=== PATIENT | female | born 1950 | race American Indian/Alaskan Native ===

== ENCOUNTER 2018-08-15 06:06 | Inpatient (IN) | payer BC, MEDICARE ==
[2018-08-08 13:42] VITALS: BMI 31.0
[2018-08-15 07:09] LABS: HEMOGLOBIN 12.7 g/dL (12.0-16.0); MEAN CELL VOLUME 88.4 fl (81.0-99.0); MEAN CORPUSCULAR HEMOGLOBIN 29.9 pg (27.0-31.0); MEAN CORPUSCULAR HGB CONC 33.9 g/dL (33.0-37.0); RBC 4.25 Mil/uL (3.80-5.20); RED CELL DISTRIBUTION WIDTH 13.6 % (11.5-14.5); WHITE BLOOD COUNT 4.5 K/uL (4.8-10.8)
[2018-08-15] MEDS ORDERED: Bacitracin Ointment 30 GM TUBE ONE (07:48)
[2018-08-15] MEDS ORDERED: Thrombin Topical 5,000 Int Units Spray Kit ONE (07:48)
[2018-08-15] MEDS ORDERED: Absorbable Gelatin Sponge Size 12-7 ONE (07:48)
[2018-08-15] MEDS ORDERED: Lactated Ringer's 1,000 ML IV ONE ×2 (07:56→14:30)
--- NOTE | 2018-08-15 08:22 | CP.PCM.CON ---
History of Present Illness - History of Present Illness History of Present Illness: Orthopedic H&P: Dr. Brock Patient is a 68 y/o F with PMH of RA, gastritis, HTN and mitral valve regurgitation presents for elective L TITO. The patient has had history of non- traumatic, chronic L hip pain for the past year that has been resistant to conservative management. She elected for surgical intervention with total joint replacement. The pain has severely limited her activities of daily living such as walking and sitting. The pain is dull, intermittent and located at the groin. The pain worsens with WB activities and alleviates with rest. She denies radiation of pain, numbness or tingling. She also denies CP/SOB/N/V/D/fever/ dysuria/melena. She denies any h/o thromboembolic events/cardiovasuscular surgeries. Review of Systems - Review of Systems All systems: reviewed and no additional remarkable complaints except Review of Systems: as per HPI Past Patient History - Past Medical History & Family History Past Medical History?: Yes Past Family History: Reviewed and not pertinent - Past Social History Smoking Status: Never Smoked Alcohol: None Drugs: Denies - CARDIAC Hx Cardiac Disorders: Yes Hx Hypertension: Yes - PULMONARY Hx Respiratory Disorders: No - NEUROLOGICAL Hx Neurological Disorder: No - HEENT Hx HEENT Problems: No - RENAL Hx Chronic Kidney Disease: No - ENDOCRINE/METABOLIC Hx Endocrine Disorders: No - HEMATOLOGICAL/ONCOLOGICAL Hx Blood Disorders: No - INTEGUMENTARY Hx Dermatological Problems: No - MUSCULOSKELETAL/RHEUMATOLOGICAL Hx Musculoskeletal Disorders: Yes Hx Arthritis: Yes (general) Hx Degenerative Joint Disease: Yes Hx Rheumatoid Arthritis: Yes - GASTROINTESTINAL Hx Gastrointestinal Disorders: Yes Hx Gastritis: Yes Hx Ulcer: Yes (GASTRIC) - GENITOURINARY/GYNECOLOGICAL Hx Genitourinary Disorders: No - PSYCHIATRIC Hx Psychophysiologic Disorder: No Hx Substance Use: No - SURGICAL HISTORY Hx Surgeries: Yes Hx Appendectomy: Yes Hx Hysterectomy: Yes Other/Comment: Uterine sx - ANESTHESIA Hx Anesthesia: Yes Hx Anesthesia Reactions: No Hx Malignant Hyperthermia: No Has any member of the family had a problem w/ anesthesia?: No Meds Allergies/Adverse Reactions: Allergies Allergy/AdvReac Type Severity Reaction Status Date / Time Penicillins Allergy Verified 07/31/18 07:47 - Medications Medications: as per med rec Physical Exam - Constitutional Appears: Well, No Acute Distress - Head Exam Head Exam: ATRAUMATIC, NORMOCEPHALIC - Eye Exam Eye Exam: EOMI, Normal appearance, PERRL - ENT Exam ENT Exam: Mucous Membranes Moist - Respiratory Exam Respiratory Exam: Clear to Auscultation Bilateral, NORMAL BREATHING PATTERN - Cardiovascular Exam Cardiovascular Exam: +S1, +S2 - GI/Abdominal Exam GI & Abdominal Exam: Normal Bowel Sounds, Soft - Extremities Exam Additional comments: L hip: +lateral hip and groin tenderness no lesion, no erythema sensation intact SP/DP/TN motor intact EHL/FHL/TA/G/Q/HS pedal pulses intact comps soft NT b/l - Neurological Exam Neurological exam: Alert, Oriented x3 - Psychiatric Exam Psychiatric exam: Normal Affect, Normal Mood - Skin Skin Exam: Normal Color, Warm Results - Vital Signs Recent Vital Signs: Last Vital Signs Temp 98 F 08/15/18 06:46 Pulse 72 08/15/18 06:49 Resp 20 08/15/18 06:46 BP 133/67 08/15/18 06:46 Pulse Ox 96 08/15/18 06:46 - Labs Result Diagrams: 08/15/18 06:35 Labs: Laboratory Results - last 24 hr 08/15/18 08/15/18 06:35 06:35 WBC 4.5 L RBC 4.25 Hgb 12.7 Hct 37.6 MCV 88.4 MCH 29.9 MCHC 33.9 RDW 13.6 Plt Count 217 Crossmatch See Detail BBK History Checked No verified bt Assessment & Plan (1) Osteoarthritis of left hip Assessment and Plan: -OR today for elective L TITO -Risks/benefits/alternatives were explained to the patient who understands and agrees to proceed with above procedure -Medical/cardiac clearance in chart -NPO -Admit to hospitalist -above d/w Dr. Brock in agreement Status: Acute - Date & Time Date: 08/15/18 Time: 08:00
[2018-08-15 08:39] LABS: INR 0.9; PROTHROMBIN TIME 10.3 Seconds (9.8-13.1)
[2018-08-15 08:42] LABS: PARTIAL THROMBOPLASTIN TIME 32.6 Seconds (25.6-37.1)
[2018-08-15] MEDS ORDERED: Propofol 10 mg/ml Inj (20 ML) ONE (10:34)
[2018-08-15] MEDS ORDERED: Rocuronium 10 mg/ml (5 ml) ONE ×2 (10:35→14:09)
[2018-08-15] MEDS ORDERED: Lidocaine 4% (Laryng-O-Jet) Kit MM ONE (10:35)
[2018-08-15] MEDS ORDERED: Neostigmine 1:1000 (1 mg/ml) Inj ONE (10:35)
[2018-08-15] MEDS ORDERED: Midazolam 2 MG/2 ML VIAL ONE (10:35)
[2018-08-15] MEDS ORDERED: Succinylcholine 200 mg/10 ml Inj IV ONE (10:35)
[2018-08-15] MEDS ORDERED: Lidocaine 1% 5ml Abboject ONE (10:36)
[2018-08-15] MEDS ORDERED: Sodium Chloride 0.9% 10 ML IV ONE (10:37)
[2018-08-15] MEDS ORDERED: ePHEDrine 50 mg/ml Inj ONE (10:37)
[2018-08-15] MEDS ORDERED: Phenylephrine 10 mg/ml Inj ONE (10:37)
[2018-08-15] MEDS ORDERED: Morphine 1 mg/ml preservative-free Inj(Duramorph) ONE (10:39)
[2018-08-15] MEDS ORDERED: Tranexamic Acid 1,000 MG in Sodium Chloride 0.9% 100 ML IVPB SCH (11:00)
[2018-08-15] MEDS ORDERED: Tranexamic Acid 1,000 MG in Sodium Chloride 0.9% 100 ML IVPB ONE (11:00)
[2018-08-15] MEDS ORDERED: Clindamycin 300 mg/2 ml Inj IVPB ONE (11:30)
[2018-08-15] MEDS ORDERED: EPINEPHrine 1 mg/ml (1:1000) Inj ONE (11:56)
[2018-08-15] MEDS ORDERED: HEMOSTATIC MATRIX 10 ML DIS.NEEDLE TOP ONE (14:01)
[2018-08-15] MEDS ORDERED: Sodium Chloride 0.9% 1,000 ML IV SCH (14:30)
[2018-08-15] MEDS ORDERED: DiphenhydrAMINE 50 mg/ml Inj IVP PRN (15:47)
[2018-08-15] MEDS ORDERED: Oxycodone/Acetaminophen 5/325 mg Tab PO PRN (15:47)
--- NOTE | 2018-08-15 17:00 | CP.PCM.HP ---
History of Present Illness - History of Present Illness History of Present Illness: Pt is a 68 yo Female with PMH of HTN, gastritis, RH arthritis with mitral regurgitation. S/P Elective Total LEFT hip replacement due to failure of medically management. Pt state Hip pain have been present for past year, it exacerbated by walking/activity, and relieved by rest. Pt have been seeing doctor for pain management with no relief. Pt denies any falls or trauma, state its due degenerative disorder. Pt have no other complain she denies any SOB, chest pain, abdominal pain, dysuria or polyuria. ROS: No pertinent positive except if mentioned in HPI Allergies: Penecillins Medication: Embrel, Hydrochlorothiazide 25mg PMH: as mentioned PSH: Total LEFT hip replacement Social: denies smoke drink or drug use Present on Admission - Present on Admission Any Indicators Present on Admission: No Review of Systems - Constitutional Constitutional: As Per HPI - EENT Eyes: As Per HPI - Breasts Breasts: As Per HPI - Cardiovascular Cardiovascular: As Per HPI - Respiratory Respiratory: As Per HPI - Gastrointestinal Gastrointestinal: As Per HPI - Genitourinary Genitourinary: As Per HPI - Reproductive: Female Reproductive:Female: As Per HPI - Menstruation Menstruation: As Per HPI - Musculoskeletal Musculoskeletal: As Per HPI - Integumentary Integumentary: As Per HPI Past Patient History - Past Medical History & Family History Past Medical History?: Yes Past Family History: Reviewed and not pertinent - Past Social History Smoking Status: Never Smoked Alcohol: None Drugs: Denies - CARDIAC Hx Cardiac Disorders: Yes Hx Hypertension: Yes - PULMONARY Hx Respiratory Disorders: No - NEUROLOGICAL Hx Neurological Disorder: No - HEENT Hx HEENT Problems: No - RENAL Hx Chronic Kidney Disease: No - ENDOCRINE/METABOLIC Hx Endocrine Disorders: No - HEMATOLOGICAL/ONCOLOGICAL Hx Blood Disorders: No - INTEGUMENTARY Hx Dermatological Problems: No - MUSCULOSKELETAL/RHEUMATOLOGICAL Hx Musculoskeletal Disorders: Yes Hx Arthritis: Yes (general) Hx Degenerative Joint Disease: Yes Hx Rheumatoid Arthritis: Yes - GASTROINTESTINAL Hx Gastrointestinal Disorders: Yes Hx Gastritis: Yes Hx Ulcer: Yes (GASTRIC) - GENITOURINARY/GYNECOLOGICAL Hx Genitourinary Disorders: No - PSYCHIATRIC Hx Psychophysiologic Disorder: No Hx Substance Use: No - SURGICAL HISTORY Hx Surgeries: Yes Hx Appendectomy: Yes Hx Hysterectomy: Yes Other/Comment: Uterine sx - ANESTHESIA Hx Anesthesia: Yes Hx Anesthesia Reactions: No Hx Malignant Hyperthermia: No Has any member of the family had a problem w/ anesthesia?: No Meds Allergies/Adverse Reactions: Allergies Allergy/AdvReac Type Severity Reaction Status Date / Time Penicillins Allergy Verified 07/31/18 07:47 Physical Exam - Constitutional Appears: Well, Non-toxic, No Acute Distress - Head Exam Head Exam: ATRAUMATIC, NORMAL INSPECTION, NORMOCEPHALIC - Eye Exam Eye Exam: EOMI, Normal appearance, PERRL Pupil Exam: NORMAL ACCOMODATION, PERRL - ENT Exam ENT Exam: Mucous Membranes Moist, Normal Exam - Neck Exam Neck exam: Positive for: Normal Inspection - Respiratory Exam Respiratory Exam: Clear to Auscultation Bilateral, NORMAL BREATHING PATTERN - Cardiovascular Exam Cardiovascular Exam: REGULAR RHYTHM, +S1, +S2 - GI/Abdominal Exam GI & Abdominal Exam: Hypoactive Bowel Sounds, Soft. absent: Tenderness - Neurological Exam Neurological exam: Alert - Psychiatric Exam Psychiatric exam: Normal Affect, Normal Mood - Skin Skin Exam: Dry, Intact, Normal Color, Warm - Additional Findings Additional findings: Pt was seen in the Post surgery room, Pt had samra hugger on, LEFT leg was wrapped. Results - Vital Signs Recent Vital Signs: Last Vital Signs Temp 96.5 F L 08/15/18 16:35 Pulse 69 08/15/18 16:50 Resp 18 08/15/18 16:50 BP 110/67 08/15/18 16:50 Pulse Ox 99 08/15/18 16:50 - Labs Result Diagrams: 08/15/18 06:35 Labs: Laboratory Results - last 24 hr 08/15/18 08/15/18 08/15/18 06:35 06:35 08:19 WBC 4.5 L RBC 4.25 Hgb 12.7 Hct 37.6 MCV 88.4 MCH 29.9 MCHC 33.9 RDW 13.6 Plt Count 217 PT 10.3 INR 0.9 APTT 32.6 Blood Type O POSITIVE Blood Type Confirm Antibody Screen Negative Crossmatch See Detail BBK History Checked No verified bt 08/15/18 08:19 WBC RBC Hgb Hct MCV MCH MCHC RDW Plt Count PT INR APTT Blood Type Blood Type Confirm O POSITIVE Antibody Screen Crossmatch BBK History Checked Assessment & Plan - Assessment and Plan (Free Text) Assessment: Pt is a 68 yo Female with PMH of HTN, gastritis, RH arthritis with mitral regurgitation. S/P Elective Total LEFT hip replacement. Post op day #0 Elective Total LEFT hip replacement Post Op day 0 Pt Awake, and alert Pt recovering well from surgery Vitals BP is 98/57, 71 HRother WNL Plan f/u CBC/ BMP F/U urine output 1L NaCL 100 ml h Continue Cleocin for surgery prophylaxis measure Motrin PRn for pain Oxycodon Prn for pain HTn Pt have Chronic HTn BP is 98/57 Plan WIll follow BP as this may be due to anesthesia Will reassess for blood pressure tomorrow As per now continue Home medication - Hydrochlorothiazide 25mg RH Arthritis Pt have hx of chronic arthritis Plan Continue home medication - Enbrel DVT Prophylaxis Lovenox 40
--- NOTE | 2018-08-15 17:04 | RAD ---
PROCEDURE: Left Hip X-ray Radiographs. HISTORY: s/p L TITO COMPARISON: None. FINDINGS: BONES: There is no acute displaced fracture or bone destruction. Bone alignment and mineralization are normal. JOINTS: Status post total left hip arthroplasty. The right hip joint space is preserved. SOFT TISSUES: There is soft tissue emphysema in the left periarticular soft tissues. OTHER FINDINGS: None. IMPRESSION: Status post total left hip arthroplasty, no acute complications.
--- NOTE | 2018-08-15 17:28 | PCM.SURG1 ---
Surgeon's Initial Post Op Note - Surgeon's Notes Surgeon: Vinod Chauffeur: DAVID Waggoner/ 2nd assist marium May Type of Anesthesia: General Endo, Spinal Anesthesia Administered By: DR Giron Pre-Operative Diagnosis: Severe Osteoarthritis L hip Operative Findings: Severe O/A L hip. synovitis L hip Post-Operative Diagnosis: as above Operation Performed: L THR- anterior approach. femoral neck osteotomy. release iliopsoas tendon. autograft bone graft to acetabulum. computer navigation Specimen/Specimens Removed: cartilage/synovium/bone Estimated Blood Loss: EBL {In ML}: 175 Blood Products Given: N/A Drains Used: No Drains Post-Op Condition: Good Date of Surgery/Procedure: 08/15/18 Time of Surgery/Procedure: 12:45 (time in room/anaesthesia uindcution time 11:15 )
[2018-08-15] MEDS: Clindamycin 600mg/50ml D5W 600 MG/50 ML VIAL IVPB SCH (21:18)
[2018-08-16] MEDS: Clindamycin 600mg/50ml D5W 600 MG/50 ML VIAL IVPB SCH (02:43)
[2018-08-16 07:02] LABS: HEMOGLOBIN 10.5 g/dL (12.0-16.0); MEAN CELL VOLUME 89.7 fl (81.0-99.0); MEAN CORPUSCULAR HGB CONC 33.4 g/dL (33.0-37.0); RBC 3.51 Mil/uL (3.80-5.20); RED CELL DISTRIBUTION WIDTH 14.1 % (11.5-14.5)
[2018-08-16 07:15] LABS: BLOOD UREA NITROGEN 16 mg/dl (7-17); CALCIUM 8.6 mg/dL (8.4-10.2); GFR NON-AFRICAN AMERICAN > 60
[2018-08-16] MEDS: Cholecalciferol 1,000 INTLU TAB PO SCH (08:48)
--- NOTE | 2018-08-16 10:30 | CP.PCM.PN ---
Subjective - Date & Time of Evaluation Date of Evaluation: 08/16/18 Time of Evaluation: 07:00 - Subjective Subjective: Pt is seen and examined at bedside with Dr Armstrong. Pt have no complain as per today. She denies any pain. She was able to ambulate to bathroom with help. She was able to pass urine 200cc, and gas but no stool. Pt would like stool softener. Pt denies fever, chills, chest pain abd pain diarrhea constipation or any other symptoms as per now. Pt is exited to start working with Physical therapy. Objective - Vital Signs/Intake and Output Vital Signs (last 24 hours): Temp Pulse Resp BP Pulse Ox 98.0 F 100 H 19 109/72 100 08/16/18 07:57 08/16/18 09:10 08/16/18 07:57 08/16/18 07:57 08/16/18 09:10 - Medications Medications: Current Medications Acetaminophen (Tylenol 325mg Tab) 650 mg PO Q6 [facility] Last Admin: 08/16/18 03:15 Dose: 650 mg Cholecalciferol (Vitamin D) 5,000 intlu PO DAILY [facility] Last Admin: 08/16/18 08:48 Dose: 5,000 intlu Diphenhydramine HCl (Benadryl) 50 mg IVP Q6 PRN PRN Reason: Itching / Pruritus Docusate Sodium (Colace) 100 mg PO BID [facility] Last Admin: 08/16/18 08:47 Dose: 100 mg Docusate Sodium (Colace) 100 mg PO TID PRN PRN Reason: Constipation Enoxaparin Sodium (Lovenox) 40 mg SC Q24H [facility] PRN Reason: Protocol Ferrous Sulfate (Feosol) 325 mg PO BID [facility] Last Admin: 08/16/18 08:47 Dose: 325 mg Folic Acid (Folic Acid) 1 mg PO DAILY [facility] Last Admin: 08/16/18 08:48 Dose: 1 mg Hydrochlorothiazide (Hydrodiuril) 25 mg PO DAILY [facility] Last Admin: 08/16/18 08:48 Dose: 25 mg Hydromorphone HCl (Dilaudid) 0.5 mg IVP Q4 PRN PRN Reason: Pain, severe (8-10) Sodium Chloride (Sodium Chloride 0.9%) 1,000 mls @ 80 mls/hr IV .[id number] [facility] Stop: 08/16/18 15:29 Last Admin: 08/16/18 02:45 Dose: 80 mls/hr Ondansetron HCl (Zofran Inj) 4 mg IVP Q6 PRN PRN Reason: Nausea/Vomiting Ondansetron HCl (Zofran Inj) 4 mg IVP Q6 PRN PRN Reason: Nausea/Vomiting Last Admin: 08/15/18 20:21 Dose: 4 mg Oxycodone HCl (Oxycodone Immediate Release Tab) 10 mg PO Q6 PRN PRN Reason: Pain, moderate (4-7) Oxycodone/Acetaminophen (Percocet 5/325 Mg Tab) 1 tab PO Q4 PRN PRN Reason: For PCEA Breakthrough Pain Stop: 08/18/18 15:48 Sennosides (Senokot Tab) 8.6 mg PO BID PRN PRN Reason: Constipation - Labs Labs: 08/16/18 06:15 08/16/18 06:15 PT 10.3 Seconds (9.8-13.1) 08/15/18 08:19 INR 0.9 08/15/18 08:19 APTT 32.6 Seconds (25.6-37.1) 08/15/18 08:19 - Constitutional Appears: Well, Non-toxic, No Acute Distress - Head Exam Head Exam: ATRAUMATIC, NORMAL INSPECTION, NORMOCEPHALIC - Eye Exam Eye Exam: EOMI, Normal appearance, PERRL Pupil Exam: NORMAL ACCOMODATION, PERRL - ENT Exam ENT Exam: Mucous Membranes Moist, Normal Exam - Neck Exam Neck Exam: Full ROM, Normal Inspection - Respiratory Exam Respiratory Exam: Clear to Ausculation Bilateral, NORMAL BREATHING PATTERN - Cardiovascular Exam Cardiovascular Exam: REGULAR RHYTHM, +S1, +S2 - GI/Abdominal Exam GI & Abdominal Exam: Soft, Normal Bowel Sounds - Extremities Exam Extremities Exam: Normal Capillary Refill, Normal Inspection Additional comments: SHASHA wrap noted on LEFT KNEE, surgical Pad noted on LEFT medial side of the THIGH. Pulse + in both extremities no calf tenderness Assessment and Plan - Assessment and Plan (Free Text) Assessment: Pt is a 68 yo f with PMH of HTN, Gastritis, RH arthritis With mitral regurgitation. S/P elective total LEFT Hip replacement. POST OP day #1 Elective Total LEFT hip replacement Post Op day 1 Pt Awake, and alert oriented Pt is recovering very well Able to ambulate with help, and pass urine Have passed gas but no stool Vitals WNL except HR of 100, BP is 104/68 CBC: hgb 10.5 from 12.7, hct 31.6 from 37.6 WBC WNL BNP WNL Plan Continue Cleocin for surgery prophylaxis measure Motrin PRn for pain Oxycodon Prn for pain Acute Anemia most likely due surgery hgb 10.5 from 12.7, hct 31.6 Plan Continue Ferrous sulfate Give Colace HTn Pt have Chronic HTn Plan BP improved, Pt mildly tachycardia will follow As per now continue Home medication - Hydrochlorothiazide 25mg RH Arthritis Pt have hx of chronic arthritis Plan Continue home medication - Enbrel DVT Prophylaxis Lovenox 40
--- NOTE | 2018-08-16 11:18 | CP.PCM.CON ---
History of Present Illness - History of Present Illness History of Present Illness: THE PATIENT IS A 68 YEAR OLD FEMALE WITH A HISTORY OF RHEUMATOID ARTHRITIS WHO UNDERWENT A LEFT THR YESTERDAY FOR PAIN NOT RELIEVED BY CONSERVATIVE TREATMENT. SHE ALSO HAD BILATERAL KNEE SURGERY IN THE PAST. CARDIOLOGY WAS ASKED TO FOLLOW HER ON THIS ADMISSION. SHE DENIES ANY HISTORY OF CHEST PAIN OR CAD AND HAD A NEGATIVE PHARMACOLOGICAL STRESS TEST BEFORE SURGERY. SHE ALSO HAD AN ECHOCARDIOGRAM THAT SHE STATES SHOWED MITRAL REGURGITATION. Past Patient History - Past Medical History & Family History Past Medical History?: Yes Past Family History: Reviewed and not pertinent - Past Social History Smoking Status: Never Smoked Alcohol: None Drugs: Denies - CARDIAC Hx Cardiac Disorders: Yes Hx Hypertension: Yes - PULMONARY Hx Respiratory Disorders: No - NEUROLOGICAL Hx Neurological Disorder: No - HEENT Hx HEENT Problems: No - RENAL Hx Chronic Kidney Disease: No - ENDOCRINE/METABOLIC Hx Endocrine Disorders: No - HEMATOLOGICAL/ONCOLOGICAL Hx Blood Disorders: No - INTEGUMENTARY Hx Dermatological Problems: No - MUSCULOSKELETAL/RHEUMATOLOGICAL Hx Musculoskeletal Disorders: Yes Hx Arthritis: Yes (general) Hx Degenerative Joint Disease: Yes Hx Rheumatoid Arthritis: Yes - GASTROINTESTINAL Hx Gastrointestinal Disorders: Yes Hx Gastritis: Yes Hx Ulcer: Yes (GASTRIC) - GENITOURINARY/GYNECOLOGICAL Hx Genitourinary Disorders: No - PSYCHIATRIC Hx Psychophysiologic Disorder: No Hx Substance Use: No - SURGICAL HISTORY Hx Surgeries: Yes Hx Appendectomy: Yes Hx Hysterectomy: Yes Other/Comment: Uterine sx - ANESTHESIA Hx Anesthesia: Yes Hx Anesthesia Reactions: No Hx Malignant Hyperthermia: No Has any member of the family had a problem w/ anesthesia?: No Meds Allergies/Adverse Reactions: Allergies Allergy/AdvReac Type Severity Reaction Status Date / Time Penicillins Allergy Verified 07/31/18 07:47 - Medications Medications: Current Medications Acetaminophen (Tylenol 325mg Tab) 650 mg PO Q6 [facility] Last Admin: 08/16/18 03:15 Dose: 650 mg Cholecalciferol (Vitamin D) 5,000 intlu PO DAILY [facility] Last Admin: 08/16/18 08:48 Dose: 5,000 intlu Diphenhydramine HCl (Benadryl) 50 mg IVP Q6 PRN PRN Reason: Itching / Pruritus Docusate Sodium (Colace) 100 mg PO BID [facility] Last Admin: 08/16/18 08:47 Dose: 100 mg Docusate Sodium (Colace) 100 mg PO TID PRN PRN Reason: Constipation Enoxaparin Sodium (Lovenox) 40 mg SC Q24H [facility] PRN Reason: Protocol Ferrous Sulfate (Feosol) 325 mg PO BID [facility] Last Admin: 08/16/18 08:47 Dose: 325 mg Folic Acid (Folic Acid) 1 mg PO DAILY [facility] Last Admin: 08/16/18 08:48 Dose: 1 mg Hydrochlorothiazide (Hydrodiuril) 25 mg PO DAILY [facility] Last Admin: 08/16/18 08:48 Dose: 25 mg Hydromorphone HCl (Dilaudid) 0.5 mg IVP Q4 PRN PRN Reason: Pain, severe (8-10) Sodium Chloride (Sodium Chloride 0.9%) 1,000 mls @ 80 mls/hr IV .[id number] [facility] Stop: 08/16/18 15:29 Last Admin: 08/16/18 02:45 Dose: 80 mls/hr Ondansetron HCl (Zofran Inj) 4 mg IVP Q6 PRN PRN Reason: Nausea/Vomiting Ondansetron HCl (Zofran Inj) 4 mg IVP Q6 PRN PRN Reason: Nausea/Vomiting Last Admin: 08/15/18 20:21 Dose: 4 mg Oxycodone HCl (Oxycodone Immediate Release Tab) 10 mg PO Q6 PRN PRN Reason: Pain, moderate (4-7) Oxycodone/Acetaminophen (Percocet 5/325 Mg Tab) 1 tab PO Q4 PRN PRN Reason: For PCEA Breakthrough Pain Stop: 08/18/18 15:48 Sennosides (Senokot Tab) 8.6 mg PO BID PRN PRN Reason: Constipation Physical Exam - Respiratory Exam Respiratory Exam: Clear to Auscultation Bilateral - Cardiovascular Exam Cardiovascular Exam: REGULAR RHYTHM, +S1, +S2 - Extremities Exam Additional comments: NO LE EDEMA Results - Vital Signs Recent Vital Signs: Last Vital Signs Temp 98.0 F 08/16/18 07:57 Pulse 100 H 08/16/18 09:10 Resp 19 08/16/18 07:57 BP 109/72 08/16/18 07:57 Pulse Ox 100 08/16/18 09:10 - Labs Result Diagrams: 08/16/18 06:15 08/16/18 06:15 Labs: Laboratory Results - last 24 hr 08/16/18 08/16/18 06:15 06:15 WBC 8.0 D RBC 3.51 L Hgb 10.5 L D Hct 31.5 L MCV 89.7 MCH 30.0 MCHC 33.4 RDW 14.1 Plt Count 166 Sodium 139 Potassium 4.1 Chloride 106 Carbon Dioxide 25 Anion Gap 12 BUN 16 Creatinine 0.8 Est GFR ( Amer) > 60 Est GFR (Non-Af Amer) > 60 Random Glucose 118 H Calcium 8.6 Assessment & Plan - Assessment and Plan (Free Text) Assessment: LEFT TOTAL HIP REPLACEMENT HYPERTENSION Plan: CONTINUE HCTZ, LOVENOX AND PAIN MEDICINES
--- NOTE | 2018-08-16 13:04 | RAD ---
Date of service: 08/15/2018 PROCEDURE: Fluoroscopy up to 1 hr. HISTORY: LT. HIP ORIF COMPARISON: None TECHNIQUE: Standard protocol for this study/examination. FINDINGS: Total fluoroscopic time (continuous mode) utilized during the procedure 13.2 (seconds). IMPRESSION: Less than 1 hr fluoroscopic assistance provided during performance of the procedure.
--- NOTE | 2018-08-16 13:24 | CP.PCM.PN ---
Subjective - Date & Time of Evaluation Date of Evaluation: 08/16/18 Time of Evaluation: 13:21 - Subjective Subjective: Patient states pain is moderate but controlled. Sitting on edge of bed eating breakfast. Denies CP/SOB/dizziness. Objective - Vital Signs/Intake and Output Vital Signs (last 24 hours): Temp Pulse Resp BP Pulse Ox 98.0 F 100 H 19 109/72 100 08/16/18 07:57 08/16/18 09:10 08/16/18 07:57 08/16/18 07:57 08/16/18 09:10 - Medications Medications: Current Medications Acetaminophen (Tylenol 325mg Tab) 650 mg PO Q6 [facility] Last Admin: 08/16/18 10:00 Dose: 650 mg Cholecalciferol (Vitamin D) 5,000 intlu PO DAILY [facility] Last Admin: 08/16/18 08:48 Dose: 5,000 intlu Diphenhydramine HCl (Benadryl) 50 mg IVP Q6 PRN PRN Reason: Itching / Pruritus Docusate Sodium (Colace) 100 mg PO BID [facility] Last Admin: 08/16/18 08:47 Dose: 100 mg Docusate Sodium (Colace) 100 mg PO TID PRN PRN Reason: Constipation Enoxaparin Sodium (Lovenox) 40 mg SC Q24H [facility] PRN Reason: Protocol Ferrous Sulfate (Feosol) 325 mg PO BID [facility] Last Admin: 08/16/18 08:47 Dose: 325 mg Folic Acid (Folic Acid) 1 mg PO DAILY [facility] Last Admin: 08/16/18 08:48 Dose: 1 mg Hydrochlorothiazide (Hydrodiuril) 25 mg PO DAILY [facility] Last Admin: 08/16/18 08:48 Dose: 25 mg Hydromorphone HCl (Dilaudid) 0.5 mg IVP Q4 PRN PRN Reason: Pain, severe (8-10) Last Admin: 08/16/18 11:15 Dose: 0.5 mg Sodium Chloride (Sodium Chloride 0.9%) 1,000 mls @ 80 mls/hr IV .[id number] [facility] Stop: 08/16/18 15:29 Last Admin: 08/16/18 02:45 Dose: 80 mls/hr Ondansetron HCl (Zofran Inj) 4 mg IVP Q6 PRN PRN Reason: Nausea/Vomiting Ondansetron HCl (Zofran Inj) 4 mg IVP Q6 PRN PRN Reason: Nausea/Vomiting Last Admin: 08/15/18 20:21 Dose: 4 mg Oxycodone HCl (Oxycodone Immediate Release Tab) 10 mg PO Q6 PRN PRN Reason: Pain, moderate (4-7) Oxycodone/Acetaminophen (Percocet 5/325 Mg Tab) 1 tab PO Q4 PRN PRN Reason: For PCEA Breakthrough Pain Stop: 08/18/18 15:48 Sennosides (Senokot Tab) 8.6 mg PO BID PRN PRN Reason: Constipation - Labs Labs: 08/16/18 06:15 08/16/18 06:15 PT 10.3 Seconds (9.8-13.1) 08/15/18 08:19 INR 0.9 08/15/18 08:19 APTT 32.6 Seconds (25.6-37.1) 08/15/18 08:19 - Extremities Exam Additional comments: Left hip: thigh soft, mildly tender, +ROM ankle/toes, sensation intact +DP/PT pulses calves soft NT neg homans sensation intact, dressing intact, no visible drainage Assessment and Plan (1) Osteoarthritis of left hip Assessment & Plan: POD#1 s/p left THR -PT/OT-d/c planning VTE proph ortho stable d/w Dr. Brock, agrees with above Status: Acute (2) Acute blood loss anemia Assessment & Plan: stable Status: Acute
[2018-08-16] MEDS: Enoxaparin 40 mg Syringe SC SCH (17:40)
--- NOTE | 2018-08-16 18:35 | OP ---
PROCEDURE DATE: 08/15/2018 LOCATION: [facility]. PREOPERATIVE DIAGNOSIS: Severe primary osteoarthritis of the left hip. POSTOPERATIVE DIAGNOSIS: Severe primary osteoarthritis of the left hip. PROCEDURES: 1. Left total hip replacement arthroplasty, anterior approach. 2. Femoral neck osteotomy (deserves a modifier separate procedure because of the extensive preoperative planning, intraoperative planning to achieve leg-length and equality). 3. Arthrotomy and synovectomy. 4. Release of iliopsoas tendon. 5. Autograft bone grafting. 6. Computer navigation. SURGEON: Giacomo Brock MD ENGINEERING TECHNICAL ANALYST: CINTHIA August, certified registered nursing first mate. SECOND EARTH SCIENCE TECHNICAL OFFICER: Mike May PA-C. OPERATIVE PROCEDURE: Nikki Montes is a woman well-known to my practice, who presents as a referral from Dr. Carney. She has systemic rheumatoid arthritis with superimposed severe degenerative change. Pros, cons, risks and benefits of surgical approach were discussed. The possibility of mechanical failure, infection, thromboembolic disease, possibility of secondary or tertiary surgery was discussed. The concept of computer navigation had been discussed. After having obtained informed consent in the above fashion, after having identified side, site and procedure and critical pause/time-out, after the satisfactory induction of the anesthetic, the patient identified as Nikki Montes, is placed in the supine position in the [facility] positioner. The pannus was reflected out of the surgical field and the topographic anatomy of the hip was identified, the anterior superior iliac spine, the greater trochanter. After sterilely prepping and draping the left hip and the left lower extremity under the surgeon's direction, the fluoroscope was positioned, video images were generated, therapeutic decisions were made therefrom. Verification of position was accomplished and preoperative planning for the level of the neck osteotomy had been accomplished and intraoperative confirmation was accomplished at this point in time. At this point in time, the [employer] computer navigation process is introduced at the anterior superior iliac spine on the right and the anterior superior iliac spine on the left. Verification of position was offered on image intensification views, and after sterilely prepping and draping, after the satisfactory induction of the anesthetic, after having obtained informed consent in the above fashion. An incision was described one fingerbreadth distal to the anterior superior iliac spine and four fingerbreadths distal to that. The patient is morbidly obese and this is a complexity modifier. The patient is morbidly obese with BMI demanding that clarification. An incision was accomplished 3 cm posterior to the anterior superior iliac spine and 1 cm distal inline with the tensor fascia femoris muscle. The skin incision was carried down through the skin and subcutaneous tissue. Hemostasis controlled with the electrocautery. Hemostasis controlled with the Aquamantys wand. This having been accomplished, the fascia superficial to the tensor fascia femoris muscle was divided and this having been accomplished, the Larry was used to grasp the anterior leading edge and the muscle was taken down from the investing fascia. This having been accomplished, the muscle was taken down from the investing fascia. The Medacta Weitlaner retractor was placed and the vessels at the posterior aspect of the rectus femoris are clearly identified and the Aquamantys was used to control the same. This having been accomplished, the modified Medacta retractor was placed deeper. The fascia was carefully divided cell layer by cell layer and the underlying anterior branch of the lateral femoral circumflex vessels is identified. This having been accomplished, the vessels were grasped and are divided after they were grasped with tonsil clamps and hemostasis controlled with suture ligature. This having been accomplished, the fat pad in the region of the acetabulum was elevated and all fat pads superficial to the hip capsule were elevated. This having been accomplished, the capsule was elevated from lateral to medial and is elevated from the neck of the femur. This was brought back in the area of the intertrochanteric tubercle and the capsule was tagged, portion was released. This having been accomplished, the wound was thoroughly irrigated. The Medacta retractor was used to replace to expose the neck. A Ray-Cyrus sponge is packed and this having been accomplished, the osteotomy was accomplished in the area of the greater trochanter at the predetermined point as planned both preoperatively and virtually intraoperatively with image intensification views. This having been accomplished, external rotation 45 degrees with complex 0.5 inch osteotome is used to expose the neck. The corkscrew was placed, the was removed, osteophytes removed. The labrum was excised anterior and posterior. The Medacta retractor was placed and this having been accomplished, the reaming commences head size as 50, reaming commences at 50 advances to a 52 and it should be noted that computer navigation at this point in time commences, the two K-wires were introduced into the anterior superior iliac spine. The base is applied and the optical camera for the navigation/accelerometer was placed. This having been accomplished, the navigation commences. The computer had been registered of the frontal plane and the pelvis had been registered anterior superior iliac spine medially and laterally. This having been accomplished, the probe/sensor was placed on the reamer and reamings were carried out to approximately 40 degrees of abduction and 20 degrees of anteversion. The reamings were collected and denuded via articular cartilage. At this point in time, the 52 mm reamer is the last reamer and 52 cuff trial was introduced and found to be excellent in position and fit. This having been accomplished, the reaming is denuded of articular cartilage. Autograft bone graft was used to the acetabulum. The 52 mm pack the cup was introduced for the scratched fit. Autograft bone graft to the acetabulum had been accomplished. The fit was found to be excellent. Verification of position is offered on image intensification views. This having been accomplished, attention is now turned to the femur. External rotation to 135 degrees was accomplished. At this point time, the pubofemoral ligament is released as well as the area of the piriformis fossa. The piriformis tendon was left intact and at this point in time, there was found to be more mobility of the femur. External rotation to approximately 165 degrees. At this point in time, the ischial femoral ligament is released as well. Hyperextension of the femur was accomplished and the femur was exposed with the Lakshmi retractors. It should be noted that the iliopsoas tendon had been released. At this point in time, the femur having been released is introduced into the wound. The bridge of bone between the neck of the trochanter was removed from the bur. The box chisel was removed from the femoral neck. This having been accomplished, the rasp was introduced. The canal having been found. Sequential broaching is carried out to #4 of femoral component, +3.5 head, standard neck, outer bearing was applied. The hip was reduced and found to be stable in all planes. This having been accomplished, verification of position is offered on image intensification views. This having been accomplished, the broach was removed. The stem was introduced with the ceramic and the polyethylene outer bearing. The hip was reduced and found to be stable in all planes. This having been accomplished, the wound was thoroughly irrigated. The hip was reduced and found to be stable in all planes, internal rotation, external rotation, flexion, no evidence of instability. Verification of leg length was excellent. It should be noted that the cup position by computer navigation with the sensor placed on the introduction device is found to be approximately 41 degrees and 19 degrees of anteversion. This having been found to be excellent, the wound was thoroughly irrigated. FloSeal was employed. Hemostasis controlled with the Aquamantys. Closure of the tensor fascia femoris was with 0 Quill followed by 0 Quill and vianney for skin. The closure of the incisions for the K-wires for the [employer] computer navigation is with Vicryl and nylon. Compression dressing was applied. Postoperative x-rays reveal excellent position of the construct. Giacomo Brock MD
[2018-08-17 00:29] VITALS: RESP 19
[2018-08-17 06:26] LABS: HEMOGLOBIN 9.6 g/dL (12.0-16.0); MEAN CELL VOLUME 88.9 fl (81.0-99.0); MEAN CORPUSCULAR HEMOGLOBIN 30.2 pg (27.0-31.0); RBC 3.16 Mil/uL (3.80-5.20); RED CELL DISTRIBUTION WIDTH 13.8 % (11.5-14.5); WHITE BLOOD COUNT 9.4 K/uL (4.8-10.8)
[2018-08-17 06:42] LABS: BLOOD UREA NITROGEN 11 mg/dl (7-17); CALCIUM 8.9 mg/dL (8.4-10.2); GFR NON-AFRICAN AMERICAN > 60
[2018-08-17 08:11] VITALS: BP 122/74; PULSE 98; TEMP 98.6; O2SAT 94
[2018-08-17] MEDS: oxyCODONE 10 mg Immediate Release Tab PO PRN ×2 (08:18→15:16)
[2018-08-17] MEDS: Cholecalciferol 1,000 INTLU TAB PO SCH (08:21)
[2018-08-17] MEDS ORDERED: Potassium Chloride 20 mEq ER Tab PO ONE (09:08)
--- NOTE | 2018-08-17 09:08 | CP.PCM.DIS ---
<Jared Brown - Last Filed: 08/17/18 16:59> Provider - Provider Date of Admission: 08/15/18 16:01 Attending physician: Marta Zapata MD Primary care physician: Salvatore Carney MD Time Spent in preparation of Discharge (in minutes): 20 Hospital Course - Lab Results Lab Results: Most Recent Lab Values WBC 9.4 K/uL (4.8-10.8) 08/17/18 05:35 RBC 3.16 Mil/uL (3.80-5.20) L 08/17/18 05:35 Hgb 9.6 g/dL (12.0-16.0) L 08/17/18 05:35 Hct 28.1 % (34.0-47.0) L 08/17/18 05:35 MCV 88.9 fl (81.0-99.0) 08/17/18 05:35 MCH 30.2 pg (27.0-31.0) 08/17/18 05:35 MCHC 34.0 g/dL (33.0-37.0) 08/17/18 05:35 RDW 13.8 % (11.5-14.5) 08/17/18 05:35 Plt Count 176 K/uL (130-400) 08/17/18 05:35 PT 10.3 Seconds (9.8-13.1) 08/15/18 08:19 INR 0.9 08/15/18 08:19 APTT 32.6 Seconds (25.6-37.1) 08/15/18 08:19 Sodium 138 mmol/l (132-148) 08/17/18 05:35 Potassium 3.5 MMOL/L (3.6-5.0) L 08/17/18 05:35 Chloride 102 mmol/L (98-107) 08/17/18 05:35 Carbon Dioxide 31 mmol/L (22-30) H 08/17/18 05:35 Anion Gap 9 (10-20) L 08/17/18 05:35 BUN 11 mg/dl (7-17) 08/17/18 05:35 Creatinine 0.8 mg/dl (0.7-1.2) 08/17/18 05:35 Est GFR ( Amer) > 60 08/17/18 05:35 Est GFR (Non-Af Amer) > 60 08/17/18 05:35 Random Glucose 110 mg/dL (65-105) H 08/17/18 05:35 Calcium 8.9 mg/dL (8.4-10.2) 08/17/18 05:35 25-OH Vitamin D Total 35.6 NG/ML (30.0-100.0) 08/16/18 06:15 Blood Type O POSITIVE 08/15/18 06:35 Blood Type Confirm O POSITIVE 08/15/18 08:19 Antibody Screen Negative 08/15/18 06:35 Crossmatch See Detail 08/15/18 06:35 BBK History Checked No verified bt 08/15/18 06:35 - Hospital Course Hospital Course: Pt is a 68 yo Female with PMH of HTN, gastritis, RH arthritis with mitral regurgitation. S/P Elective Total LEFT hip replacement due to failure of medically management. Was admitted for surgery to be performed on 08/16/18, There was no complication during surgery, except mild anemia due to blood loss in surgery, Pt have been treated with Ferrous sulfate, and CBC was monitored. Pt pain have improved. Pt was able to ambulate after surgery. Pt was able to pass urine, gas and stool with no difficulty, Pt denies any chest pain sob, dizziness, abd pain, diarrhea, constipation, dysuria or polyuria . Vitals were WNl. All chart and clinical data reviewed. Pt is comfortable to Go for Rehab. Pt vitals are stable, LAbs are WNL, Anemia is bieng treated with ferrous sulfate , HTN with her home medication Pt is surgically and medically clear. Medicine team agree. Will discharge Pt to Rehab. PT concern were reviewed and addressed, Pt question were answered. Case Discussed with Dr PADILLA. Pt will be discharge to Rehab. Discharge Exam - Head Exam Head Exam: ATRAUMATIC, NORMAL INSPECTION, NORMOCEPHALIC - Eye Exam Eye Exam: EOMI, Normal appearance, PERRL Pupil Exam: NORMAL ACCOMODATION, PERRL - Respiratory Exam Respiratory Exam: Clear to PA & Lateral, NORMAL BREATHING PATTERN, UNREMARKABLE - Cardiovascular Exam Cardiovascular Exam: REGULAR RHYTHM, +S1, +S2 - GI/Abdominal Exam GI & Abdominal Exam: Normal Bowel Sounds, Unremarkable - Extremities Exam Additional comments: SHASHA wrap and surgical gaze was noted on left femur - Neurological Exam Neurological exam: Alert, Oriented x3 - Psychiatric Exam Psychiatric exam: Normal Affect, Normal Mood - Skin Skin Exam: Dry, Intact, Normal Color, Warm Discharge Plan - Follow Up Plan Condition: GOOD Disposition: TRANSF TO SNF Instructions: Total Hip Replacement (DC) Referrals: Giacomo Brock III, MD [Staff Provider] - (follow-up in 10days) Salvatore Carney MD [Primary Care Provider] - <Parvin Padilla - Last Filed: 08/17/18 18:23> Provider - Provider Date of Admission: 08/15/18 16:01 Attending physician: Marta Zapata MD Primary care physician: Salvatore Carney MD Hospital Course - Lab Results Lab Results: Most Recent Lab Values WBC 9.4 K/uL (4.8-10.8) 08/17/18 05:35 RBC 3.16 Mil/uL (3.80-5.20) L 08/17/18 05:35 Hgb 9.6 g/dL (12.0-16.0) L 08/17/18 05:35 Hct 28.1 % (34.0-47.0) L 08/17/18 05:35 MCV 88.9 fl (81.0-99.0) 08/17/18 05:35 MCH 30.2 pg (27.0-31.0) 08/17/18 05:35 MCHC 34.0 g/dL (33.0-37.0) 08/17/18 05:35 RDW 13.8 % (11.5-14.5) 08/17/18 05:35 Plt Count 176 K/uL (130-400) 08/17/18 05:35 PT 10.3 Seconds (9.8-13.1) 08/15/18 08:19 INR 0.9 08/15/18 08:19 APTT 32.6 Seconds (25.6-37.1) 08/15/18 08:19 Sodium 138 mmol/l (132-148) 08/17/18 05:35 Potassium 3.5 MMOL/L (3.6-5.0) L 08/17/18 05:35 Chloride 102 mmol/L (98-107) 08/17/18 05:35 Carbon Dioxide 31 mmol/L (22-30) H 08/17/18 05:35 Anion Gap 9 (10-20) L 08/17/18 05:35 BUN 11 mg/dl (7-17) 08/17/18 05:35 Creatinine 0.8 mg/dl (0.7-1.2) 08/17/18 05:35 Est GFR ( Amer) > 60 08/17/18 05:35 Est GFR (Non-Af Amer) > 60 08/17/18 05:35 Random Glucose 110 mg/dL (65-105) H 08/17/18 05:35 Calcium 8.9 mg/dL (8.4-10.2) 08/17/18 05:35 25-OH Vitamin D Total 35.6 NG/ML (30.0-100.0) 08/16/18 06:15 Blood Type O POSITIVE 08/15/18 06:35 Blood Type Confirm O POSITIVE 08/15/18 08:19 Antibody Screen Negative 08/15/18 06:35 Crossmatch See Detail 08/15/18 06:35 BBK History Checked No verified bt 08/15/18 06:35 Attending/Attestation - Attestation I have personally seen and examined this patient.: Yes I have fully participated in the care of the patient.: Yes I have reviewed all pertinent clinical information, including history, physical exam and plan: Yes Notes (Text): 08/17/18 18:23 Seen, examined, discussed with resident, agree with findings and plan as above.
--- NOTE | 2018-08-17 09:45 | CP.PCM.PN ---
Subjective - Date & Time of Evaluation Date of Evaluation: 08/17/18 Time of Evaluation: 09:20 - Subjective Subjective: DOING OK ONLY SOME PAIN AT LEFT HIP SURGICAL SITE NO CHEST PAIN OR SOB Objective - Vital Signs/Intake and Output Vital Signs (last 24 hours): Temp Pulse Resp BP Pulse Ox 98.6 F 98 H 19 122/74 94 L 08/17/18 08:11 08/17/18 08:11 08/17/18 08:11 08/17/18 08:11 08/17/18 08:11 - Medications Medications: Current Medications Acetaminophen (Tylenol 325mg Tab) 650 mg PO Q6 [facility] Last Admin: 08/17/18 04:48 Dose: 650 mg Cholecalciferol (Vitamin D) 5,000 intlu PO DAILY [facility] Last Admin: 08/17/18 08:21 Dose: 5,000 intlu Diphenhydramine HCl (Benadryl) 50 mg IVP Q6 PRN PRN Reason: Itching / Pruritus Docusate Sodium (Colace) 100 mg PO BID [facility] Last Admin: 08/17/18 08:20 Dose: 100 mg Docusate Sodium (Colace) 100 mg PO TID PRN PRN Reason: Constipation Enoxaparin Sodium (Lovenox) 40 mg SC Q24H [facility] PRN Reason: Protocol Last Admin: 08/16/18 17:40 Dose: 40 mg Ferrous Sulfate (Feosol) 325 mg PO BID [facility] Last Admin: 08/17/18 08:21 Dose: 325 mg Folic Acid (Folic Acid) 1 mg PO DAILY [facility] Last Admin: 08/17/18 08:21 Dose: 1 mg Hydrochlorothiazide (Hydrodiuril) 25 mg PO DAILY [facility] Last Admin: 08/17/18 08:21 Dose: 25 mg Hydromorphone HCl (Dilaudid) 0.5 mg IVP Q4 PRN PRN Reason: Pain, severe (8-10) Last Admin: 08/17/18 00:22 Dose: 0.5 mg Ondansetron HCl (Zofran Inj) 4 mg IVP Q6 PRN PRN Reason: Nausea/Vomiting Last Admin: 08/16/18 15:39 Dose: 4 mg Ondansetron HCl (Zofran Inj) 4 mg IVP Q6 PRN PRN Reason: Nausea/Vomiting Last Admin: 08/15/18 20:21 Dose: 4 mg Oxycodone HCl (Oxycodone Immediate Release Tab) 10 mg PO Q6 PRN PRN Reason: Pain, moderate (4-7) Last Admin: 08/17/18 08:18 Dose: 10 mg Oxycodone/Acetaminophen (Percocet 5/325 Mg Tab) 1 tab PO Q4 PRN PRN Reason: For PCEA Breakthrough Pain Stop: 08/18/18 15:48 Potassium Chloride (K-Dur 20 Meq Er Tab) 20 meq PO DAILY [facility] Stop: 08/17/18 09:09 Sennosides (Senokot Tab) 8.6 mg PO BID PRN PRN Reason: Constipation - Labs Labs: 08/17/18 05:35 08/17/18 05:35 PT 10.3 Seconds (9.8-13.1) 08/15/18 08:19 INR 0.9 08/15/18 08:19 APTT 32.6 Seconds (25.6-37.1) 08/15/18 08:19 - Respiratory Exam Respiratory Exam: Clear to Ausculation Bilateral - Cardiovascular Exam Cardiovascular Exam: REGULAR RHYTHM, +S1, +S2 Assessment and Plan - Assessment and Plan (Free Text) Assessment: LEFT THR RHEUMATOID ARTHRITIS HYPERTENSION Plan: CONTINUE LOVENOX, HCTZ AND PAIN MEDS FOR DISCHARGE TO REHAB FACILITY
--- NOTE | 2018-08-17 12:15 | CP.PCM.PN ---
Subjective - Date & Time of Evaluation Date of Evaluation: 08/17/18 Time of Evaluation: 12:12 - Subjective Subjective: Patient states pain is well controlled. Denies CP/SOB/dizziness. Objective - Vital Signs/Intake and Output Vital Signs (last 24 hours): Temp Pulse Resp BP Pulse Ox 98.6 F 98 H 19 122/74 94 L 08/17/18 08:11 08/17/18 08:11 08/17/18 08:11 08/17/18 08:11 08/17/18 08:11 - Medications Medications: Current Medications Acetaminophen (Tylenol 325mg Tab) 650 mg PO Q6 [facility] Last Admin: 08/17/18 10:19 Dose: 650 mg Cholecalciferol (Vitamin D) 5,000 intlu PO DAILY [facility] Last Admin: 08/17/18 08:21 Dose: 5,000 intlu Diphenhydramine HCl (Benadryl) 50 mg IVP Q6 PRN PRN Reason: Itching / Pruritus Docusate Sodium (Colace) 100 mg PO BID [facility] Last Admin: 08/17/18 08:20 Dose: 100 mg Docusate Sodium (Colace) 100 mg PO TID PRN PRN Reason: Constipation Enoxaparin Sodium (Lovenox) 40 mg SC Q24H [facility] PRN Reason: Protocol Last Admin: 08/16/18 17:40 Dose: 40 mg Ferrous Sulfate (Feosol) 325 mg PO BID [facility] Last Admin: 08/17/18 08:21 Dose: 325 mg Folic Acid (Folic Acid) 1 mg PO DAILY [facility] Last Admin: 08/17/18 08:21 Dose: 1 mg Hydrochlorothiazide (Hydrodiuril) 25 mg PO DAILY [facility] Last Admin: 08/17/18 08:21 Dose: 25 mg Hydromorphone HCl (Dilaudid) 0.5 mg IVP Q4 PRN PRN Reason: Pain, severe (8-10) Last Admin: 08/17/18 11:10 Dose: 0.5 mg Ondansetron HCl (Zofran Inj) 4 mg IVP Q6 PRN PRN Reason: Nausea/Vomiting Last Admin: 08/16/18 15:39 Dose: 4 mg Ondansetron HCl (Zofran Inj) 4 mg IVP Q6 PRN PRN Reason: Nausea/Vomiting Last Admin: 08/15/18 20:21 Dose: 4 mg Oxycodone HCl (Oxycodone Immediate Release Tab) 10 mg PO Q6 PRN PRN Reason: Pain, moderate (4-7) Last Admin: 08/17/18 08:18 Dose: 10 mg Oxycodone/Acetaminophen (Percocet 5/325 Mg Tab) 1 tab PO Q4 PRN PRN Reason: For PCEA Breakthrough Pain Stop: 08/18/18 15:48 Sennosides (Senokot Tab) 8.6 mg PO BID PRN PRN Reason: Constipation - Labs Labs: 08/17/18 05:35 08/17/18 05:35 PT 10.3 Seconds (9.8-13.1) 08/15/18 08:19 INR 0.9 08/15/18 08:19 APTT 32.6 Seconds (25.6-37.1) 08/15/18 08:19 - Extremities Exam Additional comments: +ROM ankle/toes, sesnation intact, +DP/PT pulses calves osft NT neg hoamns incision intact, scant sang drainage, no erythema, dry sterile dressing applied Assessment and Plan (1) Osteoarthritis of left hip Assessment & Plan: ortho stable for d/c to rehab cont VTE proph dressing change q1-2d left hip cont WBAT/PT/OT f/u Dr. Brock approx 10 days call for appt d/w Dr. Brock, agrees with above Status: Acute (2) Acute blood loss anemia Status: Acute
[2018-08-17] MEDS: Enoxaparin 40 mg Syringe SC SCH (15:14)
== END 2018-08-17 16:00 | DRG 470 ==
LOC: H.OPSURG 06:06 → H.MEDSURG1 16:01
PROVIDERS: ADMIT Hospitalist; ATTEND Hospitalist
PROC: 0SBB0ZZ Excision of Left Hip Joint, Open Approach (ICD-10-PCS; 2018-08-15)
PROC: 0SNB0ZZ Release Left Hip Joint, Open Approach (ICD-10-PCS; 2018-08-15)
PROC: 8E0YXBZ Computer Assisted Procedure of Lower Extremity (ICD-10-PCS; 2018-08-15)
PROC: 0SRB0JA Replacement of Left Hip Joint with Synthetic Substitute, Uncemented, Open Approach (ICD-10-PCS; principal; 2018-08-15 09:45)
DX: M16.12 Unilateral primary osteoarthritis, left hip (principal); D62 Acute posthemorrhagic anemia; I10 Essential (primary) hypertension; I34.0 Nonrheumatic mitral (valve) insufficiency; M06.9 Rheumatoid arthritis, unspecified; M65.9 Synovitis and tenosynovitis, unspecified; K29.70 Gastritis, unspecified, without bleeding; E66.01 Morbid (severe) obesity due to excess calories; Z68.31 Body mass index [BMI] 31.0-31.9, adult; Z88.0 Allergy status to penicillin

== ENCOUNTER 2018-08-18 19:37 | Observation (INO) | payer BC, MEDICARE ==
[2018-08-18 19:38] VITALS: BMI 31.0
[2018-08-18] MEDS ORDERED: Oxycodone/Acetaminophen 5/325 mg Tab PO STA (21:13)
[2018-08-18] MEDS ORDERED: Enoxaparin 40 mg Syringe SC STA (21:16)
[2018-08-18] MEDS ORDERED: Oxycodone/Acetaminophen 5/325 mg Tab ONE (21:20)
[2018-08-18 21:43] LABS: BASO # 0.1 K/uL (0.0-0.2); BASO % 0.7 % (0.0-2.0); EOS # 0.3 K/uL (0.0-0.7); EOS % 3.5 % (0.0-4.0); HEMOGLOBIN 8.9 g/dL (12.0-16.0); LYMPH # 2.6 K/uL (1.0-4.3); LYMPH % 29.4 % (20.0-40.0); MEAN CELL VOLUME 89.2 fl (81.0-99.0); MEAN CORPUSCULAR HEMOGLOBIN 30.3 pg (27.0-31.0); MEAN CORPUSCULAR HGB CONC 33.9 g/dL (33.0-37.0); MEAN PLATELET VOLUME 8.9 fl (7.2-11.7); MONO # 0.7 K/uL (0.0-0.8); MONO % 7.6 % (0.0-10.0); NEUT # 5.3 K/uL (1.8-7.0); NEUT % 58.8 % (50.0-75.0); RBC 2.94 Mil/uL (3.80-5.20); RED CELL DISTRIBUTION WIDTH 13.6 % (11.5-14.5); WHITE BLOOD COUNT 8.9 K/uL (4.8-10.8)
[2018-08-18 21:52] LABS: PARTIAL THROMBOPLASTIN TIME 27.3 Seconds (25.6-37.1)
[2018-08-18 21:58] LABS: ALB/GLOB RATIO 0.9 (1.0-2.1); ALBUMIN 3.2 g/dL (3.5-5.0); ALT/SGPT 47 U/L (9-52); AST/SGOT 77 U/L (14-36); BLOOD UREA NITROGEN 14 mg/dl (7-17); CALCIUM 9.2 mg/dL (8.4-10.2); GFR NON-AFRICAN AMERICAN > 60
--- NOTE | 2018-08-18 22:45 | CP.PCM.HP ---
History of Present Illness - History of Present Illness History of Present Illness: PMD: Salvatore Carney MD Orthopedixt: Dr Brock Chief complaint: Left hip pain The patient was seen and examined in the ED with the daughters present HPI: This is a 68 years old female with hx of HTN, Gastritis Rheumatoid Arthritis with Left Total Hip arthroplasty on 08/15/18 which is 3 days ago and was discharged to [facility] on 08/17/18. She states that her PMD does not go there so she went home today 08/18/18. She has no anticoagulant, pain medications and cannot manage activity of daily living so her PMD sent her back to the ED to be managed. She only complains of pain to the left hip and left lower Quadrant of the abdomen. No fever, cough, nausea, vomits, SOB, chest Pain, PMH: RA; HTN; Gastritis; Mitral valve rgurgitatio PSH: Appendectomy; Hysterectomy; Left Total Hip replacement SH: No illegal drug use, No Alcohol use, No smoking FH: States: No Known Family Hx Medications: Reviewed Present on Admission - Present on Admission Any Indicators Present on Admission: No History of DVT/PE: No History of Uncontrolled Diabetes: No Urinary Catheter: No Decubitus Ulcer Present: No Review of Systems - Constitutional Constitutional: absent: Chills, Fatigue, Fever, Headache, Weight Gain - EENT Eyes: Requires Corrective Lenses. absent: Blurred Vision, Diplopia, Floaters Ears: absent: Decreased Hearing, Ear Discharge, Tinnitus Nose/Mouth/Throat: absent: Epistaxis, Nasal Congestion, Nasal Discharge, Sinus Pain, Sinus Pressure - Cardiovascular Cardiovascular: absent: Chest Pain, Dyspnea, Edema - Respiratory Respiratory: absent: Cough, Dyspnea, Snoring, Stridor - Gastrointestinal Gastrointestinal: Abdominal Pain. absent: Constipation, Diarrhea Additional comments: Mild LLQ abdominal paind - Genitourinary Genitourinary: absent: Dysuria, Flank Pain, Urinary Frequency - Musculoskeletal Additional comments: Left hip surgical region with mild post surgical pain. - Integumentary Integumentary: absent: Pruritus, Rash, Skin Ulcer, Sores, Swelling - Neurological Neurological: absent: Confusion, Focal Weakness, Loss of Vision, Tremor, Weakness - Psychiatric Psychiatric: absent: Anxiety, Depression, Panic Attacks - Endocrine Endocrine: absent: Palpitations, Polydipsia, Polyphagia, Polyuria - Hematologic/Lymphatic Hematologic: absent: Easy Bleeding, Easy Bruising Past Patient History - Past Medical History & Family History Past Medical History?: Yes - Past Social History Smoking Status: Never Smoked Chewing Tobacco Use: No Cigar Use: No Alcohol: None Drugs: Denies - CARDIAC Hx Hypertension: Yes - PULMONARY Hx Respiratory Disorders: No - NEUROLOGICAL Hx Neurological Disorder: No - HEENT Hx HEENT Problems: No - RENAL Hx Chronic Kidney Disease: No - ENDOCRINE/METABOLIC Hx Endocrine Disorders: No - HEMATOLOGICAL/ONCOLOGICAL Hx Blood Disorders: No - INTEGUMENTARY Hx Dermatological Problems: No - MUSCULOSKELETAL/RHEUMATOLOGICAL Hx Rheumatoid Arthritis: Yes - GASTROINTESTINAL Hx Gastrointestinal Disorders: Yes Hx Gastritis: Yes Hx Ulcer: Yes (GASTRIC) - GENITOURINARY/GYNECOLOGICAL Hx Genitourinary Disorders: No - PSYCHIATRIC Hx Psychophysiologic Disorder: No Hx Substance Use: No - SURGICAL HISTORY Hx Surgeries: Yes Hx Appendectomy: Yes Hx Hysterectomy: Yes Hx Joint Replacement: Yes (Lt Hip) Other/Comment: Uterine sx - ANESTHESIA Hx Anesthesia: Yes Hx Anesthesia Reactions: No Hx Malignant Hyperthermia: No Meds Allergies/Adverse Reactions: Allergies Allergy/AdvReac Type Severity Reaction Status Date / Time Penicillins Allergy RASH Verified 08/18/18 20:21 Physical Exam - Constitutional Appears: No Acute Distress - Head Exam Head Exam: ATRAUMATIC, NORMAL INSPECTION, NORMOCEPHALIC - Eye Exam Eye Exam: EOMI, Normal appearance Pupil Exam: NORMAL ACCOMODATION, PERRL - ENT Exam ENT Exam: Mucous Membranes Moist, Normal Exam, Normal External Ear Exam - Neck Exam Neck exam: Positive for: Full Rom, Normal Inspection. Negative for: Lymphadenopathy, Tenderness - Respiratory Exam Respiratory Exam: Clear to Auscultation Bilateral. absent: Rales, Rhonchi, Wheezes - Cardiovascular Exam Cardiovascular Exam: REGULAR RHYTHM, RRR, +S1, +S2. absent: Gallop, JVD - GI/Abdominal Exam GI & Abdominal Exam: Normal Bowel Sounds, Soft. absent: Mass, Organomegaly, Tenderness - Rectal Exam Rectal Exam: Deferred - Extremities Exam Additional comments: Pain to the left hip on flexion or rotation. Post surgical dressing at lateral proximal left hip, clean and dry. - Back Exam Back exam: NORMAL INSPECTION. absent: CVA tenderness (L), CVA tenderness (R) - Neurological Exam Neurological exam: Alert, CN II-XII Intact, Oriented x3, Reflexes Normal - Psychiatric Exam Psychiatric exam: Normal Affect, Normal Mood - Skin Skin Exam: Dry, Intact, Normal Color, Warm Results - Vital Signs Recent Vital Signs: Last Vital Signs Temp 98.3 F 08/18/18 20:21 Pulse 97 H 08/18/18 20:21 Resp 18 08/18/18 20:21 BP 136/76 08/18/18 20:21 Pulse Ox 97 08/18/18 20:21 - Labs Result Diagrams: 08/18/18 21:25 08/18/18 21:25 Labs: Laboratory Results - last 24 hr 08/18/18 08/18/18 08/18/18 21:25 21:25 21:25 WBC 8.9 RBC 2.94 L Hgb 8.9 L Hct 26.2 L MCV 89.2 MCH 30.3 MCHC 33.9 RDW 13.6 Plt Count 195 MPV 8.9 Neut % (Auto) 58.8 Lymph % (Auto) 29.4 [place] % (Auto) 7.6 Eos % (Auto) 3.5 Baso % (Auto) 0.7 Neut # (Auto) 5.3 Lymph # (Auto) 2.6 [place] # (Auto) 0.7 Eos # (Auto) 0.3 Baso # (Auto) 0.1 PT 11.0 INR 1.0 APTT 27.3 Sodium 138 Potassium 3.6 Chloride 102 Carbon Dioxide 34 H Anion Gap 6 L BUN 14 Creatinine 0.9 Est GFR ( Amer) > 60 Est GFR (Non-Af Amer) > 60 Random Glucose 106 H Calcium 9.2 Total Bilirubin 0.4 AST 77 H ALT 47 Alkaline Phosphatase 85 Total Protein 6.7 Albumin 3.2 L Globulin 3.5 Albumin/Globulin Ratio 0.9 L - Imaging and Cardiology X Ray of Left Hip Additional comment: Prosthesis in anatomic position. No deformity Assessment & Plan - Assessment and Plan (Free Text) Assessment: #. Left Hip pain s/p Left THR #. Anemia #. Gastritis #. Rheumatoid Arthritis Plan: 68 years old female with hx of HTN, Gastritis Rheumatoid Arthritis with Left Total Hip arthroplasty on 08/15/18 and was discharged to [facility] on 08/17/18. She states that her PMD does not go there so she went home on . With no anticoagulant, pain medications and cannot manage activity of daily living, her PMD sent her back to the ED to be managed. She complains of pain to the left hip and left lower Quadrant of the abdomen. #. Left Hip pain s/p Left THR - consult Dr Brock Orthopedic - Pain management - OT/PT - Consult director client services for placement #. Anemia - Follow HB #. Gastritis - Pepcid #. Rheumatoid Arthritis - Pain management #. DVT prophylaxis with Lovenox #. Code Status: full - - Date & Time Date: 08/18/18 Time: 22:45
[2018-08-18] MEDS ORDERED: Oxycodone/Acetaminophen 5/325 mg Tab PO PRN ×3 (23:53→23:55)
[2018-08-19] MEDS ORDERED: Oxycodone/Acetaminophen 5/325 mg Tab PO PRN (00:48)
[2018-08-19] MEDS: Oxycodone/Acetaminophen 5/325 mg Tab PO PRN ×4 (00:57→21:02)
--- NOTE | 2018-08-19 08:16 | RAD ---
Date of service: 08/18/2018 HISTORY: pain, replacement 08/15 COMPARISON: No prior FINDINGS: BONES: Status post left hip arthroplasty with soft tissue postoperative changes. JOINTS: Normal. No osteoarthritis. SOFT TISSUE: Normal. OTHER FINDINGS: None . IMPRESSION: Status post left hip arthroplasty with soft tissue postoperative changes.
[2018-08-19] MEDS: Cholecalciferol 1,000 INTLU TAB PO SCH (08:30)
[2018-08-19] MEDS: Enoxaparin 40 mg Syringe SC SCH (08:30)
[2018-08-19] MEDS ORDERED: Pneumococcal 23-Valent Vaccine IM ONE (09:00)
--- NOTE | 2018-08-19 11:34 | CP.PCM.CON ---
History of Present Illness - History of Present Illness History of Present Illness: ID; 68 yo female well known to my practice CC: pt presents to ER as a complex problem in pain mgmt; complex in the sense that the pt had signed out AMA from [facility] and didnot get d/madeleine with analgesic pain meds. Pt agreed to [facility], but then was unhappy, and signed otu AMA. Pt called Dr Carney, and then pt represented to ER at [facility]. Pt admitted for pain mgmt. Pt examined and Xrays reveal a perfect hip replaceemnt. THERE IS NO READMISSION SECONDARY TO THE OPERATION. IT IS A DISPOSITION AND PAIN MGMT ADMIT- because pt did not get pain meds since she left AMA Past Patient History - Past Medical History & Family History Past Medical History?: Yes - Past Social History Smoking Status: Never Smoked Chewing Tobacco Use: No Cigar Use: No Alcohol: None Drugs: Denies - CARDIAC Hx Hypertension: Yes - PULMONARY Hx Respiratory Disorders: No - NEUROLOGICAL Hx Neurological Disorder: No - HEENT Hx HEENT Problems: No - RENAL Hx Chronic Kidney Disease: No - ENDOCRINE/METABOLIC Hx Endocrine Disorders: No - HEMATOLOGICAL/ONCOLOGICAL Hx Blood Disorders: No - INTEGUMENTARY Hx Dermatological Problems: No - MUSCULOSKELETAL/RHEUMATOLOGICAL Hx Rheumatoid Arthritis: Yes - GASTROINTESTINAL Hx Gastrointestinal Disorders: Yes Hx Gastritis: Yes Hx Ulcer: Yes (GASTRIC) - GENITOURINARY/GYNECOLOGICAL Hx Genitourinary Disorders: No - PSYCHIATRIC Hx Psychophysiologic Disorder: No Hx Substance Use: No - SURGICAL HISTORY Hx Surgeries: Yes Hx Appendectomy: Yes Hx Hysterectomy: Yes Hx Joint Replacement: Yes (Lt Hip) Other/Comment: Uterine sx - ANESTHESIA Hx Anesthesia: Yes Hx Anesthesia Reactions: No Hx Malignant Hyperthermia: No Meds Allergies/Adverse Reactions: Allergies Allergy/AdvReac Type Severity Reaction Status Date / Time Penicillins Allergy RASH Verified 08/18/18 20:21 - Medications Medications: Current Medications Cholecalciferol (Vitamin D) 5,000 intlu PO DAILY [facility] Last Admin: 08/19/18 08:30 Dose: 5,000 intlu Docusate Sodium (Colace) 100 mg PO BID [facility] Last Admin: 08/19/18 08:28 Dose: 100 mg Enoxaparin Sodium (Lovenox) 40 mg SC DAILY [facility] PRN Reason: Protocol Last Admin: 08/19/18 08:30 Dose: 40 mg Ferrous Sulfate (Feosol) 325 mg PO BID [facility] Last Admin: 08/19/18 08:30 Dose: 325 mg Oxycodone/Acetaminophen (Percocet 5/325 Mg Tab) 2 tab PO Q4 PRN PRN Reason: Pain, severe (8-10) Stop: 08/22/18 01:01 Last Admin: 08/19/18 08:29 Dose: 2 tab Oxycodone/Acetaminophen (Percocet 5/325 Mg Tab) 1 tab PO Q4 PRN PRN Reason: Pain, moderate (4-7) Stop: 08/22/18 01:01 Physical Exam - Additional Findings Additional findings: Physical exam systemic exam no evidence for systemic sepsis Musculoskekltal stance/gait- defrred L thigh soft- no evidence for hematioma/no drainage/minimsl post op soreness N/V intact Results - Vital Signs Recent Vital Signs: Last Vital Signs Temp 97.1 F L 08/19/18 08:36 Pulse 92 H 08/19/18 08:36 Resp 20 08/19/18 08:36 BP 136/72 08/19/18 08:36 Pulse Ox 98 08/19/18 08:36 - Labs Result Diagrams: 08/18/18 21:25 08/18/18 21:25 Labs: Laboratory Results - last 24 hr 08/18/18 08/18/18 08/18/18 21:25 21:25 21:25 WBC 8.9 RBC 2.94 L Hgb 8.9 L Hct 26.2 L MCV 89.2 MCH 30.3 MCHC 33.9 RDW 13.6 Plt Count 195 MPV 8.9 Neut % (Auto) 58.8 Lymph % (Auto) 29.4 [place] % (Auto) 7.6 Eos % (Auto) 3.5 Baso % (Auto) 0.7 Neut # (Auto) 5.3 Lymph # (Auto) 2.6 [place] # (Auto) 0.7 Eos # (Auto) 0.3 Baso # (Auto) 0.1 PT 11.0 INR 1.0 APTT 27.3 Sodium 138 Potassium 3.6 Chloride 102 Carbon Dioxide 34 H Anion Gap 6 L BUN 14 Creatinine 0.9 Est GFR ( Amer) > 60 Est GFR (Non-Af Amer) > 60 Random Glucose 106 H Calcium 9.2 Total Bilirubin 0.4 AST 77 H ALT 47 Alkaline Phosphatase 85 Total Protein 6.7 Albumin 3.2 L Globulin 3.5 Albumin/Globulin Ratio 0.9 L - Impressions Impression: Xrays- reveal excellemt position of construct Assessment & Plan - Assessment and Plan (Free Text) Assessment: A- 68 yo female s/p successful THR readmitted as dispositon and pain mgmt problem P- call anestjhnesia for pain mgmt D/C to re adrian Full weight bearing with cruthes/walker
--- NOTE | 2018-08-19 14:36 | CP.PCM.PN ---
<Nba Weston - Last Filed: 08/19/18 14:43> Subjective - Date & Time of Evaluation Date of Evaluation: 08/19/18 Time of Evaluation: 02:20 - Subjective Subjective: Patient seen at bedside in not acute distress, smiling and states that she feels "much better" pain is controlled with current meds. Patient is very motivated to start PT and wants to stay mobile. C/O left leg swelling but is by Dr Brock's visit this morning Objective - Vital Signs/Intake and Output Vital Signs (last 24 hours): Temp Pulse Resp BP Pulse Ox 97.1 F L 92 H 20 136/72 98 08/19/18 08:36 08/19/18 08:36 08/19/18 08:36 08/19/18 08:36 08/19/18 08:36 - Medications Medications: Current Medications Cholecalciferol (Vitamin D) 5,000 intlu PO DAILY [facility] Last Admin: 08/19/18 08:30 Dose: 5,000 intlu Docusate Sodium (Colace) 100 mg PO BID [facility] Last Admin: 08/19/18 08:28 Dose: 100 mg Enoxaparin Sodium (Lovenox) 40 mg SC DAILY [facility] PRN Reason: Protocol Last Admin: 08/19/18 08:30 Dose: 40 mg Ferrous Sulfate (Feosol) 325 mg PO BID [facility] Last Admin: 08/19/18 08:30 Dose: 325 mg Oxycodone/Acetaminophen (Percocet 5/325 Mg Tab) 2 tab PO Q4 PRN PRN Reason: Pain, severe (8-10) Stop: 08/22/18 01:01 Last Admin: 08/19/18 14:24 Dose: 2 tab Oxycodone/Acetaminophen (Percocet 5/325 Mg Tab) 1 tab PO Q4 PRN PRN Reason: Pain, moderate (4-7) Stop: 08/22/18 01:01 - Labs Labs: 08/18/18 21:25 08/18/18 21:25 PT 11.0 Seconds (9.8-13.1) 08/18/18 21:25 INR 1.0 08/18/18 21:25 APTT 27.3 Seconds (25.6-37.1) 08/18/18 21:25 - Constitutional Appears: Non-toxic - Eye Exam Eye Exam: EOMI Pupil Exam: PERRL - Respiratory Exam Respiratory Exam: NORMAL BREATHING PATTERN. absent: Rhonchi, Wheezes, Respiratory Distress - Cardiovascular Exam Cardiovascular Exam: REGULAR RHYTHM, +S1, +S2. absent: Gallop - GI/Abdominal Exam GI & Abdominal Exam: Soft, Normal Bowel Sounds. absent: Distended, Rebound - Extremities Exam Extremities Exam: Joint Swelling (Left thigh swelling. No erythema), Normal Capillary Refill. absent: Full ROM - Neurological Exam Neurological Exam: Alert, Awake, Oriented x3 - Psychiatric Exam Psychiatric exam: Normal Affect, Normal Mood - Skin Skin Exam: Warm Assessment and Plan - Assessment and Plan (Free Text) Assessment: 68 years old female with hx of HTN, Gastritis Rheumatoid Arthritis with Left Total Hip arthroplasty on 08/15/18 and was discharged to [facility] on 08/17/18 and admitted Yesterday for uncontrolled pain Left Hip pain s/p Left THR - Improved - consult Dr Brock Orthopedic appreciated - Pain management c/w Percocet for now - OT/PT - Consult director of radio services for placement Anemia - hgb 8.9 Rheumatoid Arthritis - Pain management DVT prophylaxis with Lovenox <Zaki Ventura D - Last Filed: 08/19/18 16:31> Objective - Vital Signs/Intake and Output Vital Signs (last 24 hours): Temp Pulse Resp BP Pulse Ox 97.1 F L 92 H 20 136/72 98 08/19/18 08:36 08/19/18 08:36 08/19/18 08:36 08/19/18 08:36 08/19/18 08:36 - Medications Medications: Current Medications Cholecalciferol (Vitamin D) 5,000 intlu PO DAILY [facility] Last Admin: 08/19/18 08:30 Dose: 5,000 intlu Docusate Sodium (Colace) 100 mg PO BID [facility] Last Admin: 08/19/18 08:28 Dose: 100 mg Enoxaparin Sodium (Lovenox) 40 mg SC DAILY [facility] PRN Reason: Protocol Last Admin: 08/19/18 08:30 Dose: 40 mg Ferrous Sulfate (Feosol) 325 mg PO BID [facility] Last Admin: 08/19/18 08:30 Dose: 325 mg Oxycodone/Acetaminophen (Percocet 5/325 Mg Tab) 2 tab PO Q4 PRN PRN Reason: Pain, severe (8-10) Stop: 08/22/18 01:01 Last Admin: 08/19/18 14:24 Dose: 2 tab Oxycodone/Acetaminophen (Percocet 5/325 Mg Tab) 1 tab PO Q4 PRN PRN Reason: Pain, moderate (4-7) Stop: 08/22/18 01:01 - Labs Labs: 08/18/18 21:25 08/18/18 21:25 PT 11.0 Seconds (9.8-13.1) 08/18/18 21:25 INR 1.0 08/18/18 21:25 APTT 27.3 Seconds (25.6-37.1) 08/18/18 21:25 Attending/Attestation - Attestation I have personally seen and examined this patient.: Yes I have fully participated in the care of the patient.: Yes I have reviewed all pertinent clinical information, including history, physical exam and plan: Yes
[2018-08-20] MEDS: Oxycodone/Acetaminophen 5/325 mg Tab PO PRN (02:45)
--- NOTE | 2018-08-20 08:13 | CP.PCM.PN ---
Subjective - Date & Time of Evaluation Date of Evaluation: 08/20/18 Time of Evaluation: 07:45 - Subjective Subjective: Patient had signed out of AMA due to the condition of the facility, but plans to go to another facility today. Pain is well controlled on the Percocet, but even 10mg only lasts about 4 hours. She denies side effects from the medications and denies previous opioid use prior to the surgery. Objective - Vital Signs/Intake and Output Vital Signs (last 24 hours): Temp Pulse Resp BP Pulse Ox 98.4 F 88 18 98/64 L 97 08/20/18 00:06 08/20/18 00:06 08/20/18 00:06 08/20/18 00:06 08/20/18 00:06 - Medications Medications: Current Medications Cholecalciferol (Vitamin D) 5,000 intlu PO DAILY [facility] Last Admin: 08/19/18 08:30 Dose: 5,000 intlu Docusate Sodium (Colace) 100 mg PO BID [facility] Last Admin: 08/19/18 17:03 Dose: 100 mg Enoxaparin Sodium (Lovenox) 40 mg SC DAILY [facility] PRN Reason: Protocol Last Admin: 08/19/18 08:30 Dose: 40 mg Ferrous Sulfate (Feosol) 325 mg PO BID [facility] Last Admin: 08/19/18 17:03 Dose: 325 mg Oxycodone HCl (Oxycodone Immediate Release Tab) 10 mg PO Q4 PRN PRN Reason: Pain, severe (8-10) - Labs Labs: 08/18/18 21:25 08/18/18 21:25 PT 11.0 Seconds (9.8-13.1) 08/18/18 21:25 INR 1.0 08/18/18 21:25 APTT 27.3 Seconds (25.6-37.1) 08/18/18 21:25 Assessment and Plan (1) Hip pain Assessment & Plan: 68 yo woman s/p THR. For discharge to rehab today. Patient needs about 10mg of Oxycodone q4h for pain control and PT. Percocet 10/325mg is not on formulary here. - d/c Percocet 5/325mg, 2 tablets, q4h PRN - start Oxycodone 10mg q4h PRN - for transfer to rehab, patient can be placed on Percocet 10/325mg q4h PRN Status: Acute
[2018-08-20] MEDS: oxyCODONE 5 mg Immediate Release Tab PO PRN ×4 (08:20→23:05)
[2018-08-20] MEDS: Enoxaparin 40 mg Syringe SC SCH (08:21)
[2018-08-20] MEDS: Cholecalciferol 1,000 INTLU TAB PO SCH (08:21)
--- NOTE | 2018-08-20 09:38 | CP.PCM.DIS ---
<Jared Brown - Last Filed: 08/20/18 11:11> Provider - Provider Date of Admission: 08/18/18 22:53 Attending physician: Khoa Ceron Time Spent in preparation of Discharge (in minutes): 20 Diagnosis - Discharge Diagnosis (1) Pain management Status: Acute (2) Anemia Status: Chronic Hospital Course - Lab Results Lab Results: Most Recent Lab Values WBC 8.9 K/uL (4.8-10.8) 08/18/18 21: RBC 2.94 Mil/uL (3.80-5.20) L 08/18/18 21: Hgb 8.9 g/dL (12.0-16.0) L 08/18/18: Hct 26.2 % (34.0-47.0) L 08/18/18: MCV 89.2 fl (81.0-99.0) 08/18/18: MCH 30.3 pg (27.0-31.0) 08/18/18: MCHC 33.9 g/dL (33.0-37.0) 08/18/18 21: RDW 13.6 % (11.5-14.5) 08/18/18: Plt Count 195 K/uL (130-400) 08/18/18 21: MPV 8.9 fl (7.2-11.7) 08/18/18 21:25 Neut % (Auto) 58.8 % (50.0-75.0) 08/18/18: Lymph % (Auto) 29.4 % (20.0-40.0) 08/18/18 21: [place] % (Auto) 7.6 % (0.0-10.0) 08/18/18: Eos % (Auto) 3.5 % (0.0-4.0) 08/18/18: Baso % (Auto) 0.7 % (0.0-2.0) 08/18/18: Neut # (Auto) 5.3 K/uL (1.8-7.0) 08/18/18: Lymph # (Auto) 2.6 K/uL (1.0-4.3) 08/18/18 21:25 [place] # (Auto) 0.7 K/uL (0.0-0.8) 08/18/18 21:25 Eos # (Auto) 0.3 K/uL (0.0-0.7) 08/18/18 21:25 Baso # (Auto) 0.1 K/uL (0.0-0.2) 08/18/18 21:25 PT 11.0 Seconds (9.8-13.1) 08/18/18 21:25 INR 1.0 08/18/18 21:25 APTT 27.3 Seconds (25.6-37.1) 08/18/18 21:25 Sodium 138 mmol/l (132-148) 08/18/18 21:25 Potassium 3.6 MMOL/L (3.6-5.0) 08/18/18 21:25 Chloride 102 mmol/L (98-107) 08/18/18 21:25 Carbon Dioxide 34 mmol/L (22-30) H 08/18/18 21:25 Anion Gap 6 (10-20) L 08/18/18 21:25 BUN 14 mg/dl (7-17) 08/18/18 21:25 Creatinine 0.9 mg/dl (0.7-1.2) 08/18/18 21:25 Est GFR ( Amer) > 60 08/18/18 21:25 Est GFR (Non-Af Amer) > 60 08/18/18 21:25 Random Glucose 106 mg/dL (65-105) H 08/18/18 21:25 Calcium 9.2 mg/dL (8.4-10.2) 08/18/18 21:25 Total Bilirubin 0.4 mg/dl (0.2-1.3) 08/18/18 21:25 AST 77 U/L (14-36) H 08/18/18 21:25 ALT 47 U/L (9-52) 08/18/18 21:25 Alkaline Phosphatase 85 U/L (38-126) 08/18/18 21:25 Total Protein 6.7 G/DL (6.3-8.2) 08/18/18 21:25 Albumin 3.2 g/dL (3.5-5.0) L 08/18/18 21:25 Globulin 3.5 gm/dL (2.2-3.9) 08/18/18 21:25 Albumin/Globulin Ratio 0.9 (1.0-2.1) L 08/18/18 21:25 - Hospital Course Hospital Course: Pt is a 68 yo Female with PMH of HTN, gastritis, RH arthritis with mitral regurgitation. S/P Elective Total LEFT hip replacement due to failure of medically management. Was admitted for surgery to be performed on 08/16/18, There was no complication during surgery, except mild anemia due to blood loss in surgery. Pt Was discharged to rehab, but did not like the Place and left AMA , Pt came back to hospital. Pt was admitted for pain management. Pt is stable, vitals are stable, pain is controlled with medication. Pt Will be discharged to TCU. Pt denies any chest pain sob, dizziness, abd pain, diarrhea, constipation, dysuria or polyuria . All chart and clinical data reviewed. Pt is comfortable to Go for TCU. Pt vitals are stable, LAbs are WNL, Anemia is being treated with ferrous sulfate , HTN with her home medication Pt is surgically and medically clear. Medicine team agree. Will discharge Pt to TCU. PT concern were reviewed and addressed, Pt question were answered. Pt will be discharge to TCU. Discharge Exam - Head Exam Head Exam: ATRAUMATIC, NORMAL INSPECTION, NORMOCEPHALIC - Eye Exam Eye Exam: EOMI, Normal appearance, PERRL Pupil Exam: NORMAL ACCOMODATION, PERRL - Respiratory Exam Respiratory Exam: Clear to PA & Lateral, NORMAL BREATHING PATTERN, UNREMARKABLE - Cardiovascular Exam Cardiovascular Exam: REGULAR RHYTHM, +S1, +S2 - GI/Abdominal Exam GI & Abdominal Exam: Normal Bowel Sounds, Unremarkable - Back Exam Back exam: FULL ROM. absent: CVA tenderness (L), CVA tenderness (R) Additional comments: surgical Gauze noted on LEFT leg - Neurological Exam Neurological exam: Alert, Oriented x3 - Psychiatric Exam Psychiatric exam: Normal Affect, Normal Mood - Skin Skin Exam: Dry, Intact, Normal Color, Warm Discharge Plan - Discharge Medications Prescriptions: oxyCODONE/Acetaminophen [Percocet 5/325 mg Tab] 2 ea PO Q4 PRN #30 tab PRN Reason: Pain, Moderate (4-7) - Follow Up Plan Condition: STABLE Disposition: REHAB FACILITY/REHAB UNIT Patient education suggested?: Yes <Zaki Ventura - Last Filed: 08/20/18 12:23> Provider - Provider Date of Admission: 08/18/18 22:53 Attending physician: Khoa Ceron [facility] Course - Lab Results Lab Results: Most Recent Lab Values WBC 8.9 K/uL (4.8-10.8) 08/18/18 21: RBC 2.94 Mil/uL (3.80-5.20) L 08/18/18 21: Hgb 8.9 g/dL (12.0-16.0) L 08/18/18 21: Hct 26.2 % (34.0-47.0) L 08/18/18: MCV 89.2 fl (81.0-99.0) 08/18/18: MCH 30.3 pg (27.0-31.0) 08/18/18: MCHC 33.9 g/dL (33.0-37.0) 08/18/18: RDW 13.6 % (11.5-14.5) 08/18/18: Plt Count 195 K/uL (130-400) 08/18/18 21: MPV 8.9 fl (7.2-11.7) 08/18/18 21: Neut % (Auto) 58.8 % (50.0-75.0) 08/18/18: Lymph % (Auto) 29.4 % (20.0-40.0) 08/18/18: [place] % (Auto) 7.6 % (0.0-10.0) 08/18/18: Eos % (Auto) 3.5 % (0.0-4.0) 08/18/18: Baso % (Auto) 0.7 % (0.0-2.0) 08/18/18: Neut # (Auto) 5.3 K/uL (1.8-7.0) 08/18/18: Lymph # (Auto) 2.6 K/uL (1.0-4.3) 08/18/18: [place] # (Auto) 0.7 K/uL (0.0-0.8) 08/18/18 21:25 Eos # (Auto) 0.3 K/uL (0.0-0.7) 08/18/18 21:25 Baso # (Auto) 0.1 K/uL (0.0-0.2) 08/18/18 21:25 PT 11.0 Seconds (9.8-13.1) 08/18/18 21:25 INR 1.0 08/18/18 21:25 APTT 27.3 Seconds (25.6-37.1) 08/18/18 21:25 Sodium 138 mmol/l (132-148) 08/18/18 21:25 Potassium 3.6 MMOL/L (3.6-5.0) 08/18/18 21:25 Chloride 102 mmol/L (98-107) 08/18/18 21:25 Carbon Dioxide 34 mmol/L (22-30) H 08/18/18 21:25 Anion Gap 6 (10-20) L 08/18/18 21:25 BUN 14 mg/dl (7-17) 08/18/18 21:25 Creatinine 0.9 mg/dl (0.7-1.2) 08/18/18 21:25 Est GFR ( Amer) > 60 08/18/18 21:25 Est GFR (Non-Af Amer) > 60 08/18/18 21:25 Random Glucose 106 mg/dL (65-105) H 08/18/18 21:25 Calcium 9.2 mg/dL (8.4-10.2) 08/18/18 21:25 Total Bilirubin 0.4 mg/dl (0.2-1.3) 08/18/18 21:25 AST 77 U/L (14-36) H 08/18/18 21:25 ALT 47 U/L (9-52) 08/18/18 21:25 Alkaline Phosphatase 85 U/L (38-126) 08/18/18 21:25 Total Protein 6.7 G/DL (6.3-8.2) 08/18/18 21:25 Albumin 3.2 g/dL (3.5-5.0) L 08/18/18 21:25 Globulin 3.5 gm/dL (2.2-3.9) 08/18/18 21:25 Albumin/Globulin Ratio 0.9 (1.0-2.1) L 08/18/18 21:25 Attending/Attestation - Attestation I have personally seen and examined this patient.: Yes I have fully participated in the care of the patient.: Yes I have reviewed all pertinent clinical information, including history, physical exam and plan: Yes
--- NOTE | 2018-08-20 12:17 | CP.PCM.PN ---
Subjective - Date & Time of Evaluation Date of Evaluation: 08/20/18 Time of Evaluation: 08:00 - Subjective Subjective: Patient seen and examined at bedside comfortable. Pain is well controlled, 5- 6/10 currently. No new complaints. To be transferred to TCU. Denies CP/SOB/N/V/D/fever. Objective - Vital Signs/Intake and Output Vital Signs (last 24 hours): Temp Pulse Resp BP Pulse Ox 97.6 F 93 H 18 158/80 H 99 08/20/18 08:19 08/20/18 08:19 08/20/18 08:19 08/20/18 08:19 08/20/18 08:19 - Medications Medications: Current Medications Cholecalciferol (Vitamin D) 5,000 intlu PO DAILY [facility] Last Admin: 08/20/18 08:21 Dose: 5,000 intlu Docusate Sodium (Colace) 100 mg PO BID [facility] Last Admin: 08/20/18 08:20 Dose: 100 mg Enoxaparin Sodium (Lovenox) 40 mg SC DAILY [facility] PRN Reason: Protocol Last Admin: 08/20/18 08:21 Dose: 40 mg Ferrous Sulfate (Feosol) 325 mg PO BID [facility] Last Admin: 08/20/18 08:21 Dose: 325 mg Oxycodone HCl (Oxycodone Immediate Release Tab) 10 mg PO Q4 PRN PRN Reason: Pain, severe (8-10) Last Admin: 08/20/18 08:20 Dose: 10 mg - Labs Labs: 08/18/18 21:25 08/18/18 21:25 PT 11.0 Seconds (9.8-13.1) 08/18/18 21:25 INR 1.0 08/18/18 21:25 APTT 27.3 Seconds (25.6-37.1) 08/18/18 21:25 - Extremities Exam Additional comments: L hip: Dressings CDI, dressings removed revealing surgical wound CDI with vianney, portal sites CDI with sutures mild diffuse swelling sensation intact SP/DP/TN motor intact EHL/FHL/TA/G/HS/Q pedal pulses intact comps soft NT b/l Assessment and Plan (1) Status post left hip replacement Assessment & Plan: POD# 5 s/p R TITO doing well -admitted for placement issues, was unhappy with previous rehab, will be to transferred to TCU tomorrow -Dressings changed -PT/OT FWB -DVT ppx -above d/w Dr. Brock in agreement Status: Acute
--- NOTE | 2018-08-20 16:38 | CP.PCM.PN ---
<Jared Brown - Last Filed: 08/20/18 16:38> Subjective - Date & Time of Evaluation Date of Evaluation: 08/20/18 Time of Evaluation: 16:36 - Subjective Subjective: PT seen and examined had no complain was ready to be D/C Pt supposed to be D/C to TCU. Due to insurance did not authorized. Pt will stay on the floor today. Objective - Vital Signs/Intake and Output Vital Signs (last 24 hours): Temp Pulse Resp BP Pulse Ox 98.9 F 94 H 20 122/78 99 08/20/18 16:09 08/20/18 16:09 08/20/18 16:09 08/20/18 16:08/20/18 16:09 - Medications Medications: Current Medications Cholecalciferol (Vitamin D) 5,000 intlu PO DAILY [facility] Last Admin: 08/20/18 08:21 Dose: 5,000 intlu Docusate Sodium (Colace) 100 mg PO BID [facility] Last Admin: 08/20/18 16:26 Dose: 100 mg Enoxaparin Sodium (Lovenox) 40 mg SC DAILY [facility] PRN Reason: Protocol Last Admin: 08/20/18 08:21 Dose: 40 mg Ferrous Sulfate (Feosol) 325 mg PO BID [facility] Last Admin: 08/20/18 16:26 Dose: 325 mg Oxycodone HCl (Oxycodone Immediate Release Tab) 10 mg PO Q4 PRN PRN Reason: Pain, severe (8-10) Last Admin: 08/20/18 15:25 Dose: 10 mg - Labs Labs: 08/18/18 21:25 08/18/18 21:25 PT 11.0 Seconds (9.8-13.1) 08/18/18 21:25 INR 1.0 08/18/18 21:25 APTT 27.3 Seconds (25.6-37.1) 08/18/18 21:25 - Constitutional Appears: Non-toxic, No Acute Distress - Head Exam Head Exam: ATRAUMATIC, NORMAL INSPECTION, NORMOCEPHALIC - Eye Exam Eye Exam: EOMI, Normal appearance, PERRL Pupil Exam: NORMAL ACCOMODATION, PERRL - ENT Exam ENT Exam: Mucous Membranes Moist, Normal Exam - Neck Exam Neck Exam: Full ROM, Normal Inspection - Respiratory Exam Respiratory Exam: Clear to Ausculation Bilateral, NORMAL BREATHING PATTERN - Cardiovascular Exam Cardiovascular Exam: REGULAR RHYTHM, +S1, +S2 - GI/Abdominal Exam GI & Abdominal Exam: Soft, Normal Bowel Sounds - Back Exam Back Exam: NORMAL INSPECTION - Neurological Exam Neurological Exam: Alert, Awake, Oriented x3 Assessment and Plan (1) Pain management Status: Acute (2) Anemia Status: Chronic - Assessment and Plan (Free Text) Assessment: 68 years old female with hx of HTN, Gastritis Rheumatoid Arthritis with Left Total Hip arthroplasty on 08/15/18 and was discharged to [facility] on 08/17/18 and admitted Yesterday for uncontrolled pain Left Hip pain s/p Left THR Discharge To TCU will follow up with insurance Anemia Continue medication Rheumatoid Arthritis Continue pain medication DVT prophylaxis with Lovenox <Zaki Ventura D - Last Filed: 08/20/18 19:20> Objective - Vital Signs/Intake and Output Vital Signs (last 24 hours): Temp Pulse Resp BP Pulse Ox 98.9 F 94 H 20 122/78 99 08/20/18 16:09 08/20/18 16:09 08/20/18 16:09 08/20/18 16:09 08/20/18 16:09 - Medications Medications: Current Medications Cholecalciferol (Vitamin D) 5,000 intlu PO DAILY [facility] Last Admin: 08/20/18 08:21 Dose: 5,000 intlu Docusate Sodium (Colace) 100 mg PO BID [facility] Last Admin: 08/20/18 16:26 Dose: 100 mg Enoxaparin Sodium (Lovenox) 40 mg SC DAILY [facility] PRN Reason: Protocol Last Admin: 08/20/18 08:21 Dose: 40 mg Ferrous Sulfate (Feosol) 325 mg PO BID [facility] Last Admin: 08/20/18 16:26 Dose: 325 mg Oxycodone HCl (Oxycodone Immediate Release Tab) 10 mg PO Q4 PRN PRN Reason: Pain, severe (8-10) Last Admin: 08/20/18 19:01 Dose: 10 mg - Labs Labs: 08/18/18 21:25 08/18/18 21:25 PT 11.0 Seconds (9.8-13.1) 08/18/18 21:25 INR 1.0 08/18/18 21:25 APTT 27.3 Seconds (25.6-37.1) 08/18/18 21:25 Attending/Attestation - Attestation I have personally seen and examined this patient.: Yes I have fully participated in the care of the patient.: Yes I have reviewed all pertinent clinical information, including history, physical exam and plan: Yes
[2018-08-20 23:40] VITALS: O2SAT 98
[2018-08-21 07:59] VITALS: BP 119/68; PULSE 97; RESP 18; TEMP 98.2
[2018-08-21] MEDS: Enoxaparin 40 mg Syringe SC SCH (08:45)
[2018-08-21] MEDS: Cholecalciferol 1,000 INTLU TAB PO SCH (08:45)
--- NOTE | 2018-08-21 11:59 | CP.PCM.DIS ---
<Jared Brown - Last Filed: 08/21/18 11:57> Provider - Provider Date of Admission: 08/18/18 22:53 Attending physician: Khoa Ceron Time Spent in preparation of Discharge (in minutes): 20 Diagnosis - Discharge Diagnosis (1) Pain management Status: Acute (2) Anemia Status: Chronic Hospital Course - Lab Results Lab Results: Most Recent Lab Values WBC 8.9 K/uL (4.8-10.8) 08/18/18 21: RBC 2.94 Mil/uL (3.80-5.20) L 08/18/18 21: Hgb 8.9 g/dL (12.0-16.0) L 08/18/18: Hct 26.2 % (34.0-47.0) L 08/18/18: MCV 89.2 fl (81.0-99.0) 08/18/18: MCH 30.3 pg (27.0-31.0) 08/18/18: MCHC 33.9 g/dL (33.0-37.0) 08/18/18 21: RDW 13.6 % (11.5-14.5) 08/18/18: Plt Count 195 K/uL (130-400) 08/18/18 21: MPV 8.9 fl (7.2-11.7) 08/18/18 21:25 Neut % (Auto) 58.8 % (50.0-75.0) 08/18/18: Lymph % (Auto) 29.4 % (20.0-40.0) 08/18/18: [place] % (Auto) 7.6 % (0.0-10.0) 08/18/18: Eos % (Auto) 3.5 % (0.0-4.0) 08/18/18: Baso % (Auto) 0.7 % (0.0-2.0) 08/18/18: Neut # (Auto) 5.3 K/uL (1.8-7.0) 08/18/18: Lymph # (Auto) 2.6 K/uL (1.0-4.3) 08/18/18 21:25 [place] # (Auto) 0.7 K/uL (0.0-0.8) 08/18/18 21:25 Eos # (Auto) 0.3 K/uL (0.0-0.7) 08/18/18 21:25 Baso # (Auto) 0.1 K/uL (0.0-0.2) 08/18/18 21:25 PT 11.0 Seconds (9.8-13.1) 08/18/18 21:25 INR 1.0 08/18/18 21:25 APTT 27.3 Seconds (25.6-37.1) 08/18/18 21:25 Sodium 138 mmol/l (132-148) 08/18/18 21:25 Potassium 3.6 MMOL/L (3.6-5.0) 08/18/18 21:25 Chloride 102 mmol/L (98-107) 08/18/18 21:25 Carbon Dioxide 34 mmol/L (22-30) H 08/18/18 21:25 Anion Gap 6 (10-20) L 08/18/18 21:25 BUN 14 mg/dl (7-17) 08/18/18 21:25 Creatinine 0.9 mg/dl (0.7-1.2) 08/18/18 21:25 Est GFR ( Amer) > 60 08/18/18 21:25 Est GFR (Non-Af Amer) > 60 08/18/18 21:25 Random Glucose 106 mg/dL (65-105) H 08/18/18 21:25 Calcium 9.2 mg/dL (8.4-10.2) 08/18/18 21:25 Total Bilirubin 0.4 mg/dl (0.2-1.3) 08/18/18 21:25 AST 77 U/L (14-36) H 08/18/18 21:25 ALT 47 U/L (9-52) 08/18/18 21:25 Alkaline Phosphatase 85 U/L (38-126) 08/18/18 21:25 Total Protein 6.7 G/DL (6.3-8.2) 08/18/18 21:25 Albumin 3.2 g/dL (3.5-5.0) L 08/18/18 21:25 Globulin 3.5 gm/dL (2.2-3.9) 08/18/18 21:25 Albumin/Globulin Ratio 0.9 (1.0-2.1) L 08/18/18 21:25 - Hospital Course Hospital Course: PT STAYED ONE MORE DUE TO INSURANCE TECHNICAL PROBLEM Pt is a 68 yo Female with PMH of HTN, gastritis, RH arthritis with mitral regurgitation. S/P Elective Total LEFT hip replacement due to failure of medically management. Was admitted for surgery to be performed on 08/16/18, There was no complication during surgery, except mild anemia due to blood loss in surgery. Pt Was discharged to rehab, but did not like the Place and left AMA, Pt came back to hospital. Pt was admitted for pain management. Pt is stable, vitals are stable, pain is controlled with medication. Pt Will be discharged to TCU. Pt denies any chest pain sob, dizziness, abd pain, diarrhea, constipation, dysuria or polyuria . All chart and clinical data reviewed. Pt is comfortable to Go for TCU. Pt vitals are stable, LAbs are WNL, Anemia is being treated with ferrous sulfate, HTN with her home medication Pt is surgically and medically clear. Medicine team agree. Will discharge Pt to TCU. PT concern were reviewed and addressed, Pt question were answered. Pt will be discharge to TCU. Discharge Exam - Head Exam Head Exam: ATRAUMATIC, NORMAL INSPECTION, NORMOCEPHALIC - Eye Exam Eye Exam: EOMI, Normal appearance, PERRL Pupil Exam: NORMAL ACCOMODATION, PERRL - Respiratory Exam Respiratory Exam: Clear to PA & Lateral, NORMAL BREATHING PATTERN, UNREMARKABLE - Cardiovascular Exam Cardiovascular Exam: REGULAR RHYTHM, +S1, +S2 - GI/Abdominal Exam GI & Abdominal Exam: Normal Bowel Sounds, Unremarkable - Neurological Exam Neurological exam: Alert, Oriented x3 - Psychiatric Exam Psychiatric exam: Normal Affect, Normal Mood - Skin Skin Exam: Dry, Intact, Normal Color, Warm Discharge Plan - Discharge Medications Prescriptions: oxyCODONE/Acetaminophen [Percocet 5/325 mg Tab] 2 ea PO Q4 PRN #30 tab PRN Reason: Pain, Moderate (4-7) - Follow Up Plan Condition: STABLE Disposition: REHAB FACILITY/REHAB UNIT Patient education suggested?: Yes <Zaki Ventura - Last Filed: 08/21/18 14:46> Provider - Provider Date of Admission: 08/18/18 22:53 Attending physician: Khoa Bhardwaj [facility] Course - Lab Results Lab Results: Most Recent Lab Values WBC 8.9 K/uL (4.8-10.8) 08/18/18: RBC 2.94 Mil/uL (3.80-5.20) L 08/18/18: Hgb 8.9 g/dL (12.0-16.0) L 08/18/18: Hct 26.2 % (34.0-47.0) L 08/18/18: MCV 89.2 fl (81.0-99.0) 08/18/18: MCH 30.3 pg (27.0-31.0) 08/18/18: MCHC 33.9 g/dL (33.0-37.0) 08/18/18: RDW 13.6 % (11.5-14.5) 08/18/18: Plt Count 195 K/uL (130-400) 08/18/18: MPV 8.9 fl (7.2-11.7) 08/18/18: Neut % (Auto) 58.8 % (50.0-75.0) 08/18/18: Lymph % (Auto) 29.4 % (20.0-40.0) 08/18/18: [place] % (Auto) 7.6 % (0.0-10.0) 08/18/18: Eos % (Auto) 3.5 % (0.0-4.0) 08/18/18: Baso % (Auto) 0.7 % (0.0-2.0) 08/18/18: Neut # (Auto) 5.3 K/uL (1.8-7.0) 08/18/18: Lymph # (Auto) 2.6 K/uL (1.0-4.3) 08/18/18: [place] # (Auto) 0.7 K/uL (0.0-0.8) 08/18/18: Eos # (Auto) 0.3 K/uL (0.0-0.7) 09/22/18 21:25 Baso # (Auto) 0.1 K/uL (0.0-0.2) 08/18/18 21:25 PT 11.0 Seconds (9.8-13.1) 08/18/18 21:25 INR 1.0 08/18/18 21:25 APTT 27.3 Seconds (25.6-37.1) 08/18/18 21:25 Sodium 138 mmol/l (132-148) 08/18/18 21:25 Potassium 3.6 MMOL/L (3.6-5.0) 08/18/18 21:25 Chloride 102 mmol/L (98-107) 08/18/18 21:25 Carbon Dioxide 34 mmol/L (22-30) H 08/18/18 21:25 Anion Gap 6 (10-20) L 08/18/18 21:25 BUN 14 mg/dl (7-17) 08/18/18 21:25 Creatinine 0.9 mg/dl (0.7-1.2) 08/18/18 21:25 Est GFR ( Amer) > 60 08/18/18 21:25 Est GFR (Non-Af Amer) > 60 08/18/18 21:25 Random Glucose 106 mg/dL (65-105) H 08/18/18 21:25 Calcium 9.2 mg/dL (8.4-10.2) 08/18/18 21:25 Total Bilirubin 0.4 mg/dl (0.2-1.3) 08/18/18 21:25 AST 77 U/L (14-36) H 08/18/18 21:25 ALT 47 U/L (9-52) 08/18/18 21:25 Alkaline Phosphatase 85 U/L (38-126) 08/18/18 21:25 Total Protein 6.7 G/DL (6.3-8.2) 08/18/18 21:25 Albumin 3.2 g/dL (3.5-5.0) L 08/18/18 21:25 Globulin 3.5 gm/dL (2.2-3.9) 08/18/18 21:25 Albumin/Globulin Ratio 0.9 (1.0-2.1) L 08/18/18 21:25 Attending/Attestation - Attestation I have personally seen and examined this patient.: Yes I have fully participated in the care of the patient.: Yes I have reviewed all pertinent clinical information, including history, physical exam and plan: Yes
--- NOTE | 2018-08-21 13:48 | CP.PCM.PN ---
Subjective - Date & Time of Evaluation Date of Evaluation: 08/21/18 Time of Evaluation: 07:30 - Subjective Subjective: Patient seen and examined at bedside comfortable. Pain is well controlled. No new complaints. Denies CP/SOB/N/V/D/fever. Objective - Vital Signs/Intake and Output Vital Signs (last 24 hours): Temp Pulse Resp BP Pulse Ox 98.2 F 97 H 18 119/68 98 08/21/18 07:58 08/21/18 07:58 08/21/18 07:58 08/21/18 07:58 08/21/18 07:58 - Medications Medications: Current Medications Cholecalciferol (Vitamin D) 5,000 intlu PO DAILY [facility] Last Admin: 08/21/18 08:45 Dose: 5,000 intlu Docusate Sodium (Colace) 100 mg PO BID [facility] Last Admin: 08/21/18 08:46 Dose: 100 mg Enoxaparin Sodium (Lovenox) 40 mg SC DAILY [facility]; Protocol Last Admin: 08/21/18 08:45 Dose: 40 mg Ferrous Sulfate (Feosol) 325 mg PO BID [facility] Last Admin: 08/21/18 08:46 Dose: 325 mg Oxycodone HCl (Oxycodone Immediate Release Tab) 10 mg PO Q4 PRN PRN Reason: Pain, severe (8-10) Last Admin: 08/20/18 23:05 Dose: 10 mg - Labs Labs: 08/18/18 21:25 08/18/18 21:25 PT 11.0 Seconds (9.8-13.1) 08/18/18 21:25 INR 1.0 08/18/18 21:25 APTT 27.3 Seconds (25.6-37.1) 08/18/18 21:25 - Extremities Exam Additional comments: L hip: Dressings CDI mild diffuse swelling sensation intact SP/DP/TN motor intact EHL/FHL/TA/G/HS/Q pedal pulses intact comps soft NT b/l Assessment and Plan (1) Status post left hip replacement Assessment & Plan: POD# 6 s/p R TITO doing well -to be transferred to TCU today -PT/OT FWB -DVT ppx -orthopedically stable for d/w to TCU -above d/w Dr. Brock in agreement Status: Acute
== END 2018-08-21 14:43 ==
LOC: H.ER 19:37 → INTOOBSV 22:53 → H.ERHOLD 22:53 → H.MEDSURG1 08-19 00:30
PROVIDERS: ADMIT Internal Medicine; ATTEND Internal Medicine
DX: M25.552 Pain in left hip (principal); Z98.890 Other specified postprocedural states; M06.9 Rheumatoid arthritis, unspecified; I34.0 Nonrheumatic mitral (valve) insufficiency; I10 Essential (primary) hypertension; K29.70 Gastritis, unspecified, without bleeding; Z96.642 Presence of left artificial hip joint; Z88.0 Allergy status to penicillin; Z90.49 Acquired absence of other specified parts of digestive tract; Z90.710 Acquired absence of both cervix and uterus
CPT/HCPCS: 73501; 80053; 85025; 85610; 85730; 96372; 97116; 97161; 97165; 97535; 99284; G0378; G8978; G8979; G8987; G8988; J1650; J2270

== ENCOUNTER 2018-08-21 15:40 | Inpatient (IN) | payer BC, OTHER ==
[2018-08-21 15:43] VITALS: BMI 33.5
[2018-08-21] MEDS: Oxycodone/Acetaminophen 5/325 mg Tab PO PRN ×2 (16:28→20:38)
[2018-08-22] MEDS: Oxycodone/Acetaminophen 5/325 mg Tab PO PRN ×5 (00:19→22:14)
[2018-08-22] MEDS: Cholecalciferol 1,000 INTLU TAB PO SCH (08:55)
[2018-08-22] MEDS: Enoxaparin 40 mg Syringe SC SCH (08:55)
[2018-08-22] MEDS ORDERED: Patient's Own Med (Cholecalciferol (Vitamin D3) [Vitamin D3] 5,000 unit) PO SCH (09:00)
--- NOTE | 2018-08-22 09:35 | CP.PCM.PN ---
Subjective - Date & Time of Evaluation Date of Evaluation: 08/22/18 Time of Evaluation: 08:00 - Subjective Subjective: Patient seen and examined at bedside comfortable. Pain is well controlled. Tolerating PT well. No new complaints. Denies CP/SOB/N/V/D/fever. Objective - Vital Signs/Intake and Output Vital Signs (last 24 hours): Temp Pulse Resp BP Pulse Ox 97.9 F 89 20 143/71 99 08/22/18 09:00 08/22/18 09:00 08/22/18 09:00 08/22/18 09:00 08/22/18 09:00 - Medications Medications: Current Medications Cholecalciferol (Vitamin D) 5,000 intlu PO DAILY [facility] Last Admin: 08/22/18 08:55 Dose: 5,000 intlu Docusate Sodium (Colace) 100 mg PO BID [facility] Last Admin: 08/22/18 08:55 Dose: 100 mg Enoxaparin Sodium (Lovenox) 40 mg SC DAILY [facility]; Protocol Last Admin: 08/22/18 08:55 Dose: 40 mg Ferrous Sulfate (Feosol) 325 mg PO BID [facility] Last Admin: 08/22/18 08:55 Dose: 325 mg Home Med (Etanercept [Enbrel]) 50 mg IM ONCE [facility] Hydrochlorothiazide (Hydrodiuril) 25 mg PO DAILY [facility] Last Admin: 08/22/18 08:55 Dose: 25 mg Loratadine (Claritin) 10 mg PO DAILY [facility] Last Admin: 08/22/18 08:55 Dose: 10 mg Oxycodone/Acetaminophen (Percocet 5/325 Mg Tab) 2 tab PO Q4 PRN PRN Reason: Pain, moderate (4-7) Stop: 08/24/18 16:17 Last Admin: 08/22/18 04:54 Dose: 2 tab - Extremities Exam Additional comments: L hip: Dressings CDI mild diffuse swelling sensation intact SP/DP/TN motor intact EHL/FHL/TA/G/HS/Q pedal pulses intact comps soft NT b/l Assessment and Plan (1) Status post left hip replacement Assessment & Plan: POD# 6 s/p L TITO doing well -dry dressings changed -PT/OT FWB -DVT ppx -orthopedically stable -above d/w Dr. Brock in agreement Status: Acute
--- NOTE | 2018-08-22 13:17 | CP.PCM.HP ---
History of Present Illness - History of Present Illness History of Present Illness: 68 years old female with hx of HTN, Gastritis Rheumatoid Arthritis with Left Total Hip arthroplasty on 08/15/18 was discharged to [facility] on 08/17/18. Patient signed herself AMA and came to hospital comp laining of pain.pain management and PT were consulted . Now she is transferred to TCU for continuation of PT. She only complains of pain to the left hip . No fever, cough, nausea, vomits, SOB, chest Pain. Allergies: Penicillin PMH: RA; HTN; Gastritis; Mitral valve regurgitation, s/p left hip replacement Medications: SEe med rec Surgery : Appendectomy; Hysterectomy; Left Total Hip replacement Family history ; None Social history :No illegal drug use, No Alcohol use, No smoking ROS ; 10 point review of system negative except above Code status : full PMD ; Dr. Carney Present on Admission - Present on Admission Any Indicators Present on Admission: No Review of Systems - Review of Systems All systems: reviewed and no additional remarkable complaints except Past Patient History - Past Medical History & Family History Past Medical History?: Yes - Past Social History Smoking Status: Never Smoked - CARDIAC Hx Hypertension: Yes - PULMONARY Hx Respiratory Disorders: No - NEUROLOGICAL Hx Neurological Disorder: No - HEENT Hx HEENT Problems: No - RENAL Hx Chronic Kidney Disease: No - ENDOCRINE/METABOLIC Hx Endocrine Disorders: No - HEMATOLOGICAL/ONCOLOGICAL Hx Blood Disorders: No Hx AIDS: No Hx Human Immunodeficiency Virus (HIV): No - INTEGUMENTARY Hx Dermatological Problems: No - MUSCULOSKELETAL/RHEUMATOLOGICAL Hx Falls: No Hx Rheumatoid Arthritis: Yes - GASTROINTESTINAL Hx Gastrointestinal Disorders: Yes Hx Gastritis: Yes Hx Ulcer: Yes (GASTRIC) - GENITOURINARY/GYNECOLOGICAL Hx Genitourinary Disorders: No - PSYCHIATRIC Hx Psychophysiologic Disorder: No Hx Substance Use: No - SURGICAL HISTORY Hx Surgeries: Yes Hx Appendectomy: Yes Hx Hysterectomy: Yes Hx Joint Replacement: Yes (Lt Hip) Other/Comment: Uterine sx - ANESTHESIA Hx Anesthesia: Yes Hx Anesthesia Reactions: No Hx Malignant Hyperthermia: No Meds Allergies/Adverse Reactions: Allergies Allergy/AdvReac Type Severity Reaction Status Date / Time Penicillins Allergy RASH Verified 08/21/18 15:52 Physical Exam - Constitutional Appears: Non-toxic, No Acute Distress - Head Exam Head Exam: ATRAUMATIC, NORMAL INSPECTION, NORMOCEPHALIC - Eye Exam Eye Exam: EOMI, Normal appearance, PERRL Pupil Exam: NORMAL ACCOMODATION - ENT Exam ENT Exam: Mucous Membranes Moist, Normal Exam - Neck Exam Neck exam: Positive for: Full Rom, Normal Inspection - Respiratory Exam Respiratory Exam: Clear to Auscultation Bilateral, NORMAL BREATHING PATTERN. absent: Rales, Rhonchi, Wheezes - Cardiovascular Exam Cardiovascular Exam: REGULAR RHYTHM, RRR, +S1, +S2. absent: JVD - GI/Abdominal Exam GI & Abdominal Exam: Normal Bowel Sounds, Soft. absent: Distended, Guarding, Rebound, Tenderness - Rectal Exam Rectal Exam: Deferred - Extremities Exam Extremities exam: Positive for: normal capillary refill, normal inspection, pedal pulses present. Negative for: pedal edema Additional comments: left hip surgical incision with dressing in place - Back Exam Back exam: NORMAL INSPECTION - Neurological Exam Neurological exam: Alert, CN II-XII Intact, Oriented x3, Reflexes Normal - Psychiatric Exam Psychiatric exam: Normal Affect, Normal Mood - Skin Skin Exam: Dry, Intact, Normal Color, Warm Results - Vital Signs Recent Vital Signs: Last Vital Signs Temp 97.9 F 08/22/18 09:00 Pulse 89 08/22/18 11:00 Resp 20 08/22/18 09:00 BP 143/71 08/22/18 11:00 Pulse Ox 99 08/22/18 11:00 Assessment & Plan - Assessment and Plan (Free Text) Assessment: 68 years old female with hx of HTN, Gastritis Rheumatoid Arthritis with Left Total Hip arthroplasty on 08/15/18 was discharged to [facility] on 08/17/18. Patient signed herself AMA and came to hospital complaining of pain.pain management and PT were consulted . Now she is transferred to TCU for continuation of PT. She only complains of pain to the left hip . No fever, cough, nausea, vomits, SOB, chest Pain. 1. s/p Left THR Admit to TCU for PT physiatry consult ortho consult Continue pain management Lovenox 40 mg SQ QD for DVt prophylaxis 2. Anemia of acute blood loss Continue ferrous sulfate and monitor 3. Rheumatoid arthritis Hold Embrel for now Follow up with her [employer] on discharge 4. Hypertension controlled on HCTZ 5. Gastritis on Protonix 6. DVT prophylaxis on Lovenox
--- NOTE | 2018-08-22 13:30 | CP.PCM.CON ---
History of Present Illness - History of Present Illness History of Present Illness: 68 YEAR OLD FEMALE WITH LEFT HIP ARHTHROPLASTY, WITH HISTORY OF Rh aRTHRITIS, htn, gASTRITIS Review of Systems - Musculoskeletal Musculoskeletal: Muscle Weakness Past Patient History - Past Medical History & Family History Past Medical History?: Yes - Past Social History Smoking Status: Never Smoked - CARDIAC Hx Hypertension: Yes - PULMONARY Hx Respiratory Disorders: No - NEUROLOGICAL Hx Neurological Disorder: No - HEENT Hx HEENT Problems: No - RENAL Hx Chronic Kidney Disease: No - ENDOCRINE/METABOLIC Hx Endocrine Disorders: No - HEMATOLOGICAL/ONCOLOGICAL Hx Blood Disorders: No Hx AIDS: No Hx Human Immunodeficiency Virus (HIV): No - INTEGUMENTARY Hx Dermatological Problems: No - MUSCULOSKELETAL/RHEUMATOLOGICAL Hx Falls: No Hx Rheumatoid Arthritis: Yes - GASTROINTESTINAL Hx Gastrointestinal Disorders: Yes Hx Gastritis: Yes Hx Ulcer: Yes (GASTRIC) - GENITOURINARY/GYNECOLOGICAL Hx Genitourinary Disorders: No - PSYCHIATRIC Hx Psychophysiologic Disorder: No Hx Substance Use: No - SURGICAL HISTORY Hx Surgeries: Yes Hx Appendectomy: Yes Hx Hysterectomy: Yes Hx Joint Replacement: Yes (Lt Hip) Other/Comment: Uterine sx - ANESTHESIA Hx Anesthesia: Yes Hx Anesthesia Reactions: No Hx Malignant Hyperthermia: No Meds Allergies/Adverse Reactions: Allergies Allergy/AdvReac Type Severity Reaction Status Date / Time Penicillins Allergy RASH Verified 08/21/18 15:52 - Medications Medications: Current Medications Acetaminophen (Tylenol 325mg Tab) 325 mg PO Q4 PRN PRN Reason: Pain, Mild (1-3) Cholecalciferol (Vitamin D) 5,000 intlu PO DAILY [facility] Last Admin: 08/22/18 08:55 Dose: 5,000 intlu Docusate Sodium (Colace) 100 mg PO BID [facility] Last Admin: 08/22/18 08:55 Dose: 100 mg Enoxaparin Sodium (Lovenox) 40 mg SC DAILY [facility]; Protocol Last Admin: 08/22/18 08:55 Dose: 40 mg Ferrous Sulfate (Feosol) 325 mg PO BID [facility] Last Admin: 08/22/18 08:55 Dose: 325 mg Home Med (Etanercept [Enbrel]) 50 mg IM ONCE [facility] Hydrochlorothiazide (Hydrodiuril) 25 mg PO DAILY [facility] Last Admin: 08/22/18 08:55 Dose: 25 mg Loratadine (Claritin) 10 mg PO DAILY [facility] Last Admin: 08/22/18 08:55 Dose: 10 mg Ondansetron HCl (Zofran Tab) 4 mg PO Q6 PRN PRN Reason: Nausea/Vomiting Oxycodone/Acetaminophen (Percocet 5/325 Mg Tab) 1 tab PO Q4 PRN PRN Reason: Pain, moderate (4-7) Stop: 08/25/18 11:18 Oxycodone/Acetaminophen (Percocet 5/325 Mg Tab) 2 tab PO Q4 PRN PRN Reason: Pain, severe (8-10) Stop: 08/24/18 16:17 Pantoprazole Sodium (Protonix Ec Tab) 40 mg PO DAILY [facility] Physical Exam - Head Exam Head Exam: ATRAUMATIC, NORMAL INSPECTION, NORMOCEPHALIC - Eye Exam Eye Exam: EOMI, Normal appearance, PERRL Pupil Exam: NORMAL ACCOMODATION - ENT Exam ENT Exam: Mucous Membranes Moist, Normal Exam - Neck Exam Neck exam: Positive for: Normal Inspection - Respiratory Exam Respiratory Exam: Clear to Auscultation Bilateral, NORMAL BREATHING PATTERN - Cardiovascular Exam Cardiovascular Exam: REGULAR RHYTHM - GI/Abdominal Exam GI & Abdominal Exam: Normal Bowel Sounds - Rectal Exam Rectal Exam: NORMAL INSPECTION - Exam External exam: NORMAL EXTERNAL EXAM - Extremities Exam Extremities exam: Positive for: normal inspection Additional comments: LEFT LEG WEAKNESS - Back Exam Back exam: NORMAL INSPECTION - Neurological Exam Neurological exam: Alert, CN II-XII Intact - Psychiatric Exam Psychiatric exam: Normal Affect, Normal Mood - Skin Skin Exam: Dry, Normal Color Results - Vital Signs Recent Vital Signs: Last Vital Signs Temp 97.9 F 08/22/18 09:00 Pulse 89 08/22/18 11:00 Resp 20 08/22/18 09:00 BP 143/71 08/22/18 11:00 Pulse Ox 99 08/22/18 11:00 Assessment & Plan (1) Acute blood loss anemia Status: Acute (2) Chest wall pain Status: Acute (3) Hip pain Status: Acute (4) Osteoarthritis of left hip Status: Acute (5) Pain management Status: Acute (6) Status post left hip replacement Assessment and Plan: PLAN FOR PHYSICAL, OCCUPATIONAL, THERAPY PAIN TREATMENT, TYLENOL, PERCOSET. COLACE AND DULCOLAX FOR CONSTIPATION Status: Acute (7) Anemia Status: Chronic
[2018-08-22] MEDS: Pantoprazole 40 mg EC Tab PO SCH (17:28)
[2018-08-23] MEDS: Oxycodone/Acetaminophen 5/325 mg Tab PO PRN ×4 (06:05→21:57)
[2018-08-23] MEDS: Enoxaparin 40 mg Syringe SC SCH (08:15)
[2018-08-23] MEDS: Cholecalciferol 1,000 INTLU TAB PO SCH (08:15)
[2018-08-23] MEDS: Pantoprazole 40 mg EC Tab PO SCH (08:16)
--- NOTE | 2018-08-23 11:23 | CP.PCM.PN ---
Subjective - Date & Time of Evaluation Date of Evaluation: 08/23/18 Time of Evaluation: 07:45 - Subjective Subjective: Patient seen and examined at bedside comfortable eating breakfast. Pain is well controlled. Tolerating PT well. No new complaints. Objective - Vital Signs/Intake and Output Vital Signs (last 24 hours): Temp Pulse Resp BP Pulse Ox 97.7 F 91 H 20 107/58 L 96 08/23/18 08:49 08/23/18 08:49 08/23/18 08:49 08/23/18 08:49 08/23/18 08:49 - Medications Medications: Current Medications Acetaminophen (Tylenol 325mg Tab) 325 mg PO Q4 PRN PRN Reason: Pain, Mild (1-3) Cholecalciferol (Vitamin D) 5,000 intlu PO DAILY [facility] Last Admin: 08/23/18 08:15 Dose: 5,000 intlu Docusate Sodium (Colace) 100 mg PO BID [facility] Last Admin: 08/23/18 08:15 Dose: 100 mg Enoxaparin Sodium (Lovenox) 40 mg SC DAILY [facility]; Protocol Last Admin: 08/23/18 08:15 Dose: 40 mg Ferrous Sulfate (Feosol) 325 mg PO BID [facility] Last Admin: 08/23/18 08:15 Dose: 325 mg Home Med (Etanercept [Enbrel]) 50 mg IM ONCE [facility] Hydrochlorothiazide (Hydrodiuril) 25 mg PO DAILY [facility] Last Admin: 08/23/18 08:16 Dose: 25 mg Loratadine (Claritin) 10 mg PO DAILY [facility] Last Admin: 08/23/18 08:16 Dose: 10 mg Ondansetron HCl (Zofran Tab) 4 mg PO Q6 PRN PRN Reason: Nausea/Vomiting Oxycodone/Acetaminophen (Percocet 5/325 Mg Tab) 1 tab PO Q4 PRN PRN Reason: Pain, moderate (4-7) Stop: 08/25/18 11:18 Last Admin: 08/23/18 06:05 Dose: 1 tab Oxycodone/Acetaminophen (Percocet 5/325 Mg Tab) 2 tab PO Q4 PRN PRN Reason: Pain, severe (8-10) Stop: 08/24/18 16:17 Last Admin: 08/23/18 09:49 Dose: 2 tab Pantoprazole Sodium (Protonix Ec Tab) 40 mg PO DAILY [facility] Last Admin: 08/23/18 08:16 Dose: 40 mg - Extremities Exam Additional comments: L hip: Dressings CDI mild diffuse swelling sensation intact SP/DP/TN motor intact EHL/FHL/TA/G/HS/Q pedal pulses intact comps soft NT b/l Assessment and Plan (1) Status post left hip replacement Assessment & Plan: POD# 7 s/p L TITO doing well -PT/OT FWB -DVT ppx -orthopedically stable -above d/w Dr. Brock in agreement Status: Acute
--- NOTE | 2018-08-23 14:00 | CP.PCM.PN ---
Subjective - Date & Time of Evaluation Date of Evaluation: 08/23/18 Time of Evaluation: 09:30 - Subjective Subjective: Patient seen and examined . Participating with PT and doing well. Hemodynamically stable, afebrile. No acute issues overnight. Objective - Vital Signs/Intake and Output Vital Signs (last 24 hours): Temp Pulse Resp BP Pulse Ox 97.7 F 91 H 20 107/58 L 96 08/23/18 08:49 08/23/18 08:49 08/23/18 08:49 08/23/18 08:49 08/23/18 08:49 - Medications Medications: Current Medications Acetaminophen (Tylenol 325mg Tab) 325 mg PO Q4 PRN PRN Reason: Pain, Mild (1-3) Cholecalciferol (Vitamin D) 5,000 intlu PO DAILY [facility] Last Admin: 08/23/18 08:15 Dose: 5,000 intlu Docusate Sodium (Colace) 100 mg PO BID [facility] Last Admin: 08/23/18 08:15 Dose: 100 mg Enoxaparin Sodium (Lovenox) 40 mg SC DAILY [facility]; Protocol Last Admin: 08/23/18 08:15 Dose: 40 mg Ferrous Sulfate (Feosol) 325 mg PO BID [facility] Last Admin: 08/23/18 08:15 Dose: 325 mg Home Med (Etanercept [Enbrel]) 50 mg IM ONCE [facility] Hydrochlorothiazide (Hydrodiuril) 25 mg PO DAILY [facility] Last Admin: 08/23/18 08:16 Dose: 25 mg Loratadine (Claritin) 10 mg PO DAILY [facility] Last Admin: 08/23/18 08:16 Dose: 10 mg Ondansetron HCl (Zofran Tab) 4 mg PO Q6 PRN PRN Reason: Nausea/Vomiting Oxycodone/Acetaminophen (Percocet 5/325 Mg Tab) 1 tab PO Q4 PRN PRN Reason: Pain, moderate (4-7) Stop: 08/25/18 11:18 Last Admin: 08/23/18 06:05 Dose: 1 tab Oxycodone/Acetaminophen (Percocet 5/325 Mg Tab) 2 tab PO Q4 PRN PRN Reason: Pain, severe (8-10) Stop: 08/24/18 16:17 Last Admin: 08/23/18 09:49 Dose: 2 tab Pantoprazole Sodium (Protonix Ec Tab) 40 mg PO DAILY [facility] Last Admin: 08/23/18 08:16 Dose: 40 mg - Constitutional Appears: Non-toxic, No Acute Distress - Head Exam Head Exam: ATRAUMATIC, NORMAL INSPECTION, NORMOCEPHALIC - Eye Exam Eye Exam: EOMI, Normal appearance, PERRL Pupil Exam: NORMAL ACCOMODATION - ENT Exam ENT Exam: Mucous Membranes Moist, Normal Exam - Neck Exam Neck Exam: Full ROM, Normal Inspection - Respiratory Exam Respiratory Exam: Clear to Ausculation Bilateral, NORMAL BREATHING PATTERN. absent: Rales, Rhonchi, Wheezes - Cardiovascular Exam Cardiovascular Exam: REGULAR RHYTHM, RRR, +S1, +S2. absent: JVD - GI/Abdominal Exam GI & Abdominal Exam: Soft, Normal Bowel Sounds. absent: Distended, Guarding, Rebound - Rectal Exam Rectal Exam: Deferred - Extremities Exam Extremities Exam: Normal Capillary Refill, Normal Inspection Additional comments: left hip surgical incision with dressing - Back Exam Back Exam: NORMAL INSPECTION - Neurological Exam Neurological Exam: Alert, Awake, CN II-XII Intact, Oriented x3 - Psychiatric Exam Psychiatric exam: Normal Affect, Normal Mood - Skin Skin Exam: Dry, Intact, Normal Color, Warm Assessment and Plan - Assessment and Plan (Free Text) Assessment: 68 years old female with hx of HTN, Gastritis Rheumatoid Arthritis with Left Total Hip arthroplasty on 08/15/18 was discharged to [facility] on 08/17/18. Patient signed herself AMA and came to hospital complaining of pain.pain management and PT were consulted . Now she is transferred to TCU for continuation of PT. She only complains of pain to the left hip . No fever, cough, nausea, vomits, SOB, chest Pain. 1. s/p Left THR continue PT in TCU physiatry consult appreciated ortho consult appreciated Continue pain management Lovenox 40 mg SQ QD for DVt prophylaxis 2. Anemia of acute blood loss Continue ferrous sulfate and monitor 3. Rheumatoid arthritis Hold Embrel for now Follow up with her Rehab Services Aide on discharge 4. Hypertension controlled on HCTZ 5. Gastritis on Protonix 6. DVT prophylaxis on Lovenox
[2018-08-24] MEDS: Oxycodone/Acetaminophen 5/325 mg Tab PO PRN ×5 (04:33→22:27)
[2018-08-24] MEDS: Enoxaparin 40 mg Syringe SC SCH (08:35)
[2018-08-24] MEDS: Cholecalciferol 1,000 INTLU TAB PO SCH (08:36)
[2018-08-24] MEDS: Pantoprazole 40 mg EC Tab PO SCH (08:36)
--- NOTE | 2018-08-24 11:16 | CP.PCM.PN ---
Subjective - Date & Time of Evaluation Date of Evaluation: 08/24/18 Time of Evaluation: 14:35 - Subjective Subjective: Patiet states pain is controlled. Denies CP/SB/dizziness. Some aching to thigh, but overall improviing. Objective - Vital Signs/Intake and Output Vital Signs (last 24 hours): Temp Pulse Resp BP Pulse Ox 97.9 F 88 20 103/65 100 08/24/18 08:00 08/24/18 08:00 08/24/18 08:00 08/24/18 08:00 08/23/18 20:27 - Medications Medications: Current Medications Acetaminophen (Tylenol 325mg Tab) 325 mg PO Q4 PRN PRN Reason: Pain, Mild (1-3) Cholecalciferol (Vitamin D) 5,000 intlu PO DAILY [facility] Last Admin: 08/24/18 08:36 Dose: 5,000 intlu Docusate Sodium (Colace) 100 mg PO BID [facility] Last Admin: 08/24/18 08:35 Dose: 100 mg Enoxaparin Sodium (Lovenox) 40 mg SC DAILY [facility]; Protocol Last Admin: 08/24/18 08:35 Dose: 40 mg Ferrous Sulfate (Feosol) 325 mg PO BID [facility] Last Admin: 08/24/18 08:36 Dose: 325 mg Home Med (Etanercept [Enbrel]) 50 mg IM ONCE [facility] Hydrochlorothiazide (Hydrodiuril) 25 mg PO DAILY [facility] Last Admin: 08/24/18 08:35 Dose: 25 mg Loratadine (Claritin) 10 mg PO DAILY [facility] Last Admin: 08/24/18 08:36 Dose: 10 mg Ondansetron HCl (Zofran Tab) 4 mg PO Q6 PRN PRN Reason: Nausea/Vomiting Oxycodone/Acetaminophen (Percocet 5/325 Mg Tab) 1 tab PO Q4 PRN PRN Reason: Pain, moderate (4-7) Stop: 08/25/18 11:18 Last Admin: 08/23/18 06:05 Dose: 1 tab Oxycodone/Acetaminophen (Percocet 5/325 Mg Tab) 2 tab PO Q4 PRN PRN Reason: Pain, severe (8-10) Stop: 08/24/18 16:17 Last Admin: 08/24/18 09:44 Dose: 2 tab Pantoprazole Sodium (Protonix Ec Tab) 40 mg PO DAILY [facility] Last Admin: 08/24/18 08:36 Dose: 40 mg - Extremities Exam Additional comments: incision intact, dry, thigh soft +ROM ankle/toes, sensation intact +DP/PT pulses Assessment and Plan (1) Osteoarthritis of left hip Assessment & Plan: s/p THR progressing well cont VTE proph PT/OT d/w Dr. Brock, agrees with above Status: Acute (2) Acute blood loss anemia Status: Acute
--- NOTE | 2018-08-24 13:58 | CP.PCM.PN ---
Subjective - Date & Time of Evaluation Date of Evaluation: 08/24/18 Time of Evaluation: 09:30 - Subjective Subjective: no acute left pain Objective - Vital Signs/Intake and Output Vital Signs (last 24 hours): Temp Pulse Resp BP Pulse Ox 97.9 F 88 20 103/65 100 08/24/18 08:00 08/24/18 08:00 08/24/18 08:00 08/24/18 08:00 08/23/18 20:27 - Medications Medications: Current Medications Acetaminophen (Tylenol 325mg Tab) 325 mg PO Q4 PRN PRN Reason: Pain, Mild (1-3) Cholecalciferol (Vitamin D) 5,000 intlu PO DAILY [facility] Last Admin: 08/24/18 08:36 Dose: 5,000 intlu Docusate Sodium (Colace) 100 mg PO BID [facility] Last Admin: 08/24/18 08:35 Dose: 100 mg Enoxaparin Sodium (Lovenox) 40 mg SC DAILY [facility]; Protocol Last Admin: 08/24/18 08:35 Dose: 40 mg Ferrous Sulfate (Feosol) 325 mg PO BID [facility] Last Admin: 08/24/18 08:36 Dose: 325 mg Home Med (Etanercept [Enbrel]) 50 mg IM ONCE [facility] Hydrochlorothiazide (Hydrodiuril) 25 mg PO DAILY [facility] Last Admin: 08/24/18 08:35 Dose: 25 mg Loratadine (Claritin) 10 mg PO DAILY [facility] Last Admin: 08/24/18 08:36 Dose: 10 mg Ondansetron HCl (Zofran Tab) 4 mg PO Q6 PRN PRN Reason: Nausea/Vomiting Oxycodone/Acetaminophen (Percocet 5/325 Mg Tab) 1 tab PO Q4 PRN PRN Reason: Pain, moderate (4-7) Stop: 08/25/18 11:18 Last Admin: 08/23/18 06:05 Dose: 1 tab Oxycodone/Acetaminophen (Percocet 5/325 Mg Tab) 2 tab PO Q4 PRN PRN Reason: Pain, severe (8-10) Stop: 08/24/18 16:17 Last Admin: 08/24/18 13:11 Dose: 2 tab Pantoprazole Sodium (Protonix Ec Tab) 40 mg PO DAILY [facility] Last Admin: 08/24/18 08:36 Dose: 40 mg - Head Exam Head Exam: ATRAUMATIC, NORMAL INSPECTION, NORMOCEPHALIC - Eye Exam Eye Exam: EOMI, Normal appearance, PERRL Pupil Exam: NORMAL ACCOMODATION - ENT Exam ENT Exam: Mucous Membranes Moist, Normal Exam - Neck Exam Neck Exam: Full ROM, Normal Inspection - Respiratory Exam Respiratory Exam: NORMAL BREATHING PATTERN - Cardiovascular Exam Cardiovascular Exam: REGULAR RHYTHM - GI/Abdominal Exam GI & Abdominal Exam: Soft, Normal Bowel Sounds - Rectal Exam Rectal Exam: NORMAL INSPECTION - Exam External exam: NORMAL EXTERNAL EXAM - Extremities Exam Extremities Exam: Full ROM, Normal Capillary Refill - Back Exam Back Exam: NORMAL INSPECTION - Neurological Exam Neurological Exam: Alert, Awake Neuro motor strength exam: Left Lower Extremity: 3 - Psychiatric Exam Psychiatric exam: Normal Affect, Normal Mood - Skin Skin Exam: Normal Color Assessment and Plan (1) Acute blood loss anemia Status: Acute (2) Chest wall pain Status: Acute (3) Hip pain Status: Acute (4) Osteoarthritis of left hip Status: Acute (5) Pain management Status: Acute (6) Status post left hip replacement Assessment & Plan: plan for physical, occupational, pain treatment and monitor skin Status: Acute (7) Anemia Status: Chronic
[2018-08-25] MEDS: Oxycodone/Acetaminophen 5/325 mg Tab PO PRN ×4 (06:05→20:56)
[2018-08-25 06:25] LABS: HEMOGLOBIN 9.3 g/dL (12.0-16.0); MEAN CELL VOLUME 89.1 fl (81.0-99.0); MEAN CORPUSCULAR HEMOGLOBIN 29.8 pg (27.0-31.0); MEAN CORPUSCULAR HGB CONC 33.4 g/dL (33.0-37.0); RBC 3.12 Mil/uL (3.80-5.20); RED CELL DISTRIBUTION WIDTH 13.8 % (11.5-14.5); WHITE BLOOD COUNT 6.9 K/uL (4.8-10.8)
[2018-08-25 06:26] LABS: INR 1.1; PROTHROMBIN TIME 12.1 Seconds (9.8-13.1)
[2018-08-25 06:29] LABS: PARTIAL THROMBOPLASTIN TIME 28.1 Seconds (25.6-37.1)
[2018-08-25 06:54] LABS: ALB/GLOB RATIO 0.9 (1.0-2.1); ALBUMIN 3.4 g/dL (3.5-5.0); ALT/SGPT 45 U/L (9-52); AST/SGOT 56 U/L (14-36); BLOOD UREA NITROGEN 12 mg/dl (7-17); CALCIUM 9.6 mg/dL (8.4-10.2); GFR NON-AFRICAN AMERICAN > 60
[2018-08-25] MEDS: Pantoprazole 40 mg EC Tab PO SCH (08:22)
[2018-08-25] MEDS: Enoxaparin 40 mg Syringe SC SCH ×2 (08:22→08:24)
[2018-08-25] MEDS: Cholecalciferol 1,000 INTLU TAB PO SCH (08:23)
[2018-08-26] MEDS: Oxycodone/Acetaminophen 5/325 mg Tab PO PRN ×5 (05:51→23:55)
[2018-08-26] MEDS: Cholecalciferol 1,000 INTLU TAB PO SCH (08:21)
[2018-08-26] MEDS: Pantoprazole 40 mg EC Tab PO SCH (08:21)
--- NOTE | 2018-08-26 09:18 | CP.PCM.PN ---
Subjective - Date & Time of Evaluation Date of Evaluation: 08/26/18 Time of Evaluation: 09:00 - Subjective Subjective: S- pt with no discomfort/ comfortable at bedrest Objective - Vital Signs/Intake and Output Vital Signs (last 24 hours): Temp Pulse Resp BP Pulse Ox 97.1 F L 64 18 155/68 H 100 08/25/18 22:00 08/25/18 22:00 08/25/18 22:00 08/25/18 22:00 08/25/18 22:00 - Medications Medications: Current Medications Acetaminophen (Tylenol 325mg Tab) 325 mg PO Q4 PRN PRN Reason: Pain, Mild (1-3) Cholecalciferol (Vitamin D) 5,000 intlu PO DAILY [facility] Last Admin: 08/26/18 08:21 Dose: 5,000 intlu Docusate Sodium (Colace) 100 mg PO BID [facility] Last Admin: 08/26/18 08:20 Dose: 100 mg Enoxaparin Sodium (Lovenox) 40 mg SC DAILY [facility]; Protocol Stop: 10/23/18 09:01 Last Admin: 08/25/18 08:24 Dose: Not Given Ferrous Sulfate (Feosol) 325 mg PO BID [facility] Last Admin: 08/26/18 08:21 Dose: 325 mg Home Med (Etanercept [Enbrel]) 50 mg IM ONCE [facility] Hydrochlorothiazide (Hydrodiuril) 25 mg PO DAILY [facility] Last Admin: 08/26/18 08:21 Dose: 25 mg Loratadine (Claritin) 10 mg PO DAILY [facility] Last Admin: 08/26/18 08:20 Dose: 10 mg Ondansetron HCl (Zofran Tab) 4 mg PO Q6 PRN PRN Reason: Nausea/Vomiting Oxycodone/Acetaminophen (Percocet 5/325 Mg Tab) 2 tab PO Q4 PRN PRN Reason: Pain, severe (8-10) Stop: 08/27/18 16:43 Last Admin: 08/26/18 05:51 Dose: 2 tab Pantoprazole Sodium (Protonix Ec Tab) 40 mg PO DAILY [facility] Last Admin: 08/26/18 08:21 Dose: 40 mg - Labs Labs: 08/25/18 05:30 08/25/18 05:30 PT 12.1 Seconds (9.8-13.1) 08/25/18 05:30 INR 1.1 08/25/18 05:30 APTT 28.1 Seconds (25.6-37.1) 08/25/18 05:30 - Additional Findings Additional findings: Objective - wound benign no thigh swelling painless ROM orthopedically stable Assessment and Plan - Assessment and Plan (Free Text) Assessment: A- s/p Anterior approach THR P- orthopedically stable
[2018-08-26] MEDS: Enoxaparin 40 mg Syringe SC SCH (11:20)
[2018-08-26 15:54] VITALS: RESP 20
[2018-08-27] MEDS: Oxycodone/Acetaminophen 5/325 mg Tab PO PRN ×4 (06:08→20:12)
[2018-08-27] MEDS: Cholecalciferol 1,000 INTLU TAB PO SCH (08:14)
[2018-08-27] MEDS: Enoxaparin 40 mg Syringe SC SCH (08:14)
[2018-08-27] MEDS: Pantoprazole 40 mg EC Tab PO SCH (08:14)
--- NOTE | 2018-08-27 10:31 | CP.PCM.PN ---
Subjective - Date & Time of Evaluation Date of Evaluation: 08/27/18 Time of Evaluation: 09:00 - Subjective Subjective: Patient seen and examined OOB to chair working with PT. Pain is much improved. No new complaints. Denies CP/SOB/dizziness/fever. Objective - Vital Signs/Intake and Output Vital Signs (last 24 hours): Temp Pulse Resp BP Pulse Ox 97.9 F 80 20 113/51 L 99 08/27/18 09:30 08/27/18 09:30 08/27/18 09:30 08/27/18 09:30 08/27/18 09:30 - Medications Medications: Current Medications Acetaminophen (Tylenol 325mg Tab) 325 mg PO Q4 PRN PRN Reason: Pain, Mild (1-3) Cholecalciferol (Vitamin D) 5,000 intlu PO DAILY [facility] Last Admin: 08/27/18 08:14 Dose: 5,000 intlu Docusate Sodium (Colace) 100 mg PO BID [facility] Last Admin: 08/27/18 08:14 Dose: 100 mg Enoxaparin Sodium (Lovenox) 40 mg SC DAILY [facility]; Protocol Stop: 10/23/18 09:01 Last Admin: 08/27/18 08:14 Dose: 40 mg Ferrous Sulfate (Feosol) 325 mg PO BID [facility] Last Admin: 08/27/18 08:14 Dose: 325 mg Home Med (Etanercept [Enbrel]) 50 mg IM ONCE [facility] Hydrochlorothiazide (Hydrodiuril) 25 mg PO DAILY [facility] Last Admin: 08/27/18 08:14 Dose: 25 mg Loratadine (Claritin) 10 mg PO DAILY [facility] Last Admin: 08/27/18 08:14 Dose: 10 mg Ondansetron HCl (Zofran Tab) 4 mg PO Q6 PRN PRN Reason: Nausea/Vomiting Oxycodone/Acetaminophen (Percocet 5/325 Mg Tab) 2 tab PO Q4 PRN PRN Reason: Pain, severe (8-10) Stop: 08/27/18 16:43 Last Admin: 08/27/18 06:08 Dose: 2 tab Pantoprazole Sodium (Protonix Ec Tab) 40 mg PO DAILY [facility] Last Admin: 08/27/18 08:14 Dose: 40 mg - Labs Labs: 08/25/18 05:30 08/25/18 05:30 PT 12.1 Seconds (9.8-13.1) 08/25/18 05:30 INR 1.1 08/25/18 05:30 APTT 28.1 Seconds (25.6-37.1) 08/25/18 05:30 - Extremities Exam Additional comments: L hip: Dressings CDI no swelling sensation intact SP/DP/TN motor intact EHL/FHL/TA/G/HS/Q pedal pulses intact comps soft NT b/l Assessment and Plan (1) Status post left hip replacement Assessment & Plan: POD #11 s/p L TITO doing well -PT/OT FWB -DVT ppx -orthopedically stable -above d/w Dr. Brock in agreement Status: Acute
[2018-08-28] MEDS: Oxycodone/Acetaminophen 5/325 mg Tab PO PRN ×5 (04:01→22:36)
[2018-08-28] MEDS: Pantoprazole 40 mg EC Tab PO SCH (08:58)
[2018-08-28] MEDS: Enoxaparin 40 mg Syringe SC SCH (08:58)
[2018-08-28] MEDS: Cholecalciferol 1,000 INTLU TAB PO SCH (08:58)
--- NOTE | 2018-08-28 09:34 | CP.PCM.PN ---
Subjective - Date & Time of Evaluation Date of Evaluation: 08/28/18 Time of Evaluation: 09:00 - Subjective Subjective: Patient seen and examined . Doing well. hemodynamically stable,afebrile. Participating well with PT. No acute issues overnight. Objective - Vital Signs/Intake and Output Vital Signs (last 24 hours): Temp Pulse Resp BP Pulse Ox 97.7 F 86 20 122/77 98 08/28/18 08:06 08/28/18 08:06 08/28/18 08:06 08/28/18 08:06 08/28/18 08:06 - Medications Medications: Current Medications Acetaminophen (Tylenol 325mg Tab) 325 mg PO Q4 PRN PRN Reason: Pain, Mild (1-3) Cholecalciferol (Vitamin D) 5,000 intlu PO DAILY [facility] Last Admin: 08/28/18 08:58 Dose: 5,000 intlu Docusate Sodium (Colace) 100 mg PO BID [facility] Last Admin: 08/28/18 08:57 Dose: 100 mg Ferrous Sulfate (Feosol) 325 mg PO BID [facility] Last Admin: 08/28/18 08:57 Dose: 325 mg Home Med (Etanercept [Enbrel]) 50 mg IM ONCE [facility] Hydrochlorothiazide (Hydrodiuril) 25 mg PO DAILY [facility] Last Admin: 08/28/18 08:58 Dose: 25 mg Loratadine (Claritin) 10 mg PO DAILY [facility] Last Admin: 08/28/18 08:57 Dose: 10 mg Ondansetron HCl (Zofran Tab) 4 mg PO Q6 PRN PRN Reason: Nausea/Vomiting Oxycodone/Acetaminophen (Percocet 5/325 Mg Tab) 2 tab PO Q4 PRN PRN Reason: Pain, severe (8-10) Stop: 08/30/18 20:05 Last Admin: 08/28/18 08:57 Dose: 2 tab Pantoprazole Sodium (Protonix Ec Tab) 40 mg PO DAILY [facility] Last Admin: 08/28/18 08:58 Dose: 40 mg - Labs Labs: 08/25/18 05:30 08/25/18 05:30 PT 12.1 Seconds (9.8-13.1) 08/25/18 05:30 INR 1.1 08/25/18 05:30 APTT 28.1 Seconds (25.6-37.1) 08/25/18 05:30 - Constitutional Appears: Non-toxic, No Acute Distress - Head Exam Head Exam: ATRAUMATIC, NORMAL INSPECTION, NORMOCEPHALIC - Eye Exam Eye Exam: EOMI, Normal appearance, PERRL Pupil Exam: NORMAL ACCOMODATION - ENT Exam ENT Exam: Mucous Membranes Moist, Normal Exam - Neck Exam Neck Exam: Full ROM, Normal Inspection - Respiratory Exam Respiratory Exam: Clear to Ausculation Bilateral, NORMAL BREATHING PATTERN. absent: Rales, Rhonchi, Wheezes - Cardiovascular Exam Cardiovascular Exam: REGULAR RHYTHM, RRR, +S1, +S2. absent: JVD - GI/Abdominal Exam GI & Abdominal Exam: Soft, Normal Bowel Sounds. absent: Distended, Guarding, Rebound - Rectal Exam Rectal Exam: Deferred - Extremities Exam Extremities Exam: Full ROM, Normal Capillary Refill, Normal Inspection. absent: Pedal Edema Additional comments: left hip surgical incision healing well - Back Exam Back Exam: NORMAL INSPECTION - Neurological Exam Neurological Exam: Alert, Awake, CN II-XII Intact, Normal Gait - Psychiatric Exam Psychiatric exam: Normal Affect, Normal Mood - Skin Skin Exam: Dry, Intact, Normal Color, Warm Assessment and Plan - Assessment and Plan (Free Text) Assessment: 68 years old female with hx of HTN, Gastritis Rheumatoid Arthritis with Left Total Hip arthroplasty on 08/15/18 was discharged to [facility] on 08/17/18. Patient signed herself AMA and came to hospital complaining of pain.pain management and PT were consulted . Now she is transferred to TCU for continuation of PT. She is participating well with PT. 1. s/p Left THR participating with PT well and improving physiatry consult appreciated ortho consult appreciated Continue pain management Lovenox 40 mg SQ QD for DVT prophylaxis 2. Anemia of acute blood loss Continue ferrous sulfate and monitor 3. Rheumatoid arthritis Hold Embrel for now Follow up with her Spr[facility] Painter on discharge 4. Hypertension controlled on HCTZ 5. Gastritis on Protonix 6. DVT prophylaxis on Lovenox
--- NOTE | 2018-08-28 14:52 | CP.PCM.PN ---
Subjective - Date & Time of Evaluation Date of Evaluation: 08/28/18 Time of Evaluation: 14:50 - Subjective Subjective: Patient seen and examined at bedside comfortable. Mild soreness to hip, very tolerable. No new complaints. Objective - Vital Signs/Intake and Output Vital Signs (last 24 hours): Temp Pulse Resp BP Pulse Ox 97.7 F 86 20 122/77 98 08/28/18 08:06 08/28/18 08:06 08/28/18 08:06 08/28/18 08:06 08/28/18 08:06 - Medications Medications: Current Medications Acetaminophen (Tylenol 325mg Tab) 325 mg PO Q4 PRN PRN Reason: Pain, Mild (1-3) Cholecalciferol (Vitamin D) 5,000 intlu PO DAILY [facility] Last Admin: 08/28/18 08:58 Dose: 5,000 intlu Docusate Sodium (Colace) 100 mg PO BID [facility] Last Admin: 08/28/18 08:57 Dose: 100 mg Enoxaparin Sodium (Lovenox) 40 mg SC DAILY [facility]; Protocol Ferrous Sulfate (Feosol) 325 mg PO BID [facility] Last Admin: 08/28/18 08:57 Dose: 325 mg Home Med (Etanercept [Enbrel]) 50 mg IM ONCE [facility] Hydrochlorothiazide (Hydrodiuril) 25 mg PO DAILY [facility] Last Admin: 08/28/18 08:58 Dose: 25 mg Loratadine (Claritin) 10 mg PO DAILY [facility] Last Admin: 08/28/18 08:57 Dose: 10 mg Ondansetron HCl (Zofran Tab) 4 mg PO Q6 PRN PRN Reason: Nausea/Vomiting Oxycodone/Acetaminophen (Percocet 5/325 Mg Tab) 2 tab PO Q4 PRN PRN Reason: Pain, severe (8-10) Stop: 08/30/18 20:05 Last Admin: 08/28/18 14:15 Dose: 2 tab Pantoprazole Sodium (Protonix Ec Tab) 40 mg PO DAILY [facility] Last Admin: 08/28/18 08:58 Dose: 40 mg - Labs Labs: 08/25/18 05:30 08/25/18 05:30 PT 12.1 Seconds (9.8-13.1) 08/25/18 05:30 INR 1.1 08/25/18 05:30 APTT 28.1 Seconds (25.6-37.1) 08/25/18 05:30 - Extremities Exam Additional comments: L hip: Dressings CDI no swelling sensation intact SP/DP/TN motor intact EHL/FHL/TA/G/HS/Q pedal pulses intact comps soft NT b/l Assessment and Plan (1) Status post left hip replacement Assessment & Plan: POD #12 s/p L TITO doing well -PT/OT FWB -DVT ppx -orthopedically stable -above d/w Dr. Brock in agreement Status: Acute
--- NOTE | 2018-08-28 15:13 | CP.PCM.PN ---
Subjective - Date & Time of Evaluation Date of Evaluation: 08/28/18 Time of Evaluation: 10:20 - Subjective Subjective: no acute complaints at present Objective - Vital Signs/Intake and Output Vital Signs (last 24 hours): Temp Pulse Resp BP Pulse Ox 97.7 F 86 20 122/77 98 08/28/18 08:06 08/28/18 08:06 08/28/18 08:06 08/28/18 08:06 08/28/18 08:06 - Medications Medications: Current Medications Acetaminophen (Tylenol 325mg Tab) 325 mg PO Q4 PRN PRN Reason: Pain, Mild (1-3) Cholecalciferol (Vitamin D) 5,000 intlu PO DAILY [facility] Last Admin: 08/28/18 08:58 Dose: 5,000 intlu Docusate Sodium (Colace) 100 mg PO BID [facility] Last Admin: 08/28/18 08:57 Dose: 100 mg Enoxaparin Sodium (Lovenox) 40 mg SC DAILY [facility]; Protocol Ferrous Sulfate (Feosol) 325 mg PO BID [facility] Last Admin: 08/28/18 08:57 Dose: 325 mg Home Med (Etanercept [Enbrel]) 50 mg IM ONCE [facility] Hydrochlorothiazide (Hydrodiuril) 25 mg PO DAILY [facility] Last Admin: 08/28/18 08:58 Dose: 25 mg Loratadine (Claritin) 10 mg PO DAILY [facility] Last Admin: 08/28/18 08:57 Dose: 10 mg Ondansetron HCl (Zofran Tab) 4 mg PO Q6 PRN PRN Reason: Nausea/Vomiting Oxycodone/Acetaminophen (Percocet 5/325 Mg Tab) 2 tab PO Q4 PRN PRN Reason: Pain, severe (8-10) Stop: 08/30/18 20:05 Last Admin: 08/28/18 14:15 Dose: 2 tab Pantoprazole Sodium (Protonix Ec Tab) 40 mg PO DAILY [facility] Last Admin: 08/28/18 08:58 Dose: 40 mg - Labs Labs: 08/25/18 05:30 08/25/18 05:30 PT 12.1 Seconds (9.8-13.1) 08/25/18 05:30 INR 1.1 08/25/18 05:30 APTT 28.1 Seconds (25.6-37.1) 08/25/18 05:30 - Head Exam Head Exam: ATRAUMATIC, NORMAL INSPECTION, NORMOCEPHALIC - Eye Exam Eye Exam: EOMI, Normal appearance, PERRL Pupil Exam: NORMAL ACCOMODATION - ENT Exam ENT Exam: Mucous Membranes Moist, Normal Exam - Neck Exam Neck Exam: Normal Inspection - Respiratory Exam Respiratory Exam: Clear to Ausculation Bilateral, NORMAL BREATHING PATTERN - Cardiovascular Exam Cardiovascular Exam: REGULAR RHYTHM - GI/Abdominal Exam GI & Abdominal Exam: Soft, Normal Bowel Sounds - Rectal Exam Rectal Exam: NORMAL INSPECTION - Exam External exam: NORMAL EXTERNAL EXAM - Extremities Exam Extremities Exam: Full ROM, Normal Capillary Refill - Back Exam Back Exam: NORMAL INSPECTION - Neurological Exam Neurological Exam: Alert, Awake Neuro motor strength exam: Left Lower Extremity: 3 - Psychiatric Exam Psychiatric exam: Normal Affect, Normal Mood - Skin Skin Exam: Dry, Intact, Normal Color Assessment and Plan (1) Acute blood loss anemia Status: Acute (2) Chest wall pain Status: Acute (3) Hip pain Status: Acute (4) Osteoarthritis of left hip Status: Acute (5) Pain management Status: Acute (6) Status post left hip replacement Assessment & Plan: to continue with range of motion, strengthening transfers and gait training, monitor pain and skin Status: Acute (7) Anemia Status: Chronic
--- NOTE | 2018-08-28 15:15 | CP.PCM.PN ---
Subjective - Date & Time of Evaluation Date of Evaluation: 08/26/18 Time of Evaluation: 12:00 - Subjective Subjective: no acute complaints at present Objective - Vital Signs/Intake and Output Vital Signs (last 24 hours): Temp Pulse Resp BP Pulse Ox 97.7 F 86 20 122/77 98 08/28/18 08:06 08/28/18 08:06 08/28/18 08:06 08/28/18 08:06 08/28/18 08:06 - Medications Medications: Current Medications Acetaminophen (Tylenol 325mg Tab) 325 mg PO Q4 PRN PRN Reason: Pain, Mild (1-3) Cholecalciferol (Vitamin D) 5,000 intlu PO DAILY [facility] Last Admin: 08/28/18 08:58 Dose: 5,000 intlu Docusate Sodium (Colace) 100 mg PO BID [facility] Last Admin: 08/28/18 08:57 Dose: 100 mg Enoxaparin Sodium (Lovenox) 40 mg SC DAILY [facility]; Protocol Ferrous Sulfate (Feosol) 325 mg PO BID [facility] Last Admin: 08/28/18 08:57 Dose: 325 mg Home Med (Etanercept [Enbrel]) 50 mg IM ONCE [facility] Hydrochlorothiazide (Hydrodiuril) 25 mg PO DAILY [facility] Last Admin: 08/28/18 08:58 Dose: 25 mg Loratadine (Claritin) 10 mg PO DAILY [facility] Last Admin: 08/28/18 08:57 Dose: 10 mg Ondansetron HCl (Zofran Tab) 4 mg PO Q6 PRN PRN Reason: Nausea/Vomiting Oxycodone/Acetaminophen (Percocet 5/325 Mg Tab) 2 tab PO Q4 PRN PRN Reason: Pain, severe (8-10) Stop: 08/30/18 20:05 Last Admin: 08/28/18 14:15 Dose: 2 tab Pantoprazole Sodium (Protonix Ec Tab) 40 mg PO DAILY [facility] Last Admin: 08/28/18 08:58 Dose: 40 mg - Labs Labs: 08/25/18 05:30 08/25/18 05:30 PT 12.1 Seconds (9.8-13.1) 08/25/18 05:30 INR 1.1 08/25/18 05:30 APTT 28.1 Seconds (25.6-37.1) 08/25/18 05:30 - Head Exam Head Exam: ATRAUMATIC, NORMAL INSPECTION, NORMOCEPHALIC - Eye Exam Eye Exam: EOMI, Normal appearance, PERRL Pupil Exam: NORMAL ACCOMODATION - ENT Exam ENT Exam: Mucous Membranes Moist, Normal Exam - Neck Exam Neck Exam: Normal Inspection - Respiratory Exam Respiratory Exam: Clear to Ausculation Bilateral, NORMAL BREATHING PATTERN - Cardiovascular Exam Cardiovascular Exam: REGULAR RHYTHM - GI/Abdominal Exam GI & Abdominal Exam: Soft, Normal Bowel Sounds - Exam External exam: NORMAL EXTERNAL EXAM - Extremities Exam Extremities Exam: Full ROM, Normal Capillary Refill - Back Exam Back Exam: CVA tenderness (L) - Neurological Exam Neurological Exam: Alert, Awake Neuro motor strength exam: Left Lower Extremity: 3 - Psychiatric Exam Psychiatric exam: Normal Affect, Normal Mood - Skin Skin Exam: Dry, Intact Assessment and Plan (1) Acute blood loss anemia Status: Acute (2) Chest wall pain Status: Acute (3) Hip pain Status: Acute (4) Osteoarthritis of left hip Status: Acute (5) Pain management Status: Acute (6) Status post left hip replacement Assessment & Plan: continue with phsycial, occupational therapy, ortho follow up and PMd Status: Acute (7) Anemia Status: Chronic
[2018-08-29 06:50] LABS: HEMOGLOBIN 9.9 g/dL (12.0-16.0); MEAN CELL VOLUME 89.3 fl (81.0-99.0); MEAN CORPUSCULAR HEMOGLOBIN 30.9 pg (27.0-31.0); MEAN CORPUSCULAR HGB CONC 34.6 g/dL (33.0-37.0); RBC 3.19 Mil/uL (3.80-5.20); WHITE BLOOD COUNT 5.8 K/uL (4.8-10.8)
[2018-08-29 07:48] LABS: BLOOD UREA NITROGEN 16 mg/dl (7-17); CALCIUM 9.6 mg/dL (8.4-10.2); GFR NON-AFRICAN AMERICAN > 60
[2018-08-29] MEDS: Enoxaparin 40 mg Syringe SC SCH (08:48)
[2018-08-29] MEDS: Cholecalciferol 1,000 INTLU TAB PO SCH (08:49)
[2018-08-29] MEDS: Pantoprazole 40 mg EC Tab PO SCH (08:49)
[2018-08-29] MEDS: Oxycodone/Acetaminophen 5/325 mg Tab PO PRN ×3 (10:19→23:05)
--- NOTE | 2018-08-29 13:35 | CP.PCM.PN ---
Subjective - Date & Time of Evaluation Date of Evaluation: 08/29/18 Time of Evaluation: 10:00 - Subjective Subjective: no acute complaints at present Objective - Vital Signs/Intake and Output Vital Signs (last 24 hours): Temp Pulse Resp BP Pulse Ox 97.6 F 88 20 145/77 99 08/29/18 08:00 08/29/18 08:00 08/29/18 08:00 08/29/18 08:00 08/29/18 08:00 - Medications Medications: Current Medications Acetaminophen (Tylenol 325mg Tab) 325 mg PO Q4 PRN PRN Reason: Pain, Mild (1-3) Cholecalciferol (Vitamin D) 5,000 intlu PO DAILY [facility] Last Admin: 08/29/18 08:49 Dose: 5,000 intlu Docusate Sodium (Colace) 100 mg PO BID [facility] Last Admin: 08/29/18 08:47 Dose: 100 mg Enoxaparin Sodium (Lovenox) 40 mg SC DAILY [facility]; Protocol Last Admin: 08/29/18 08:48 Dose: 40 mg Ferrous Sulfate (Feosol) 325 mg PO BID [facility] Last Admin: 08/29/18 08:48 Dose: 325 mg Home Med (Etanercept [Enbrel]) 50 mg IM ONCE [facility] Hydrochlorothiazide (Hydrodiuril) 25 mg PO DAILY [facility] Last Admin: 08/29/18 08:48 Dose: 25 mg Loratadine (Claritin) 10 mg PO DAILY [facility] Last Admin: 08/29/18 08:47 Dose: 10 mg Ondansetron HCl (Zofran Tab) 4 mg PO Q6 PRN PRN Reason: Nausea/Vomiting Oxycodone/Acetaminophen (Percocet 5/325 Mg Tab) 2 tab PO Q4 PRN PRN Reason: Pain, severe (8-10) Stop: 08/30/18 20:05 Last Admin: 08/29/18 10:19 Dose: 2 tab Pantoprazole Sodium (Protonix Ec Tab) 40 mg PO DAILY [facility] Last Admin: 08/29/18 08:49 Dose: 40 mg - Labs Labs: 08/29/18 05:50 08/29/18 05:50 PT 12.1 Seconds (9.8-13.1) 08/25/18 05:30 INR 1.1 08/25/18 05:30 APTT 28.1 Seconds (25.6-37.1) 08/25/18 05:30 - Head Exam Head Exam: ATRAUMATIC, NORMAL INSPECTION, NORMOCEPHALIC - Eye Exam Eye Exam: EOMI, Normal appearance, PERRL Pupil Exam: NORMAL ACCOMODATION - ENT Exam ENT Exam: Mucous Membranes Moist, Normal Exam - Neck Exam Neck Exam: Normal Inspection - Respiratory Exam Respiratory Exam: Clear to Ausculation Bilateral, NORMAL BREATHING PATTERN - Cardiovascular Exam Cardiovascular Exam: REGULAR RHYTHM - GI/Abdominal Exam GI & Abdominal Exam: Soft, Normal Bowel Sounds - Rectal Exam Rectal Exam: NORMAL INSPECTION - Exam External exam: NORMAL EXTERNAL EXAM - Extremities Exam Extremities Exam: Full ROM, Normal Capillary Refill, Normal Inspection - Back Exam Back Exam: NORMAL INSPECTION - Neurological Exam Neurological Exam: Alert, Awake Neuro motor strength exam: Left Lower Extremity: 3 - Psychiatric Exam Psychiatric exam: Normal Affect, Normal Mood - Skin Skin Exam: Dry, Intact Assessment and Plan (1) Acute blood loss anemia Status: Acute (2) Chest wall pain Status: Acute (3) Hip pain Status: Acute (4) Osteoarthritis of left hip Status: Acute (5) Pain management Status: Acute (6) Status post left hip replacement Assessment & Plan: physical, occupational therapy for range of motion, strengthening, transfers and gait training Status: Acute (7) Anemia Status: Chronic
--- NOTE | 2018-08-29 15:05 | CP.PCM.PN ---
Subjective - Date & Time of Evaluation Date of Evaluation: 08/29/18 Time of Evaluation: 15:04 - Subjective Subjective: Patient seen and examined OOB to chair comfortable. Pain well controlled. No new complaints. Objective - Vital Signs/Intake and Output Vital Signs (last 24 hours): Temp Pulse Resp BP Pulse Ox 97.6 F 88 20 145/77 99 08/29/18 08:00 08/29/18 08:00 08/29/18 08:00 08/29/18 08:00 08/29/18 08:00 - Medications Medications: Current Medications Acetaminophen (Tylenol 325mg Tab) 325 mg PO Q4 PRN PRN Reason: Pain, Mild (1-3) Cholecalciferol (Vitamin D) 5,000 intlu PO DAILY [facility] Last Admin: 08/29/18 08:49 Dose: 5,000 intlu Docusate Sodium (Colace) 100 mg PO BID [facility] Last Admin: 08/29/18 08:47 Dose: 100 mg Enoxaparin Sodium (Lovenox) 40 mg SC DAILY [facility]; Protocol Last Admin: 08/29/18 08:48 Dose: 40 mg Ferrous Sulfate (Feosol) 325 mg PO BID [facility] Last Admin: 08/29/18 08:48 Dose: 325 mg Home Med (Etanercept [Enbrel]) 50 mg IM ONCE [facility] Hydrochlorothiazide (Hydrodiuril) 25 mg PO DAILY [facility] Last Admin: 08/29/18 08:48 Dose: 25 mg Loratadine (Claritin) 10 mg PO DAILY [facility] Last Admin: 08/29/18 08:47 Dose: 10 mg Ondansetron HCl (Zofran Tab) 4 mg PO Q6 PRN PRN Reason: Nausea/Vomiting Oxycodone/Acetaminophen (Percocet 5/325 Mg Tab) 2 tab PO Q4 PRN PRN Reason: Pain, severe (8-10) Stop: 08/30/18 20:05 Last Admin: 08/29/18 10:19 Dose: 2 tab Pantoprazole Sodium (Protonix Ec Tab) 40 mg PO DAILY [facility] Last Admin: 08/29/18 08:49 Dose: 40 mg - Labs Labs: 08/29/18 05:50 08/29/18 05:50 PT 12.1 Seconds (9.8-13.1) 08/25/18 05:30 INR 1.1 08/25/18 05:30 APTT 28.1 Seconds (25.6-37.1) 08/25/18 05:30 - Extremities Exam Additional comments: L hip: Dressings CDI no swelling sensation intact SP/DP/TN motor intact EHL/FHL/TA/G/HS/Q pedal pulses intact comps soft NT b/l Assessment and Plan (1) Status post left hip replacement Assessment & Plan: POD #13 s/p L TITO doing well -PT/OT FWB -DVT ppx -orthopedically stable -above d/w Dr. Brock in agreement Status: Acute
[2018-08-30] MEDS: Oxycodone/Acetaminophen 5/325 mg Tab PO PRN ×3 (06:27→18:27)
[2018-08-30] MEDS: Enoxaparin 40 mg Syringe SC SCH (08:21)
[2018-08-30] MEDS: Pantoprazole 40 mg EC Tab PO SCH (08:21)
[2018-08-30] MEDS: Cholecalciferol 1,000 INTLU TAB PO SCH (08:22)
--- NOTE | 2018-08-30 13:31 | CP.PCM.PN ---
Subjective - Date & Time of Evaluation Date of Evaluation: 08/30/18 Time of Evaluation: 13:28 - Subjective Subjective: Patient states she is doing well. No new complaints. Objective - Vital Signs/Intake and Output Vital Signs (last 24 hours): Temp Pulse Resp BP Pulse Ox 98.4 F 101 H 20 108/67 99 08/29/18 20:57 08/29/18 20:57 08/29/18 20:57 08/29/18 20:57 08/29/18 20:57 - Medications Medications: Current Medications Acetaminophen (Tylenol 325mg Tab) 325 mg PO Q4 PRN PRN Reason: Pain, Mild (1-3) Cholecalciferol (Vitamin D) 5,000 intlu PO DAILY [facility] Last Admin: 08/30/18 08:22 Dose: 5,000 intlu Docusate Sodium (Colace) 100 mg PO BID [facility] Last Admin: 08/30/18 08:21 Dose: 100 mg Enoxaparin Sodium (Lovenox) 40 mg SC DAILY [facility]; Protocol Last Admin: 08/30/18 08:21 Dose: 40 mg Ferrous Sulfate (Feosol) 325 mg PO BID [facility] Last Admin: 08/30/18 08:21 Dose: 325 mg Home Med (Etanercept [Enbrel]) 50 mg IM ONCE [facility] Hydrochlorothiazide (Hydrodiuril) 25 mg PO DAILY [facility] Last Admin: 08/30/18 08:21 Dose: 25 mg Loratadine (Claritin) 10 mg PO DAILY [facility] Last Admin: 08/30/18 08:21 Dose: 10 mg Ondansetron HCl (Zofran Tab) 4 mg PO Q6 PRN PRN Reason: Nausea/Vomiting Oxycodone/Acetaminophen (Percocet 5/325 Mg Tab) 2 tab PO Q4 PRN PRN Reason: Pain, severe (8-10) Stop: 08/30/18 20:05 Last Admin: 08/30/18 11:49 Dose: 2 tab Pantoprazole Sodium (Protonix Ec Tab) 40 mg PO DAILY [facility] Last Admin: 08/30/18 08:21 Dose: 40 mg - Labs Labs: 08/29/18 05:50 08/29/18 05:50 PT 12.1 Seconds (9.8-13.1) 08/25/18 05:30 INR 1.1 08/25/18 05:30 APTT 28.1 Seconds (25.6-37.1) 08/25/18 05:30 - Extremities Exam Additional comments: Left hip: incision healed, vianney removed. sutures removed. medial pin site incision open, superficially, with good granulation noted and small amount fibrinous exudate. Cleaned, betadine applied. calves soft NT neg homans Assessment and Plan (1) Osteoarthritis of left hip Assessment & Plan: 15 days w/p THR continue local wound care for pin site, no signs of infection at present, healing secondarily incision and other pin site well healed, sutures removed, steris placed d/w Dr. Brock, agrees with above Status: Acute (2) Acute blood loss anemia Status: Acute
[2018-08-30] MEDS: Silver Sulfadiazine 1% Cream (20 gm) TOP SCH (16:00)
--- NOTE | 2018-08-30 18:12 | CP.PCM.PN ---
Subjective - Date & Time of Evaluation Date of Evaluation: 08/30/18 Time of Evaluation: 14:00 - Subjective Subjective: Patient seen and examined. Claimed she was able to walk outside during therapy without any problem Objective - Vital Signs/Intake and Output Vital Signs (last 24 hours): Temp Pulse Resp BP Pulse Ox 98.4 F 92 H 20 102/60 99 08/30/18 16:24 08/30/18 16:24 08/30/18 16:24 08/30/18 16:24 08/30/18 16:24 - Medications Medications: Current Medications Acetaminophen (Tylenol 325mg Tab) 325 mg PO Q4 PRN PRN Reason: Pain, Mild (1-3) Cholecalciferol (Vitamin D) 5,000 intlu PO DAILY [facility] Last Admin: 08/30/18 08:22 Dose: 5,000 intlu Docusate Sodium (Colace) 100 mg PO BID [facility] Last Admin: 08/30/18 16:39 Dose: 100 mg Enoxaparin Sodium (Lovenox) 40 mg SC DAILY [facility]; Protocol Last Admin: 08/30/18 08:21 Dose: 40 mg Ferrous Sulfate (Feosol) 325 mg PO BID [facility] Last Admin: 08/30/18 16:39 Dose: 325 mg Home Med (Etanercept [Enbrel]) 50 mg IM ONCE [facility] Hydrochlorothiazide (Hydrodiuril) 25 mg PO DAILY [facility] Last Admin: 08/30/18 08:21 Dose: 25 mg Loratadine (Claritin) 10 mg PO DAILY [facility] Last Admin: 08/30/18 08:21 Dose: 10 mg Ondansetron HCl (Zofran Tab) 4 mg PO Q6 PRN PRN Reason: Nausea/Vomiting Oxycodone/Acetaminophen (Percocet 5/325 Mg Tab) 2 tab PO Q4 PRN PRN Reason: Pain, severe (8-10) Stop: 08/30/18 20:05 Last Admin: 08/30/18 11:49 Dose: 2 tab Pantoprazole Sodium (Protonix Ec Tab) 40 mg PO DAILY [facility] Last Admin: 08/30/18 08:21 Dose: 40 mg Silver Sulfadiazine (Silvadene 1% 20 Gm) 1 ea TOP DAILY [facility] Last Admin: 08/30/18 16:00 Dose: 1 units - Labs Labs: 08/29/18 05:50 08/29/18 05:50 PT 12.1 Seconds (9.8-13.1) 08/25/18 05:30 INR 1.1 08/25/18 05:30 APTT 28.1 Seconds (25.6-37.1) 08/25/18 05:30 - Constitutional Appears: No Acute Distress - Head Exam Head Exam: ATRAUMATIC - Eye Exam Eye Exam: absent: Scleral icterus - ENT Exam ENT Exam: Mucous Membranes Moist - Neck Exam Neck Exam: absent: Meningismus - Respiratory Exam Respiratory Exam: absent: Rales, Rhonchi, Wheezes, Respiratory Distress - Cardiovascular Exam Cardiovascular Exam: REGULAR RHYTHM, +S1, +S2 - GI/Abdominal Exam GI & Abdominal Exam: Soft. absent: Tenderness - Rectal Exam Rectal Exam: Deferred - Neurological Exam Neurological Exam: Alert, Oriented x3 - Psychiatric Exam Psychiatric exam: Normal Affect - Skin Skin Exam: Dry, Intact Assessment and Plan - Assessment and Plan (Free Text) Assessment: 68 yo female with history of HTN, Gastritis and Rheumatoid Arthritis had Left THR on 08/15/18 after failing conservative management. She was discharged to [facility] on 08/17/18 but signed out AMA and went to ER complaining of pain. Pain was managed and PT reconsulted. She was transferred to TCU for continuation of therapy. 1. s/p Left THR pain tolerable and only take pain meds before and after therapy continue PT 2. Anemia of acute blood loss Continue ferrous sulfate and monitor 3. Rheumatoid arthritis stable follow up with bi report developer after discharge 4. Hypertension BP controlled continue HCTZ 5. Gastritis continue Protonix 6. DVT prophylaxis continue Lovenox
--- NOTE | 2018-08-31 07:40 | CP.PCM.PN ---
Subjective - Date & Time of Evaluation Date of Evaluation: 08/31/18 Time of Evaluation: 08:21 - Subjective Subjective: Patient states she feels good today. A little stiff as she is just getting up. No new complaints. Objective - Vital Signs/Intake and Output Vital Signs (last 24 hours): Temp Pulse Resp BP Pulse Ox 98.1 F 96 H 20 115/72 98 08/30/18 19:38 08/30/18 19:38 08/30/18 19:38 08/30/18 19:38 08/30/18 19:38 - Medications Medications: Current Medications Acetaminophen (Tylenol 325mg Tab) 325 mg PO Q4 PRN PRN Reason: Pain, Mild (1-3) Cholecalciferol (Vitamin D) 5,000 intlu PO DAILY [facility] Last Admin: 08/30/18 08:22 Dose: 5,000 intlu Docusate Sodium (Colace) 100 mg PO BID [facility] Last Admin: 08/30/18 16:39 Dose: 100 mg Enoxaparin Sodium (Lovenox) 40 mg SC DAILY [facility]; Protocol Last Admin: 08/30/18 08:21 Dose: 40 mg Ferrous Sulfate (Feosol) 325 mg PO BID [facility] Last Admin: 08/30/18 16:39 Dose: 325 mg Home Med (Etanercept [Enbrel]) 50 mg IM ONCE [facility] Hydrochlorothiazide (Hydrodiuril) 25 mg PO DAILY [facility] Last Admin: 08/30/18 08:21 Dose: 25 mg Loratadine (Claritin) 10 mg PO DAILY [facility] Last Admin: 08/30/18 08:21 Dose: 10 mg Ondansetron HCl (Zofran Tab) 4 mg PO Q6 PRN PRN Reason: Nausea/Vomiting Pantoprazole Sodium (Protonix Ec Tab) 40 mg PO DAILY [facility] Last Admin: 08/30/18 08:21 Dose: 40 mg Silver Sulfadiazine (Silvadene 1% 20 Gm) 1 ea TOP DAILY [facility] Last Admin: 08/30/18 16:00 Dose: 1 units - Labs Labs: 08/29/18 05:50 08/29/18 05:50 PT 12.1 Seconds (9.8-13.1) 08/25/18 05:30 INR 1.1 08/25/18 05:30 APTT 28.1 Seconds (25.6-37.1) 08/25/18 05:30 Assessment and Plan (1) Osteoarthritis of left hip Assessment & Plan: 16 days s/p THR continue local wound care for pin site, no signs of infection at present, healing secondarily, silvadene to wound incision and other pin site well healed, sutures removed, steris placed d/w Dr. Brock, agrees with above f/u within [address] Brock office call for appt Status: Acute (2) Acute blood loss anemia Status: Acute
[2018-08-31] MEDS: Cholecalciferol 1,000 INTLU TAB PO SCH (08:20)
[2018-08-31] MEDS: Pantoprazole 40 mg EC Tab PO SCH (08:20)
[2018-08-31] MEDS: Enoxaparin 40 mg Syringe SC SCH (08:20)
[2018-08-31] MEDS: Silver Sulfadiazine 1% Cream (20 gm) TOP SCH (08:21)
[2018-08-31] MEDS ORDERED: Oxycodone/Acetaminophen 5/325 mg Tab PO PRN ×2 (09:39→09:40)
[2018-08-31] MEDS: Oxycodone/Acetaminophen 5/325 mg Tab PO PRN ×3 (10:19→20:20)
--- NOTE | 2018-08-31 13:20 | CP.PCM.PN ---
Subjective - Date & Time of Evaluation Date of Evaluation: 08/31/18 Time of Evaluation: 12:00 - Subjective Subjective: no acute complaints of any hip pain Objective - Vital Signs/Intake and Output Vital Signs (last 24 hours): Temp Pulse Resp BP Pulse Ox 98.2 F 91 H 20 121/68 99 08/31/18 07:44 08/31/18 07:44 08/31/18 07:44 08/31/18 07:44 08/31/18 07:44 - Medications Medications: Current Medications Acetaminophen (Tylenol 325mg Tab) 325 mg PO Q4 PRN PRN Reason: Pain, Mild (1-3) Cholecalciferol (Vitamin D) 5,000 intlu PO DAILY [facility] Last Admin: 08/31/18 08:20 Dose: 5,000 intlu Docusate Sodium (Colace) 100 mg PO BID [facility] Last Admin: 08/31/18 08:19 Dose: 100 mg Enoxaparin Sodium (Lovenox) 40 mg SC DAILY [facility]; Protocol Last Admin: 08/31/18 08:20 Dose: 40 mg Ferrous Sulfate (Feosol) 325 mg PO BID [facility] Last Admin: 08/31/18 08:20 Dose: 325 mg Home Med (Etanercept [Enbrel]) 50 mg IM ONCE [facility] Hydrochlorothiazide (Hydrodiuril) 25 mg PO DAILY [facility] Last Admin: 08/31/18 08:20 Dose: 25 mg Loratadine (Claritin) 10 mg PO DAILY [facility] Last Admin: 08/31/18 08:19 Dose: 10 mg Ondansetron HCl (Zofran Tab) 4 mg PO Q6 PRN PRN Reason: Nausea/Vomiting Oxycodone/Acetaminophen (Percocet 5/325 Mg Tab) 2 tab PO Q4 PRN PRN Reason: Pain, severe (8-10) Stop: 09/03/18 09:39 Last Admin: 08/31/18 10:19 Dose: 2 tab Oxycodone/Acetaminophen (Percocet 5/325 Mg Tab) 1 tab PO Q4 PRN PRN Reason: Pain, moderate (4-7) Stop: 09/03/18 09:40 Oxycodone/Acetaminophen (Percocet 5/325 Mg Tab) 2 tab PO Q6 PRN PRN Reason: Pain, severe (8-10) Stop: 09/03/18 09:41 Pantoprazole Sodium (Protonix Ec Tab) 40 mg PO DAILY [facility] Last Admin: 08/31/18 08:20 Dose: 40 mg Silver Sulfadiazine (Silvadene 1% 20 Gm) 1 ea TOP DAILY [facility] Last Admin: 08/31/18 08:21 Dose: 1 units - Labs Labs: 08/29/18 05:50 08/29/18 05:50 PT 12.1 Seconds (9.8-13.1) 08/25/18 05:30 INR 1.1 08/25/18 05:30 APTT 28.1 Seconds (25.6-37.1) 08/25/18 05:30 - Head Exam Head Exam: ATRAUMATIC, NORMAL INSPECTION, NORMOCEPHALIC - ENT Exam ENT Exam: Mucous Membranes Moist, Normal Exam - Neck Exam Neck Exam: Full ROM, Normal Inspection - Respiratory Exam Respiratory Exam: Clear to Ausculation Bilateral, NORMAL BREATHING PATTERN - Cardiovascular Exam Cardiovascular Exam: REGULAR RHYTHM - GI/Abdominal Exam GI & Abdominal Exam: Soft - Rectal Exam Rectal Exam: NORMAL INSPECTION - Exam External exam: NORMAL EXTERNAL EXAM - Extremities Exam Extremities Exam: Full ROM, Normal Capillary Refill, Normal Inspection - Back Exam Back Exam: NORMAL INSPECTION - Neurological Exam Neurological Exam: Alert, Awake Neuro motor strength exam: Left Lower Extremity: 3 - Psychiatric Exam Psychiatric exam: Normal Affect, Normal Mood - Skin Skin Exam: Dry, Intact Assessment and Plan (1) Acute blood loss anemia Status: Acute (2) Chest wall pain Status: Acute (3) Hip pain Status: Acute (4) Osteoarthritis of left hip Status: Acute (5) Pain management Status: Acute (6) Status post left hip replacement Assessment & Plan: plan for physical, occupational therapy, patient for discharge discussed Dc planning with deacon hernández commode and walker Status: Acute (7) Anemia Status: Chronic
--- NOTE | 2018-08-31 19:37 | CP.PCM.PN ---
Subjective - Date & Time of Evaluation Date of Evaluation: 08/31/18 Time of Evaluation: 15:00 - Subjective Subjective: Patient seen and examined bedside . Feeling better . Hemodynamically stable, afebrile. has been participating well with PT and ambulating . Denies any pain or discomfort . For discharge in AM Objective - Vital Signs/Intake and Output Vital Signs (last 24 hours): Temp Pulse Resp BP Pulse Ox 98.2 F 91 H 20 121/68 99 08/31/18 07:44 08/31/18 07:44 08/31/18 07:44 08/31/18 07:44 08/31/18 07:44 - Medications Medications: Current Medications Acetaminophen (Tylenol 325mg Tab) 325 mg PO Q4 PRN PRN Reason: Pain, Mild (1-3) Cholecalciferol (Vitamin D) 5,000 intlu PO DAILY [facility] Last Admin: 08/31/18 08:20 Dose: 5,000 intlu Docusate Sodium (Colace) 100 mg PO BID [facility] Last Admin: 08/31/18 16:27 Dose: 100 mg Enoxaparin Sodium (Lovenox) 40 mg SC DAILY [facility]; Protocol Last Admin: 08/31/18 08:20 Dose: 40 mg Ferrous Sulfate (Feosol) 325 mg PO BID [facility] Last Admin: 08/31/18 16:27 Dose: 325 mg Home Med (Etanercept [Enbrel]) 50 mg IM ONCE [facility] Hydrochlorothiazide (Hydrodiuril) 25 mg PO DAILY [facility] Last Admin: 08/31/18 08:20 Dose: 25 mg Loratadine (Claritin) 10 mg PO DAILY [facility] Last Admin: 08/31/18 08:19 Dose: 10 mg Ondansetron HCl (Zofran Tab) 4 mg PO Q6 PRN PRN Reason: Nausea/Vomiting Oxycodone/Acetaminophen (Percocet 5/325 Mg Tab) 2 tab PO Q4 PRN PRN Reason: Pain, severe (8-10) Stop: 09/03/18 09:39 Last Admin: 08/31/18 14:27 Dose: 2 tab Oxycodone/Acetaminophen (Percocet 5/325 Mg Tab) 1 tab PO Q4 PRN PRN Reason: Pain, moderate (4-7) Stop: 09/03/18 09:40 Oxycodone/Acetaminophen (Percocet 5/325 Mg Tab) 2 tab PO Q6 PRN PRN Reason: Pain, severe (8-10) Stop: 09/03/18 09:41 Pantoprazole Sodium (Protonix Ec Tab) 40 mg PO DAILY [facility] Last Admin: 08/31/18 08:20 Dose: 40 mg Silver Sulfadiazine (Silvadene 1% 20 Gm) 1 ea TOP DAILY [facility] Last Admin: 08/31/18 08:21 Dose: 1 units - Labs Labs: 08/29/18 05:50 08/29/18 05:50 PT 12.1 Seconds (9.8-13.1) 08/25/18 05:30 INR 1.1 08/25/18 05:30 APTT 28.1 Seconds (25.6-37.1) 08/25/18 05:30 - Constitutional Appears: Non-toxic, No Acute Distress - Head Exam Head Exam: ATRAUMATIC, NORMAL INSPECTION, NORMOCEPHALIC - Eye Exam Eye Exam: EOMI, Normal appearance, PERRL Pupil Exam: NORMAL ACCOMODATION - ENT Exam ENT Exam: Mucous Membranes Moist, Normal Exam - Neck Exam Neck Exam: Full ROM, Normal Inspection - Respiratory Exam Respiratory Exam: Clear to Ausculation Bilateral, NORMAL BREATHING PATTERN. absent: Rales, Rhonchi, Wheezes - Cardiovascular Exam Cardiovascular Exam: REGULAR RHYTHM, RRR, +S1, +S2. absent: JVD - GI/Abdominal Exam GI & Abdominal Exam: Soft, Normal Bowel Sounds. absent: Distended, Guarding, Tenderness, Rebound - Rectal Exam Rectal Exam: Deferred - Extremities Exam Extremities Exam: Full ROM, Normal Capillary Refill. absent: Pedal Edema Additional comments: left hip surgical incision without vianney healed well with small area covered with steristrips proximally - Back Exam Back Exam: NORMAL INSPECTION - Neurological Exam Neurological Exam: Alert, Awake, CN II-XII Intact, Oriented x3 - Psychiatric Exam Psychiatric exam: Normal Affect, Normal Mood - Skin Skin Exam: Dry, Intact, Normal Color, Warm Assessment and Plan - Assessment and Plan (Free Text) Assessment: 68 yo female with history of HTN, Gastritis and Rheumatoid Arthritis had Left THR on 08/15/18 after failing conservative management. She was discharged to [facility] [place] [facility] on 08/17/18 but signed out AMA and went to ER complaining of pain. Pain was managed and PT reconsulted. She was transferred to TCU for continuation of therapy. At present doing well. For d/c in AM 1. s/p Left THR Participating well with PT , pain is controlled and ambulating well Surgical incision healed well and vianney removed Pain management PRN Will d/c in am PT as outpatient 2. Anemia of acute blood loss Continue ferrous sulfate and monitor 3. Rheumatoid arthritis stable follow up with lap checker after discharge 4. Hypertension BP controlled continue HCTZ 5. Gastritis continue Protonix 6. DVT prophylaxis continue Lovenox
--- NOTE | 2018-09-01 01:17 | ED PDOC ---
HPI: General Adult Chief Complaint (Provider): Left hip pain History Per: Patient History/Exam Limitations: no limitations Onset/Duration Of Symptoms: Days Have you had recent travel within the past 21 days to any of the following countries: [place], [place], [place] or [place]?: No Additional Complaint(s): 68 yo female presents for evaluation left hip pain after replacement. PT states she was discharged to the wrong retirement for rehabilitation of recent hip replacement so she went home. Pt states she has also not been taking her anti- coagulant medications. Pt has been taking tylenol for pain. Surgeon: Dr. Brock. <Gladys Barrios - Last Filed: 09/01/18 00:59> <Bina Perez - Last Filed: 09/01/18 21:45> Time Seen by Provider: 08/18/18 10:00 Chief Complaint (Nursing): Hip Pain Past Medical History Reviewed: Historical Data, Nursing Documentation, Vital Signs Vital Signs: Last Vital Signs Temp 98.1 F 08/31/18 20:32 Pulse 94 H 08/31/18 20:32 Resp 20 08/31/18 20:32 BP 138/96 H 08/31/18 20:32 Pulse Ox 97 08/31/18 20:32 - Medical History PMH: Arthritis (general), Colonic Polyps, Gastritis, HTN, Rheumatoid Arthritis Denies: HIV, Chronic Kidney Disease - Surgical History Surgical History: Appendectomy, Endoscopy - Family History Family History: States: No Known Family Hx <Gladys Barrios - Last Filed: 09/01/18 00:59> Vital Signs: Last Vital Signs Temp 97.2 F L 09/01/18 08:42 Pulse 99 H 09/01/18 08:42 Resp 20 09/01/18 08:42 BP 132/83 09/01/18 08:42 Pulse Ox 99 09/01/18 08:42 <Bina Perez - Last Filed: 09/01/18 21:45> - Home Medications Home Medications: Ambulatory Orders Medication Instructions Recorded RX: Etanercept [Enbrel] 50 mg IM ONCE 08/08/18 RX: Cholecalciferol (Vitamin D3) 5,000 unit PO DAILY 08/15/18 [Vitamin D3] RX: Loratadine [Claritin] 10 mg PO DAILY 08/15/18 RX: PARoxetine [Paxil] 10 mg PO DAILY 08/15/18 RX: Cholecalciferol [Vitamin D 5,000 intlu PO DAILY tab 08/20/18 1000 IU] RX: Docusate [Colace] 100 mg PO BID cap 08/20/18 RX: Ferrous Sulfate [Feosol] 325 mg PO BID tab 08/20/18 RX: Aspirin 81 mg PO DAILY #30 tab.chew 09/01/18 RX: Hydrochlorothiazide [Microzide] 25 mg PO DAILY #30 capsule 09/01/18 RX: oxyCODONE/Acetaminophen 2 ea PO Q4 PRN #30 tab 09/01/18 [Percocet 5/325 mg Tab] - Allergies Allergies/Adverse Reactions: Allergies Allergy/AdvReac Type Severity Reaction Status Date / Time Penicillins Allergy RASH Verified 08/21/18 15:52 Review of Systems ROS Statement: Except As Marked, All Systems Reviewed And Found Negative Constitutional: Negative for: Fever, Chills Musculoskeletal: Positive for: Other (Left hip pain) Skin: Positive for: Other <Gladys Barrios - Last Filed: 09/01/18 00:59> Physical Exam - Reviewed Nursing Documentation Reviewed: Yes Vital Signs Reviewed: Yes - Physical Exam Appears: Positive for: Well, Non-toxic, No Acute Distress Head Exam: Positive for: ATRAUMATIC, NORMAL INSPECTION, NORMOCEPHALIC Skin: Positive for: Normal Color, Warm, DRY Eye Exam: Positive for: Normal appearance ENT: Positive for: Normal ENT Inspection Neck: Positive for: Normal, Painless ROM Cardiovascular/Chest: Positive for: Regular Rate, Rhythm Respiratory: Positive for: Normal Breath Sounds. Negative for: Accessory Muscle Use, Respiratory Distress Back: Positive for: Normal Inspection Extremity: Positive for: Other ((+) vianney on left hip, no surrounding erythema or edema, no drainage, well healing ). Negative for: Normal ROM Neurologic/Psych: Positive for: Alert, Oriented <Gladys Barrios - Last Filed: 09/01/18 00:59> - Laboratory Results Result Diagrams: 08/29/18 05:50 08/29/18 05:50 - ECG O2 Sat by Pulse Oximetry: 97 Pulse Ox Interpretation: Normal <Gladys Barrios - Last Filed: 09/01/18 00:59> - Laboratory Results Result Diagrams: 08/29/18 05:50 08/29/18 05:50 <Bina Perez - Last Filed: 09/01/18 21:45> Medical Decision Making Medical Decision Making: Pt to be admitted for hip pain and to be placed on anticoagulation. <Gladys Barrios - Last Filed: 09/01/18 00:59> Disposition - Patient ED Disposition Is Patient to be Admitted: No - Disposition Disposition Time: 22:53 <Gladys Barrios - Last Filed: 09/01/18 00:59> <Bina Perez - Last Filed: 09/01/18 21:45> - Disposition Condition: STABLE - PA / SIDEROGRAPHER / Resident Statement /DO has reviewed & agrees with the documentation as recorded. <Bina Perez - Last Filed: 09/01/18 21:45>
[2018-09-01 08:42] VITALS: BP 132/83; PULSE 99; TEMP 97.2; O2SAT 99
[2018-09-01] MEDS: Cholecalciferol 1,000 INTLU TAB PO SCH (08:57)
[2018-09-01] MEDS: Silver Sulfadiazine 1% Cream (20 gm) TOP SCH (08:57)
[2018-09-01] MEDS: Enoxaparin 40 mg Syringe SC SCH (08:58)
[2018-09-01] MEDS: Pantoprazole 40 mg EC Tab PO SCH (08:58)
--- NOTE | 2018-09-01 11:13 | CP.PCM.DIS ---
Provider - Provider Date of Admission: 08/21/18 15:42 Attending physician: Zaki Ventura MD Consults: Dr Vinod Bergeron Time Spent in preparation of Discharge (in minutes): 25 Diagnosis - Discharge Diagnosis (1) Status post left hip replacement Status: Acute Comment: pain more tolerable and responsive to Percocet. continue PT as outpatient (2) Acute blood loss anemia Status: Acute Comment: Hgb: 9.9. 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 continue HCTZ Hospital Course - Lab Results Lab Results: Most Recent Lab Values WBC 5.8 K/uL (4.8-10.8) 08/29/18 05:50 RBC 3.19 Mil/uL (3.80-5.20) L 08/29/18 05:50 Hgb 9.9 g/dL (12.0-16.0) L 08/29/18 05:50 Hct 28.5 % (34.0-47.0) L 08/29/18 05:50 MCV 89.3 fl (81.0-99.0) 08/29/18 05:50 MCH 30.9 pg (27.0-31.0) 08/29/18 05:50 MCHC 34.6 g/dL (33.0-37.0) 08/29/18 05:50 RDW 14.0 % (11.5-14.5) 08/29/18 05:50 Plt Count 375 K/uL (130-400) 08/29/18 05:50 PT 12.1 Seconds (9.8-13.1) 08/25/18 05:30 INR 1.1 08/25/18 05:30 APTT 28.1 Seconds (25.6-37.1) 08/25/18 05:30 Sodium 139 mmol/l (132-148) 08/29/18 05:50 Potassium 4.0 MMOL/L (3.6-5.0) 08/29/18 05:50 Chloride 101 mmol/L (98-107) 08/29/18 05:50 Carbon Dioxide 30 mmol/L (22-30) 08/29/18 05:50 Anion Gap 12 (10-20) 08/29/18 05:50 BUN 16 mg/dl (7-17) 08/29/18 05:50 Creatinine 0.9 mg/dl (0.7-1.2) 08/29/18 05:50 Est GFR ( Amer) > 60 08/29/18 05:50 Est GFR (Non-Af Amer) > 60 08/29/18 05:50 Random Glucose 103 mg/dL (65-105) 08/29/18 05:50 Calcium 9.6 mg/dL (8.4-10.2) 08/29/18 05:50 Total Bilirubin 0.3 mg/dl (0.2-1.3) 08/25/18 05:30 AST 56 U/L (14-36) H D 08/25/18 05:30 ALT 45 U/L (9-52) 08/25/18 05:30 Alkaline Phosphatase 109 U/L (38-126) 08/25/18 05:30 Total Protein 7.1 G/DL (6.3-8.2) 08/25/18 05:30 Albumin 3.4 g/dL (3.5-5.0) L 08/25/18 05:30 Globulin 3.8 gm/dL (2.2-3.9) 08/25/18 05:30 Albumin/Globulin Ratio 0.9 (1.0-2.1) L 08/25/18 05:30 - Hospital Course Hospital Course: 68 yo female with history of HTN, Gastritis and Rheumatoid Arthritis had Left THR on 08/15/18 after failing conservative management. She was discharged to [facility] on 08/17/18 but signed out AMA and went to ER complaining of pain. Pain was managed and PT re-consulted. She was transferred to TCU for continuation of therapy and pain management. Patient now ready for discharge and would continue therapy as outpatient. Discharge Exam - Head Exam Head Exam: ATRAUMATIC, NORMAL INSPECTION, NORMOCEPHALIC - Eye Exam Eye Exam: absent: Scleral icterus - ENT Exam ENT Exam: Mucous Membranes Moist - Respiratory Exam Respiratory Exam: absent: Rales, Rhonchi, Wheezes, Respiratory Distress - Cardiovascular Exam Cardiovascular Exam: REGULAR RHYTHM, +S1, +S2 - GI/Abdominal Exam GI & Abdominal Exam: Soft. absent: Tenderness - Rectal Exam Rectal Exam: Deferred - Neurological Exam Neurological exam: Alert, Oriented x3 - Psychiatric Exam Psychiatric exam: Normal Affect - Skin Skin Exam: Dry, Intact Discharge Plan - Discharge Medications Prescriptions: RX: Aspirin 81 mg PO DAILY #30 tab.chew RX: Hydrochlorothiazide [Microzide] 25 mg PO DAILY #30 capsule RX: oxyCODONE/Acetaminophen [Percocet 5/325 mg Tab] 2 ea PO Q4 PRN #30 tab PRN Reason: Pain, Moderate (4-7) - Follow Up Plan Condition: STABLE Disposition: HOME/ ROUTINE Instructions: Anterior Hip Replacement (DC)
== END 2018-09-01 13:15 | disposition home or self-care (01) | DRG 560 ==
LOC: H.TCU 15:42
PROC: F07Z9FZ Gait Training/Functional Ambulation Treatment using Assistive, Adaptive, Supportive or Protective Equipment (ICD-10-PCS; principal; 2018-08-21)
PROC: F07M6FZ Therapeutic Exercise Treatment of Musculoskeletal System - Whole Body using Assistive, Adaptive, Supportive or Protective Equipment (ICD-10-PCS; 2018-08-21)
DX: Z47.1 Aftercare following joint replacement surgery (principal); D62 Acute posthemorrhagic anemia; Z96.642 Presence of left artificial hip joint; Z86.010 Personal history of colon polyps; R07.89 Other chest pain; I10 Essential (primary) hypertension; K29.70 Gastritis, unspecified, without bleeding; M06.9 Rheumatoid arthritis, unspecified; M16.12 Unilateral primary osteoarthritis, left hip

== ENCOUNTER 2018-11-29 05:50 | Inpatient (IN) | payer BC, MEDICARE ==
[2018-11-19 10:27] VITALS: BMI 33.9
[2018-11-29] MEDS ORDERED: Etomidate 20 mg/10ml Inj IV ONE (07:10)
[2018-11-29] MEDS ORDERED: Propofol 10 mg/ml Inj (20 ML) ONE (07:11)
[2018-11-29] MEDS ORDERED: Phenylephrine 10 mg/ml Inj ONE ×2 (07:11→09:50)
[2018-11-29] MEDS ORDERED: Lidocaine 1% 5ml Abboject ONE (07:11)
--- NOTE | 2018-11-29 07:16 | CP.PCM.CON ---
History of Present Illness - History of Present Illness History of Present Illness: Orthopedic consultation Dr. Brock 68F complains of right hip DJD failed conservative mgmt and elected for THR. Patient underwent successful left THR in Jul 2018. PMD: Dr. Carney PMH: RA, last took enbrel in October 2018 PSH: as above Cardiac clearance Dr. Pedro on chart no history bleeding/clotting disorder, no dysuria, no history of stents/seizure/CVA Review of Systems - Review of Systems All systems: reviewed and no additional remarkable complaints except - Musculoskeletal Musculoskeletal: As Per HPI Past Patient History - Past Medical History & Family History Past Medical History?: Yes Past Family History: Reviewed and not pertinent - Past Social History Smoking Status: Never Smoked - CARDIAC Hx Cardiac Disorders: No - PULMONARY Hx Respiratory Disorders: No - NEUROLOGICAL Hx Neurological Disorder: No - HEENT Hx HEENT Problems: No - RENAL Hx Chronic Kidney Disease: No - ENDOCRINE/METABOLIC Hx Endocrine Disorders: No - HEMATOLOGICAL/ONCOLOGICAL Hx Blood Disorders: No - INTEGUMENTARY Hx Dermatological Problems: No - MUSCULOSKELETAL/RHEUMATOLOGICAL Hx Degenerative Joint Disease: Yes Hx Rheumatoid Arthritis: Yes - GASTROINTESTINAL Hx Gastrointestinal Disorders: No - GENITOURINARY/GYNECOLOGICAL Hx Genitourinary Disorders: No - PSYCHIATRIC Hx Psychophysiologic Disorder: No - SURGICAL HISTORY Hx Appendectomy: Yes Hx Arthroscopy: Yes (Both knees 2008) Hx Hysterectomy: Yes (2017) Hx Joint Replacement: Yes (Left total hip replacement 08/15/18) Other/Comment: x4 - ANESTHESIA Hx Anesthesia: Yes Hx Anesthesia Reactions: No Hx Malignant Hyperthermia: No Has any member of the family had a problem w/ anesthesia?: No Meds Allergies/Adverse Reactions: Allergies Allergy/AdvReac Type Severity Reaction Status Date / Time Penicillins Allergy Intermediate RASH Verified 11/29/18 07:51 Physical Exam - Constitutional Appears: Well, No Acute Distress - Head Exam Head Exam: ATRAUMATIC - Neck Exam Neck exam: Positive for: Full Rom, Normal Inspection Additional comments: NT - Cardiovascular Exam Cardiovascular Exam: REGULAR RHYTHM - Extremities Exam Additional comments: RLE +ROM ankle/toes, sensation intact, +DP/PT pulses, calves soft NT neg homans - Neurological Exam Neurological exam: Alert, Oriented x3 - Psychiatric Exam Psychiatric exam: Normal Affect, Normal Mood - Skin Skin Exam: Dry, Intact, Normal Color, Warm Results - Labs Result Diagrams: 11/29/18 07:27 - Impressions Impression: labs on chart, reviewed Assessment & Plan (1) Primary osteoarthritis of right hip Assessment and Plan: NPO for OR T&C d/w Dr. Brock agrees with above Status: Acute (2) Rheumatoid arthritis Status: Chronic
[2018-11-29] MEDS ORDERED: Thrombin Topical 5,000 Int Units Spray Kit ONE (07:22)
[2018-11-29] MEDS ORDERED: Bacitracin Ointment 30 GM TUBE ONE (07:22)
--- NOTE | 2018-11-29 07:28 | CP.PCM.HP ---
History of Present Illness - History of Present Illness History of Present Illness: 68 y/o Female with PMH of HTN, gastritis, RH arthritis with mitral regurgitation was seen and evaluated in Same day Surgery for elective Right Hip Replacement Surgery today with Dr. Jain. Patient reports her hip pain has been present for the past year, it is exacerbated by walking and activity and alleviated by rest. Patient reports seeing pain management with no relief. Patient denies any falls or trauma. Patient reports moderate activity at home. Patient reports she is s/p Left Hip replacement from July of 2018. Post left hip replacement, patient was admitted to hospital, discharged to a rehab facility, however, patient and family decided patient would not stay at [facility] and was discharged home. Patient lives in a home with stairs. Patient does not use a cane or walker for ambulation. Patient reports shortness of breath with exertion. Patient denies fever, nausea, vomiting, shortness of breath, abdominal pain, dysuria, polyuria or chest pain at this time. Patient's NPO status was confirmed. Patient's and daughter are present at bedside. 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 absent: Chest Pain, Chest Pain at Rest, Orthopnea, Palpitations - Respiratory Respiratory: Dyspnea on Exertion. absent: Cough, Wheezing - Gastrointestinal Gastrointestinal: absent: Abdominal Pain, Diarrhea, Nausea, Vomiting - Musculoskeletal Musculoskeletal: absent: Limited Range of Motion, Muscle Weakness, Numbness, Tingling - Integumentary Integumentary: absent: Dry Skin, Wounds - Neurological Neurological: absent: Dizziness, Numbness, Syncope, Weakness Past Patient History - Past Medical History & Family History Past Medical History?: Yes Past Family History: Reviewed and not pertinent - Past Social History Smoking Status: Never Smoked - CARDIAC Hx Cardiac Disorders: No - PULMONARY Hx Respiratory Disorders: No - NEUROLOGICAL Hx Neurological Disorder: No - HEENT Hx HEENT Problems: No - RENAL Hx Chronic Kidney Disease: No - ENDOCRINE/METABOLIC Hx Endocrine Disorders: No - HEMATOLOGICAL/ONCOLOGICAL Hx Blood Disorders: No - INTEGUMENTARY Hx Dermatological Problems: No - MUSCULOSKELETAL/RHEUMATOLOGICAL Hx Degenerative Joint Disease: Yes Hx Rheumatoid Arthritis: Yes - GASTROINTESTINAL Hx Gastrointestinal Disorders: No - GENITOURINARY/GYNECOLOGICAL Hx Genitourinary Disorders: No - PSYCHIATRIC Hx Psychophysiologic Disorder: No - SURGICAL HISTORY Hx Appendectomy: Yes Hx Arthroscopy: Yes (Both knees 2008) Hx Hysterectomy: Yes (2016) Hx Joint Replacement: Yes (Left total hip replacement 08/15/18) Other/Comment: x4 - ANESTHESIA Hx Anesthesia: Yes Hx Anesthesia Reactions: No Hx Malignant Hyperthermia: No Has any member of the family had a problem w/ anesthesia?: No Meds Allergies/Adverse Reactions: Allergies Allergy/AdvReac Type Severity Reaction Status Date / Time Penicillins Allergy Intermediate RASH Verified 11/29/18 07:51 Physical Exam - Constitutional Appears: Well, Non-toxic, No Acute Distress - Head Exam Head Exam: ATRAUMATIC, NORMOCEPHALIC - Eye Exam Eye Exam: Normal appearance, PERRL - ENT Exam ENT Exam: Mucous Membranes Moist, Normal Exam - Respiratory Exam Respiratory Exam: Clear to Auscultation Bilateral, NORMAL BREATHING PATTERN. absent: Decreased Breath Sounds, Rales, Wheezes - Cardiovascular Exam Cardiovascular Exam: REGULAR RHYTHM, +S1 - GI/Abdominal Exam GI & Abdominal Exam: Normal Bowel Sounds, Soft. absent: Distended, Firm, Rebound, Tenderness - Rectal Exam Rectal Exam: Deferred - Extremities Exam Extremities exam: Negative for: calf tenderness Additional comments: painful right hip range of motion - Back Exam Back exam: absent: tenderness - Neurological Exam Neurological exam: Alert, Oriented x3 - Psychiatric Exam Psychiatric exam: Normal Affect, Normal Mood Results - Labs Result Diagrams: 11/29/18 07:27 Assessment & Plan - Assessment and Plan (Free Text) Assessment: 68 y/o female patient seen and evaluated in [facility] for Right Hip replacement today with Dr. Jain Plan: Elective Total RIGHT hip replacement - medical clearance in chart - Pain management - OT/PT - F/U CBC/BMP - F/U Urine Culture - Abx as per Orthopedics HTN - asymptomatic, chronic - HCTZ 25 mg daily - continue home medication Rheumatoid Arthritis - chronic arthritis - Embrel Injection once/week - Continue home medication DVT Prophylaxis - Lovenox 40
[2018-11-29] MEDS ORDERED: Tranexamic Acid 1,000 MG in Sodium Chloride 0.9% 100 ML IVPB SCH (07:30)
[2018-11-29 07:43] LABS: BASO % 0.9 % (0.0-2.0); EOS # 0.1 K/uL (0.0-0.7); EOS % 2.4 % (0.0-4.0); HEMOGLOBIN 12.2 g/dL (12.0-16.0); LYMPH # 1.9 K/uL (1.0-4.3); LYMPH % 38.6 % (20.0-40.0); MEAN CELL VOLUME 84.2 fl (81.0-99.0); MEAN CORPUSCULAR HGB CONC 33.3 g/dL (33.0-37.0); MEAN PLATELET VOLUME 9.1 fl (7.2-11.7); MONO # 0.4 K/uL (0.0-0.8); NEUT # 2.5 K/uL (1.8-7.0); NEUT % 50.1 % (50.0-75.0); NRBC % 0.1 % (0.0-0.0); RBC 4.35 Mil/uL (3.80-5.20); RED CELL DISTRIBUTION WIDTH 14.2 % (11.5-14.5)
[2018-11-29] MEDS ORDERED: Morphine 1 mg/ml preservative-free Inj(Duramorph) ONE (07:54)
[2018-11-29] MEDS ORDERED: EPINEPHrine 1 mg/ml (1:1000) Inj ONE (08:18)
[2018-11-29] MEDS ORDERED: Rocuronium 10 mg/ml (5 ml) ONE ×3 (08:34→11:29)
[2018-11-29] MEDS ORDERED: Esmolol 100 mg/10ml Inj IV ONE (08:34)
[2018-11-29] MEDS ORDERED: ePHEDrine 50 mg/ml Inj ONE (08:37)
[2018-11-29 08:54] LABS: SQUAMOUS EPITHIAL < 1 /hpf (0-5); URINE BILIRUBIN NEGATIVE (NEGATIVE); URINE BLOOD SMALL (NEGATIVE); URINE CLARITY SLIGHTY-CLOUDY (Clear); URINE COLOR YELLOW (YELLOW); URINE GLUCOSE (UA) NEG (NEGATIVE); URINE HYALINE CAST 0-2 /hpf (0-2); URINE LEUKOCYTE ESTERASE NEG Leu/uL (Negative); URINE PROTEIN NEGATIVE (NEGATIVE); URINE UROBILINOGEN 0.2-1.0 mg/dL (0.2-1.0)
[2018-11-29] MEDS ORDERED: Lactated Ringer's 1,000 ML IV ONE ×3 (09:35→09:36)
[2018-11-29] MEDS ORDERED: Dexamethasone 4 mg/1 ml ONE (09:45)
[2018-11-29] MEDS ORDERED: Sodium Chloride 0.9% 500 ML IV ONE (11:15)
[2018-11-29] MEDS ORDERED: Neostigmine 1:1000 (1 mg/ml) Inj ONE (11:37)
[2018-11-29] MEDS ORDERED: Oxycodone/Acetaminophen 5/325 mg Tab PO PRN (12:07)
[2018-11-29] MEDS ORDERED: Lactated Ringer's 1,000 ML IV SCH (12:15)
--- NOTE | 2018-11-29 13:14 | PCM.SURG1 ---
Surgeon's Initial Post Op Note - Surgeon's Notes Surgeon: Vinod Hogshead Builder: DAVID Waggoner 2nd assist B Stock Type of Anesthesia: General Endo, Spinal Anesthesia Administered By: DR Connor Pre-Operative Diagnosis: Inflammatory arthtrits R hip. degenative arthrits r hip. synvoitis r hip Operative Findings: as above. iliopsoaos tendon contracture. synvoits hip joint Post-Operative Diagnosis: as above Operation Performed: R THR- anterior approach. . arthrotomy/synovectomy. release iliopsoas tendon. autopgraft bone graft acetabulum/femur Specimen/Specimens Removed: bone/synovium/ tendon Estimated Blood Loss: EBL {In ML}: 200 Blood Products Given: PRBC Drains Used: Wound Vac Post-Op Condition: Fair Date of Surgery/Procedure: 11/29/18 Time of Surgery/Procedure: 09:25 (time i8n mroom/anacaitlyn indcution time 750)
--- NOTE | 2018-11-29 13:43 | RAD ---
PROCEDURE: Right Hip Radiographs. HISTORY: s/p R TITO COMPARISON: None. FINDINGS: BONES: Satisfactory parents of right hip arthroplasty components. JOINTS: Normal. SOFT TISSUES: Postoperative changes in the soft tissues at the surgical site. OTHER FINDINGS: None. IMPRESSION: Satisfactory postoperative status.
--- NOTE | 2018-11-29 14:04 | RAD ---
Date of service: 11/29/2018 PROCEDURE: Fluoroscopic assistance in excess of 1 hour. HISTORY: RIGHT HIP COMPARISON: None TECHNIQUE: Standard protocol for this study/examination. FINDINGS: Total fluoroscopic time (continuous mode) utilized during the procedure 13.0 seconds. IMPRESSION: Submitted images from the current procedure: 8.0.
[2018-11-29] MEDS: HYDROmorphone 0.5 mg/0.5 ml ISec IVP PRN ×2 (14:20→14:40)
[2018-11-29] MEDS: Lactated Ringer's 1,000 ML IV SCH ×2 (16:00→23:12)
[2018-11-29] MEDS: Clindamycin 600mg/50ml D5W 600 MG/50 ML VIAL IVPB SCH (17:36)
[2018-11-29] MEDS: Oxycodone/Acetaminophen 5/325 mg Tab PO PRN (20:03)
[2018-11-29] MEDS ORDERED: Docusate-Senna 50 mg-8.6 mg Tab PO SCH (22:00)
[2018-11-30] MEDS: Clindamycin 600mg/50ml D5W 600 MG/50 ML VIAL IVPB SCH (01:13)
[2018-11-30] MEDS: Morphine 4 MG/ML VIAL IVP PRN ×2 (01:22→12:10)
[2018-11-30] MEDS ORDERED: Povidone Iodine Topical 10% Sol ONE (01:32)
[2018-11-30] MEDS: Oxycodone/Acetaminophen 5/325 mg Tab PO PRN ×2 (02:43→08:52)
[2018-11-30 03:52] VITALS: TEMP 98.3
[2018-11-30 06:32] LABS: HEMOGLOBIN 10.7 g/dL (12.0-16.0); MEAN CELL VOLUME 87.5 fl (81.0-99.0); MEAN CORPUSCULAR HEMOGLOBIN 28.7 pg (27.0-31.0); MEAN CORPUSCULAR HGB CONC 32.8 g/dL (33.0-37.0); RBC 3.73 Mil/uL (3.80-5.20); RED CELL DISTRIBUTION WIDTH 14.3 % (11.5-14.5)
[2018-11-30 06:43] LABS: BLOOD UREA NITROGEN 22 mg/dl (7-17); CALCIUM 8.8 mg/dL (8.4-10.2); GFR NON-AFRICAN AMERICAN > 60
[2018-11-30 08:47] VITALS: BP 95/63; RESP 22
[2018-11-30] MEDS ORDERED: Enoxaparin 40 mg Syringe SC SCH (09:00)
[2018-11-30 11:09] VITALS: PULSE 98; O2SAT 97
--- NOTE | 2018-11-30 11:19 | CP.PCM.PN ---
Subjective - Date & Time of Evaluation Date of Evaluation: 11/30/18 Time of Evaluation: 11:17 - Subjective Subjective: Patient seen with physical therapy. She complains of some stiffness to her right hip and thigh, but says she really doesn't have any pain. Says the percocet controls the pain well. Denies Cp/SOb/dizziness/numbness/tinglging. Objective - Vital Signs/Intake and Output Vital Signs (last 24 hours): Temp Pulse Resp BP Pulse Ox 98.3 F 98 H 22 95/63 L 97 11/30/18 08:47 11/30/18 10:44 11/30/18 08:47 11/30/18 08:47 11/30/18 10:44 - Medications Medications: Current Medications Acetaminophen (Tylenol 325mg Tab) 650 mg PO Q4 PRN PRN Reason: Fever 101 degrees fahrenheit Enoxaparin Sodium (Lovenox) 40 mg SC DAILY [facility]; Protocol Last Admin: 11/30/18 08:54 Dose: 40 mg Ferrous Sulfate (Feosol) 325 mg PO BID [facility] Last Admin: 11/30/18 08:54 Dose: 325 mg Folic Acid (Folic Acid) 1 mg PO DAILY [facility] Last Admin: 11/30/18 08:54 Dose: 1 mg Hydrochlorothiazide (Hydrodiuril) 25 mg PO DAILY [facility] Last Admin: 11/30/18 08:54 Dose: 25 mg Lactated Ringer's (Lactated Ringer's) 1,000 mls @ 100 mls/hr IV .Q10H [facility] Last Admin: 11/29/18 23:12 Dose: 100 mls/hr Morphine Sulfate (Morphine) 2 mg IVP Q4 PRN PRN Reason: Pain, severe (8-10) Last Admin: 11/30/18 01:22 Dose: 2 mg Ondansetron HCl (Zofran Inj) 4 mg IVP ONCE PRN PRN Reason: Nausea/Vomiting Last Admin: 11/29/18 20:58 Dose: 4 mg Oxycodone/Acetaminophen (Percocet 5/325 Mg Tab) 2 tab PO Q4 PRN PRN Reason: Pain, moderate (4-7) Stop: 12/02/18 12:08 Last Admin: 11/30/18 08:52 Dose: 2 tab Oxycodone/Acetaminophen (Percocet 5/325 Mg Tab) 1 tab PO Q4 PRN PRN Reason: Pain, Mild (1-3) Stop: 12/02/18 12:08 Senna/Docusate Sodium (Senokot S 50 Mg-8.6 Mg) 2 tab PO HS [facility] Last Admin: 11/29/18 23:11 Dose: 2 tab - Labs Labs: 11/30/18 05:15 11/30/18 05:15 - Extremities Exam Additional comments: right hip: jessica intact, small amount sang drainage on dressing. mild expected thigh swelling. +ROM ankle/toes, sensation intact +DP/PT pulses calves soft NT neg homans Assessment and Plan (1) Primary osteoarthritis of right hip Assessment & Plan: POD#1 s/p right THR anterior progressing well ortho stable for TCU transfer labs in am, monitor h/h, s/p 1uPRBC intraop d/w Dr. Brock, agrees with above Status: Acute (2) Rheumatoid arthritis Status: Chronic (3) Acute blood loss anemia Assessment & Plan: s/p 1uPRBC intraop, f/u labs in am Status: Acute
--- NOTE | 2018-11-30 12:07 | CP.PCM.DIS ---
Provider - Provider Date of Admission: 11/29/18 12:07 Attending physician: Marta Zapata MD Consults: 11/29/18 12:08 Case Management Referral Routine Comment: Physician Instructions: Reason For Exam: Reason for Referral: Discharge Planning 11/29/18 18:50 Orthopedic Consult Routine Comment: Consulting Provider: Giacomo Brock III Consulting Physician: Giacomo Brock III Reason for Consult: s/p right THR 11/30/18 02:00 Nursing Referral for Wound Care Routine Comment: Physician Instructions: Reason For Exam: kevin scale protocol Time Spent in preparation of Discharge (in minutes): 30 Diagnosis - Discharge Diagnosis (1) Status post right hip replacement Status: Acute Hospital Course - Lab Results Lab Results: Most Recent Lab Values WBC 8.0 K/uL (4.8-10.8) D 11/30/18 05:15 RBC 3.73 Mil/uL (3.80-5.20) L 11/30/18 05:15 Hgb 10.7 g/dL (12.0-16.0) L 11/30/18 05:15 Hct 32.7 % (34.0-47.0) L 11/30/18 05:15 MCV 87.5 fl (81.0-99.0) D 11/30/18 05:15 MCH 28.7 pg (27.0-31.0) 11/30/18 05:15 MCHC 32.8 g/dL (33.0-37.0) L 11/30/18 05:15 RDW 14.3 % (11.5-14.5) 11/30/18 05:15 Plt Count 164 K/uL (130-400) 11/30/18 05:15 MPV 9.1 fl (7.2-11.7) 11/29/18 07:27 Neut % (Auto) 50.1 % (50.0-75.0) 11/29/18 07:27 Lymph % (Auto) 38.6 % (20.0-40.0) 11/29/18 07:27 Dillon % (Auto) 8.0 % (0.0-10.0) 11/29/18 07:27 Eos % (Auto) 2.4 % (0.0-4.0) 11/29/18 07:27 Baso % (Auto) 0.9 % (0.0-2.0) 11/29/18 07:27 Neut # (Auto) 2.5 K/uL (1.8-7.0) 11/29/18 07:27 Lymph # (Auto) 1.9 K/uL (1.0-4.3) 11/29/18 07:27 Dillon # (Auto) 0.4 K/uL (0.0-0.8) 11/29/18 07:27 Eos # (Auto) 0.1 K/uL (0.0-0.7) 11/29/18 07:27 Baso # (Auto) 0.0 K/uL (0.0-0.2) 11/29/18 07:27 Sodium 138 mmol/l (132-148) 11/30/18 05:15 Potassium 4.2 MMOL/L (3.6-5.0) 11/30/18 05:15 Chloride 101 mmol/L (98-107) 11/30/18 05:15 Carbon Dioxide 27 mmol/L (22-30) 11/30/18 05:15 Anion Gap 14 (10-20) 11/30/18 05:15 BUN 22 mg/dl (7-17) H 11/30/18 05:15 Creatinine 0.8 mg/dl (0.7-1.2) 11/30/18 05:15 Est GFR ( Amer) > 60 11/30/18 05:15 Est GFR (Non-Af Amer) > 60 11/30/18 05:15 POC Glucose (mg/dL) 170 mg/dL (65-110) H 11/29/18 15:55 Random Glucose 137 mg/dL (65-105) H 11/30/18 05:15 Calcium 8.8 mg/dL (8.4-10.2) 11/30/18 05:15 Urine Color Yellow (YELLOW) 11/29/18 07:35 Urine Clarity Slighty-cloudy (Clear) 11/29/18 07:35 Urine pH 5.0 (5.0-8.0) 11/29/18 07:35 Ur Specific [place] 1.018 (1.003-1.030) 11/29/18 07:35 Urine Protein Negative mg/dL (NEGATIVE) 11/29/18 07:35 Urine Glucose (UA) Neg mg/dL (NEGATIVE) 11/29/18 07:35 Urine Ketones Negative mg/dL (NEGATIVE) 11/29/18 07:35 Urine Blood Small (NEGATIVE) 11/29/18 07:35 Urine Nitrate Negative (NEGATIVE) 11/29/18 07:35 Urine Bilirubin Negative (NEGATIVE) 11/29/18 07:35 Urine Urobilinogen 0.2-1.0 mg/dL (0.2-1.0) 11/29/18 07:35 Ur Leukocyte Esterase Neg Tavia/uL (Negative) 11/29/18 07:35 Urine RBC (Auto) 3 /hpf (0-3) 11/29/18 07:35 Urine Microscopic WBC < 1 /hpf (0-5) 11/29/18 07:35 Ur Squamous Epith Cells < 1 /hpf (0-5) 11/29/18 07:35 Hyaline Casts 0-2 /hpf (0-2) 11/29/18 07:35 Blood Type O POSITIVE 11/29/18 07:27 Antibody Screen Negative 11/29/18 07:27 Crossmatch See Detail 11/29/18 07:27 BBK History Checked Patient has bt 11/29/18 07:27 - Hospital Course Hospital Course: 68 y/o Female with PMH of HTN, gastritis, RH arthritis with mitral regurgitation was seen and evaluated for elective Right Hip Replacement Surgery POD1. Patient states she has some pain overnight, however, it is controlled. Patient was evaluated by physical therapy, and patient to be discharged to TCU for further rehab. Patient denies any complaints of fever, nausea, vomiting, SOB or CP. Patient states she was able to urinate without pain or burning. Patient was also seen eating with family at bedside. Plan: Elective Total RIGHT hip replacement - Pain management - Patient evaluated by PT, recommend discharge to TCU - Continue Abx - BEBETO vac dressing in place Urinary Retention - acute, post-op - straight cath 11/29/13 with output of 500 cc - patient states resolved at this time Acute blood loss Anemia - H/H- 10.8/31.8 - continue to monitor HTN - asymptomatic, chronic - HCTZ 25 mg daily - continue home medication Rheumatoid Arthritis - chronic arthritis - Embrel Injection once/week - Continue home medication DVT Prophylaxis - Lovenox 40 - Date & Time of H&P Date of H&P: 11/30/18 Time of H&P: 12:40 Discharge Exam - Head Exam Head Exam: ATRAUMATIC, NORMOCEPHALIC - Eye Exam Eye Exam: Normal appearance, PERRL - ENT Exam ENT Exam: Mucous Membranes Moist - Respiratory Exam Respiratory Exam: Clear to PA & Lateral, NORMAL BREATHING PATTERN. absent: Rales, Rhonchi, Wheezes - Cardiovascular Exam Cardiovascular Exam: REGULAR RHYTHM, +S1 - GI/Abdominal Exam GI & Abdominal Exam: Normal Bowel Sounds, Soft. absent: Distended, Firm, Guarding - Rectal Exam Rectal Exam: Deferred - Extremities Exam Extremities exam: tenderness Additional comments: tenderness to the right hip on range of motion, BEBETO vac dressing in place, dry and clean - Back Exam Back exam: absent: CVA tenderness (L), CVA tenderness (R) - Neurological Exam Neurological exam: Alert, Oriented x3 - Psychiatric Exam Psychiatric exam: Normal Affect, Normal Mood Discharge Plan - Follow Up Plan Condition: GOOD Disposition: HOME/ ROUTINE Patient education suggested?: Yes
--- NOTE | 2018-11-30 12:30 | OP ---
PROCEDURE DATE: 11/29/2018 PREOPERATIVE DIAGNOSES: 1. Inflammatory arthritis of the right hip. 2. Degenerative arthritis of the right hip. 3. Synovitis of the hip. OPERATIVE FINDINGS: As above. POSTOPERATIVE DIAGNOSES: 1. Inflammatory arthritis of the right hip. 2. Degenerative arthritis of the right hip. 3. Synovitis of the right hip. 4. Iliopsoas tendon contracture and capsular contracture. OPERATIVE PROCEDURES: 1. Right total hip replacement, anterior approach. 2. Arthrotomy, synovectomy. 3. Release of iliopsoas tendon. 4. Autograft bone graft to the acetabulum and femur. 5. Computer navigation. SURGEON: Giacomo Brock MD IMAGE EDITOR: CINTHIA August SECOND RELIGIOUS EDUCATION DIRECTOR: Maxwell Peoples PA-C SPECIMENS REMOVED: Bone, synovium and tendon. BLOOD LOSS: Approximately 200 mL. BLOOD PRODUCTS GIVEN: 1 unit of packed blood cells. DRAINS USED: BEBETO wound VAC drain was employed. POSTOPERATIVE CONDITION: Stable. TIME IN THE ROOM: 07:50 ANESTHESIA INDUCTION TIME: 07:50 a.m. INCISION TIME: 09:23 It should be noted that the supporting K-wires for the optical accelerometer were removed. The wound was thoroughly irrigated. These were closed with interrupted Vicryl and Dermabond. Compression dressing was applied. OPERATIVE INDICATION: Nikki Montes is a 68-year-old woman, who is now status post successful contralateral left hip replacement arthroplasty. The patient now presents with pain and restricted range of motion of the right hip. She wishes the right hip to be done as soon as possible and we try to accommodate by scheduling at this point. Informed consent was obtained. Possibility of mechanical failure, infection, thromboembolic disease, possibility of secondary or tertiary surgery was discussed. Possibility of leg length inequality and possibility of recurrent dislocation and nerve injury was discussed. OPERATIVE PROCEDURE: After having obtained informed consent in the above fashion, after the satisfactory induction of spinal and general anesthesia by Dr. Robson Maciel and after having identified side, site and procedure and a critical pause/time-out, the patient identified as Nikki Montes in the supine position with all bony prominences well padded. The right lower extremity was placed in the supine position for anterior approach hip surgery. Under the surgeon's direction, the fluoroscope was positioned. Video images were generated, therapeutic decisions were made therefrom. The right lower extremity was found to be approximately one-half inch shorter than the left and it was discussed with the patient that all attempts will be made to equalize the lower extremities. Again, the possibility of mechanical failure, infection, thromboembolic disease was discussed. The concept that leg length inequality is subservient to stability was discussed. Computer navigation was employed. After sterilely prepping and draping, after having identified side, site and procedure and a critical pause/time-out. After the satisfactory induction of the anesthetic, after having identified side, site and procedure, an incision was described one fingerbreadth distal to the ASIS and three fingerbreadths posterior superficial to the tensor fascia femoris muscle. The Lisa-Cordero interval was identified and marked clearly to stay away from. The tensor fascia femoris for the modified Hueter approach was described. The incision was described superficial to the tensor fascia femoris. The skin incision was carried down through the skin and subcutaneous tissue. The fascia was identified and was divided. The tensor fascia femoris muscle was taken down from the investing fascia. This plane was identified and the Medacta Mack retractor was placed vertically to identify the posterior aspect of the rectus femoris muscle. Hemostasis was controlled. was carefully identified and Medacta retractor was placed deeper in the horizontal latitude, exposing the fascia superficial to the hip. The fascia was carefully divided. The anterior femoral circumflex vessels were identified. The anterior branch of the lateral femoral circumflex vessels were dissected and they were divided and controlled with a suture ligature after division. This having been accomplished, the capsulectomy was accomplished extending at the margin of the acetabulum laterally. Medially to the border of the iliocapsularis musculature, the Medacta Hohmann retractor was placed and the capsule was elevated. The area of the intertrochanteric ridge was identified. The intertrochanteric tubercle was identified. Further dissection was carried back laterally. The capsular flap was tagged and was carefully released. This having been accomplished, the trochanteric fossa was packed. A second Medacta Hohmann retractor was placed in an attempt to regain leg length and the osteotomy was accomplished leaving approximately 2 to 2.5 cm above the lesser trochanter. Osteotomy was accomplished. Traction was applied and the osteotomy was completed. Great care was taken not to osteotomize the greater trochanter. This having been accomplished, the extremity was externally rotated. The corkscrew was inserted. The head was removed. Trialing of the head was to approximately 48 mm. At this point in time, notch osteophytes and border osteophytes were debrided. The Charnley retractor was inserted. Arthrotomy and synovectomy at this point was accomplished. At this point in time, attention was turned to the anterior-superior iliac spine and the two supporting K-wires were introduced into the anterior-superior iliac spine. The platform was tightened and the computer navigation begun with the optical accelerometer. This having been accomplished, the registration of the anterior aspect of the pelvic plane was accomplished with the right anterior superior iliac spine. After registration was accomplished, at this point in time, sequential reaming was carried out from 48 mm to 52 mm in approximately 40 degrees of abduction and 20 degrees of anteversion. This having been accomplished, the reamings were denuded off articular cartilage and they were saved. This trialing having been accomplished, successful computer navigation was carried out at this point in time after reaming with the sensor on the insertion of the cup. There was found be approximately 41 degrees of abduction and 20 degrees of anteversion, found to be acceptable. This having been accomplished, autograft bone grafting was carried out to the acetabulum and the Medacta 52-mm cup was impacted at 40 degrees of abduction and 18-20 degrees of anteversion. The cup was found to be stable. The wound was thoroughly irrigated. At this point in time, external rotation of the femur commences. The pubofemoral ligament was released. The iliopsoas tendon was released. There was found to be some tightness of the femur. The femur was mobilized. Further external rotation was accomplished. The O'Reinaldo retractors were placed medially and posteriorly. The femur was delivered. The bridge of bone between the neck of the trochanter was divided and this having been accomplished, the rasp was introduced. The rasp having been introduced, sequential broaching was carried out to a #3 femoral component. Again, the version was respected because of the tall neck cut. Standard neck with a 28-mm head and 52-mm polyethylene outer bearing was reduced and the hip was reduced and found to be stable in all planes and stable in external rotation, internal rotation and flexion. There was no evidence of instability. No push-pull. At this point in time, the #3 collared Medacta stem was introduced. It was impacted, found to be in excellent position. Under the surgeon's direction, the fluoroscope was positioned. This having been accomplished, the neutral head, cobalt ceramic with the 52 mm outer bearing was impacted and found to be excellent. The hip was reduced and found to be stable in all planes. The wound was thoroughly irrigated. At this point in time, the iliopsoas tendon having been released, autograft bone grafting was carried out to the proximal aspect of the femur. Bone grafting the proximal femur as well. Hemostasis was controlled with the Aquamantys. The wound was thoroughly irrigated. Hemostasis having been control. FloSeal was employed for hemostatic agent. Blood loss of approximately 200 mL and 1 unit of packed cells was offered. Closure of the fascia was with interrupted and reinforcing suture was placed in the tensor fascia femoris in a modified Cardona type suture and this having been accomplished, the fascia was closed with 0 Quill followed by Vicryl, 2-0 Vicryl, and vianney to skin. A BEBETO wound VAC was applied. Compression dressing was applied. Postoperative x-rays showed excellent position of the construct. Giacomo Brock MD MATT
== END 2018-11-30 14:38 | DRG 470 ==
LOC: H.OPSURG 05:50 → H.MEDSURG1 12:07
PROVIDERS: ADMIT Hospitalist; ATTEND Hospitalist
PROC: 30233N1 Transfusion of Nonautologous Red Blood Cells into Peripheral Vein, Percutaneous Approach (ICD-10-PCS; 2018-11-29)
PROC: 0SR904Z Replacement of Right Hip Joint with Ceramic on Polyethylene Synthetic Substitute, Open Approach (ICD-10-PCS; principal; 2018-11-29 07:45)
DX: M16.11 Unilateral primary osteoarthritis, right hip (principal); D62 Acute posthemorrhagic anemia; R33.8 Other retention of urine; M06.80 Other specified rheumatoid arthritis, unspecified site; M65.851 Other synovitis and tenosynovitis, right thigh; M06.4 Inflammatory polyarthropathy; I10 Essential (primary) hypertension; I34.0 Nonrheumatic mitral (valve) insufficiency; Z88.0 Allergy status to penicillin; Z90.49 Acquired absence of other specified parts of digestive tract

== ENCOUNTER 2018-11-30 12:30 | Inpatient (IN) | payer BC, OTHER ==
[2018-11-30 15:00] VITALS: BMI 35.9
[2018-11-30] MEDS ORDERED: Morphine 4 MG/ML VIAL IVP PRN (15:12)
[2018-11-30] MEDS ORDERED: Oxycodone/Acetaminophen 5/325 mg Tab PO PRN (15:12)
[2018-11-30 15:34] VITALS: RESP 20
[2018-11-30] MEDS: Cholecalciferol 1,000 INTLU TAB PO SCH (17:28)
[2018-11-30] MEDS: Oxycodone/Acetaminophen 5/325 mg Tab PO PRN ×2 (18:44→22:49)
[2018-11-30] MEDS: Docusate-Senna 50 mg-8.6 mg Tab PO SCH (22:48)
[2018-12-01 06:42] LABS: HEMOGLOBIN 10.4 g/dL (12.0-16.0); MEAN CELL VOLUME 87.2 fl (81.0-99.0); MEAN CORPUSCULAR HEMOGLOBIN 28.9 pg (27.0-31.0); MEAN CORPUSCULAR HGB CONC 33.1 g/dL (33.0-37.0); RBC 3.6 Mil/uL (3.80-5.20); RED CELL DISTRIBUTION WIDTH 14.4 % (11.5-14.5); WHITE BLOOD COUNT 8.7 K/uL (4.8-10.8)
[2018-12-01 07:03] LABS: BLOOD UREA NITROGEN 12 mg/dl (7-17); GFR NON-AFRICAN AMERICAN > 60
[2018-12-01] MEDS: Oxycodone/Acetaminophen 5/325 mg Tab PO PRN ×2 (07:52→16:46)
[2018-12-01] MEDS: Enoxaparin 40 mg Syringe SC SCH (08:00)
[2018-12-01] MEDS: Cholecalciferol 1,000 INTLU TAB PO SCH (08:01)
[2018-12-01] MEDS ORDERED: oxyCODONE 10 mg ER Tab (oxyCONTIN) PO STA (09:29)
[2018-12-01] MEDS ORDERED: Oxycodone/Acetaminophen 5/325 mg Tab PO PRN (10:58)
--- NOTE | 2018-12-01 14:24 | CP.PCM.HP ---
<Shaniqua Pagan - Last Filed: 12/01/18 16:44> History of Present Illness - History of Present Illness History of Present Illness: 68 yo F with history of HTN, gastritis, rheumatoid arthritis, mitral regurgitation, left THR 07/2018; POD 2 after elective right hip replacement surgery. Received 1U PRBC intraoperatively. Pt was evaluated by PT while admitted to medical floor, and was dischaged to TCU for continued physical therapy Today, she is seen in TCU. at bedside, pt states she is doing well and did PT today. Reports she had pain in the morning, but it is well controlled now that pain medication regimen has been adjusted. Voiding freely, tolerating PO diet, able to ambulate on her own w/ walked to bathroom. No chest pain or SOB. Present on Admission - Present on Admission Any Indicators Present on Admission: No Review of Systems - Review of Systems Review of Systems: pos as per hpi, reviewed 12 point Past Patient History - Past Medical History & Family History Past Medical History?: Yes - Past Social History Smoking Status: Never Smoked - CARDIAC Hx Cardiac Disorders: No - PULMONARY Hx Respiratory Disorders: No - NEUROLOGICAL Hx Neurological Disorder: No - HEENT Hx HEENT Problems: No - RENAL Hx Chronic Kidney Disease: No - ENDOCRINE/METABOLIC Hx Endocrine Disorders: No - HEMATOLOGICAL/ONCOLOGICAL Hx Blood Disorders: No - INTEGUMENTARY Hx Dermatological Problems: No - MUSCULOSKELETAL/RHEUMATOLOGICAL Hx Degenerative Joint Disease: Yes Hx Falls: No Hx Rheumatoid Arthritis: Yes - GASTROINTESTINAL Hx Gastrointestinal Disorders: No - GENITOURINARY/GYNECOLOGICAL Hx Genitourinary Disorders: No - PSYCHIATRIC Hx Psychophysiologic Disorder: No Hx Substance Use: No - SURGICAL HISTORY Hx Appendectomy: Yes Hx Arthroscopy: Yes (Both knees 2008) Hx Hysterectomy: Yes (2016) Hx Joint Replacement: Yes (Left total hip replacement 08/15/18) Other/Comment: x4 - ANESTHESIA Hx Anesthesia: Yes Hx Anesthesia Reactions: No Hx Malignant Hyperthermia: No Meds Allergies/Adverse Reactions: Allergies Allergy/AdvReac Type Severity Reaction Status Date / Time Penicillins Allergy Intermediate RASH Verified 11/30/18 13:27 Physical Exam - Constitutional Appears: No Acute Distress - Head Exam Head Exam: NORMAL INSPECTION - Eye Exam Eye Exam: Normal appearance - ENT Exam ENT Exam: Mucous Membranes Moist - Neck Exam Neck exam: Positive for: Full Rom - Respiratory Exam Respiratory Exam: Clear to Auscultation Bilateral, NORMAL BREATHING PATTERN. absent: Wheezes, Respiratory Distress - Cardiovascular Exam Cardiovascular Exam: REGULAR RHYTHM, +S1, +S2 - GI/Abdominal Exam GI & Abdominal Exam: Normal Bowel Sounds, Soft. absent: Tenderness - Extremities Exam Extremities exam: Negative for: calf tenderness Additional comments: BEBETO dressing in place , intact - Neurological Exam Neurological exam: Alert, Oriented x3 - Psychiatric Exam Psychiatric exam: Normal Mood - Skin Skin Exam: Dry, Warm Results - Vital Signs Recent Vital Signs: Last Vital Signs Temp 99.6 F 12/01/18 08:10 Pulse 84 12/01/18 08:10 Resp 20 12/01/18 08:10 BP 106/72 12/01/18 08:10 Pulse Ox 98 12/01/18 08:10 - Labs Result Diagrams: 12/01/18 05:45 12/01/18 05:45 Labs: Laboratory Results - last 24 hr 12/01/18 12/01/18 05:45 05:45 WBC 8.7 RBC 3.60 L Hgb 10.4 L Hct 31.4 L MCV 87.2 MCH 28.9 MCHC 33.1 RDW 14.4 Plt Count 186 Sodium 138 Potassium 3.4 L Chloride 98 Carbon Dioxide 33 H Anion Gap 10 BUN 12 Creatinine 0.8 Est GFR ( Amer) > 60 Est GFR (Non-Af Amer) > 60 Random Glucose 126 H Calcium 9.0 Assessment & Plan - Assessment and Plan (Free Text) Assessment: 8 yo F with history of HTN, gastritis, rheumatoid arthritis, mitral regu rgitation, left THR 07/2018; POD 2 after elective right hip replacement surgery. Hemodynamically stable. Plan: s/p elective RIGHT THR - Pain control - Encourage PT/OT - Consult for PMR/pain management- Dr. Bergeron-Thompson - Ortho consulted for f/u Acute Blood Loss Anemia - s/p 1U PRBC intraoperatively - H/H- 10.4/31.4 - PO iron - Continue to monitor HTN - Asymptomatic, chronic - HCTZ 25 mg daily - Continue home medication Rheumatoid Arthritis - Chronic - Embrel Injection Q1 week - Continue home medication Diet - Heart healthy diet DVT Prophylaxis - Lovenox 40 <VenturaZaki D - Last Filed: 12/01/18 17:53> Results - Vital Signs Recent Vital Signs: Last Vital Signs Temp 99.2 F 12/01/18 16:36 Pulse 90 12/01/18 16:36 Resp 20 12/01/18 16:36 BP 115/62 12/01/18 16:36 Pulse Ox 95 12/01/18 16:36 - Labs Result Diagrams: 12/01/18 05:45 12/01/18 05:45 Labs: Laboratory Results - last 24 hr 12/01/18 12/01/18 05:45 05:45 WBC 8.7 RBC 3.60 L Hgb 10.4 L Hct 31.4 L MCV 87.2 MCH 28.9 MCHC 33.1 RDW 14.4 Plt Count 186 Sodium 138 Potassium 3.4 L Chloride 98 Carbon Dioxide 33 H Anion Gap 10 BUN 12 Creatinine 0.8 Est GFR ( Amer) > 60 Est GFR (Non-Af Amer) > 60 Random Glucose 126 H Calcium 9.0 Attending/Attestation - Attestation I have personally seen and examined this patient.: Yes I have fully participated in the care of the patient.: Yes I have reviewed all pertinent clinical information: Yes Notes (Text): 12/01/18 17:52 Patient seen and examined with resident. Case discussed and agreed with assessment and plan of management.
--- NOTE | 2018-12-01 14:54 | CP.PCM.CON ---
History of Present Illness - History of Present Illness History of Present Illness: 68 year old female with RIGHT hip surgery admitted to tCU WITH pmh of left hip surgery replacement 08/15/2018 with history of appendectomy, hysterectomy Review of Systems - Review of Systems All systems: reviewed and no additional remarkable complaints except - Musculoskeletal Musculoskeletal: Muscle Weakness Past Patient History - Past Medical History & Family History Past Medical History?: Yes - Past Social History Smoking Status: Never Smoked - CARDIAC Hx Cardiac Disorders: No - PULMONARY Hx Respiratory Disorders: No - NEUROLOGICAL Hx Neurological Disorder: No - HEENT Hx HEENT Problems: No - RENAL Hx Chronic Kidney Disease: No - ENDOCRINE/METABOLIC Hx Endocrine Disorders: No - HEMATOLOGICAL/ONCOLOGICAL Hx Blood Disorders: No - INTEGUMENTARY Hx Dermatological Problems: No - MUSCULOSKELETAL/RHEUMATOLOGICAL Hx Degenerative Joint Disease: Yes Hx Falls: No Hx Rheumatoid Arthritis: Yes - GASTROINTESTINAL Hx Gastrointestinal Disorders: No - GENITOURINARY/GYNECOLOGICAL Hx Genitourinary Disorders: No - PSYCHIATRIC Hx Psychophysiologic Disorder: No Hx Substance Use: No - SURGICAL HISTORY Hx Appendectomy: Yes Hx Arthroscopy: Yes (Both knees 2008) Hx Hysterectomy: Yes (2016) Hx Joint Replacement: Yes (Left total hip replacement 08/15/18) Other/Comment: x4 - ANESTHESIA Hx Anesthesia: Yes Hx Anesthesia Reactions: No Hx Malignant Hyperthermia: No Meds Allergies/Adverse Reactions: Allergies Allergy/AdvReac Type Severity Reaction Status Date / Time Penicillins Allergy Intermediate RASH Verified 11/30/18 13:27 - Medications Medications: Current Medications Aspirin (Aspirin Chewable) 81 mg PO DAILY [facility] Last Admin: 12/01/18 08:01 Dose: 81 mg Cholecalciferol (Vitamin D) 5,000 intlu PO DAILY [facility] Last Admin: 12/01/18 08:01 Dose: 5,000 intlu Enoxaparin Sodium (Lovenox) 40 mg SC DAILY [facility]; Protocol Last Admin: 12/01/18 08:00 Dose: 40 mg Ferrous Sulfate (Feosol) 325 mg PO BID [facility] Last Admin: 12/01/18 08:02 Dose: 325 mg Folic Acid (Folic Acid) 1 mg PO DAILY [facility] Last Admin: 12/01/18 08:02 Dose: 1 mg Home Med (Etanercept [Enbrel]) 50 mg IM WED [facility] Home Med (Linaclotide [Linzess]) 145 mcg PO DAILY [facility] Hydrochlorothiazide (Hydrodiuril) 25 mg PO DAILY [facility] Last Admin: 12/01/18 08:01 Dose: 25 mg Ondansetron HCl (Zofran Inj) 4 mg IVP PRN PRN PRN Reason: Nausea/Vomiting Oxycodone HCl (Oxycontin Extended Release Tab) 10 mg PO Q12 [facility] Stop: 12/04/18 21:01 Oxycodone/Acetaminophen (Percocet 5/325 Mg Tab) 1 tab PO Q8 PRN PRN Reason: Pain, Mild (1-3) Stop: 12/04/18 17:01 Oxycodone/Acetaminophen (Percocet 5/325 Mg Tab) 2 tab PO Q8 PRN PRN Reason: Pain, moderate (4-7) Stop: 12/04/18 17:01 Senna/Docusate Sodium (Senokot S 50 Mg-8.6 Mg) 2 tab PO HS [facility] Last Admin: 11/30/18 22:48 Dose: 2 tab Physical Exam - Constitutional Appears: Well - Head Exam Head Exam: ATRAUMATIC, NORMAL INSPECTION, NORMOCEPHALIC - Eye Exam Eye Exam: EOMI, Normal appearance, PERRL Pupil Exam: NORMAL ACCOMODATION - ENT Exam ENT Exam: Mucous Membranes Moist, Normal Exam - Neck Exam Neck exam: Positive for: Normal Inspection - Respiratory Exam Respiratory Exam: Clear to Auscultation Bilateral, NORMAL BREATHING PATTERN - Cardiovascular Exam Cardiovascular Exam: REGULAR RHYTHM - GI/Abdominal Exam GI & Abdominal Exam: Normal Bowel Sounds - Rectal Exam Rectal Exam: NORMAL INSPECTION - Exam External exam: NORMAL EXTERNAL EXAM - Extremities Exam Extremities exam: Positive for: normal inspection Additional comments: right leg weakness - Back Exam Back exam: NORMAL INSPECTION - Neurological Exam Neurological exam: Alert, CN II-XII Intact - Psychiatric Exam Psychiatric exam: Normal Affect, Normal Mood - Skin Skin Exam: Dry, Intact, Normal Color Results - Vital Signs Recent Vital Signs: Last Vital Signs Temp 99.6 F 12/01/18 08:10 Pulse 84 12/01/18 08:10 Resp 20 12/01/18 08:10 BP 106/72 12/01/18 08:10 Pulse Ox 98 12/01/18 08:10 - Labs Result Diagrams: 12/01/18 05:45 12/01/18 05:45 Labs: Laboratory Results - last 24 hr 12/01/18 12/01/18 05:45 05:45 WBC 8.7 RBC 3.60 L Hgb 10.4 L Hct 31.4 L MCV 87.2 MCH 28.9 MCHC 33.1 RDW 14.4 Plt Count 186 Sodium 138 Potassium 3.4 L Chloride 98 Carbon Dioxide 33 H Anion Gap 10 BUN 12 Creatinine 0.8 Est GFR ( Amer) > 60 Est GFR (Non-Af Amer) > 60 Random Glucose 126 H Calcium 9.0 Assessment & Plan (1) Osteoarthritis of left hip Status: Acute (2) Pain management Status: Acute (3) Primary osteoarthritis of right hip Status: Acute (4) Status post left hip replacement Status: Acute - Assessment and Plan (Free Text) Assessment: right hip replacement for physical, occupational therapy for range of motion, strengthening transfers and gait training. Also did pain management with long acting oxycontin and percoset prn . Thank you for the consult
[2018-12-01] MEDS: oxyCODONE 10 mg ER Tab (oxyCONTIN) PO SCH (21:13)
[2018-12-01] MEDS: Docusate-Senna 50 mg-8.6 mg Tab PO SCH (21:17)
[2018-12-02] MEDS: Oxycodone/Acetaminophen 5/325 mg Tab PO PRN ×2 (02:22→11:19)
[2018-12-02] MEDS: Enoxaparin 40 mg Syringe SC SCH (08:55)
[2018-12-02] MEDS: oxyCODONE 10 mg ER Tab (oxyCONTIN) PO SCH ×2 (08:56→20:12)
[2018-12-02] MEDS: Cholecalciferol 1,000 INTLU TAB PO SCH (08:59)
[2018-12-02] MEDS: Docusate-Senna 50 mg-8.6 mg Tab PO SCH (21:10)
[2018-12-03] MEDS: oxyCODONE 10 mg ER Tab (oxyCONTIN) PO SCH ×2 (08:24→21:19)
[2018-12-03] MEDS: Enoxaparin 40 mg Syringe SC SCH (08:26)
[2018-12-03] MEDS: Cholecalciferol 1,000 INTLU TAB PO SCH (08:26)
--- NOTE | 2018-12-03 11:23 | CP.PCM.PN ---
Subjective - Date & Time of Evaluation Date of Evaluation: 12/03/18 Time of Evaluation: 11:20 - Subjective Subjective: Patient states she has a lot of pain in her right hip and that it is not controlled with current medications. On monday patient pain was controlled on 2 percocets. Now she says that morphine and percocet just make her go to sleep and neither helps with the pain. She says the medication she got today helped. Denies CP/SOB/dizziness/numbness/tingling. Objective - Vital Signs/Intake and Output Vital Signs (last 24 hours): Temp Pulse Resp BP Pulse Ox 98.6 F 94 H 20 102/63 97 12/03/18 08:05 12/03/18 08:05 12/03/18 08:05 12/03/18 08:05 12/03/18 08:05 - Medications Medications: Current Medications Aspirin (Aspirin Chewable) 81 mg PO DAILY [facility] Last Admin: 12/03/18 08:26 Dose: 81 mg Cholecalciferol (Vitamin D) 5,000 intlu PO DAILY [facility] Last Admin: 12/03/18 08:26 Dose: 5,000 intlu Enoxaparin Sodium (Lovenox) 40 mg SC DAILY [facility]; Protocol Last Admin: 12/03/18 08:26 Dose: 40 mg Ferrous Sulfate (Feosol) 325 mg PO BID [facility] Last Admin: 12/03/18 08:28 Dose: 325 mg Folic Acid (Folic Acid) 1 mg PO DAILY [facility] Last Admin: 12/03/18 08:26 Dose: 1 mg Home Med (Etanercept [Enbrel]) 50 mg IM WED [facility] Home Med (Linaclotide [Linzess]) 145 mcg PO DAILY [facility] Hydrochlorothiazide (Hydrodiuril) 25 mg PO DAILY [facility] Last Admin: 12/03/18 08:26 Dose: 25 mg Ketorolac Tromethamine (Toradol) 30 mg IM Q6 PRN PRN Reason: Pain, Mild (1-3) Ondansetron HCl (Zofran Inj) 4 mg IVP PRN PRN PRN Reason: Nausea/Vomiting Oxycodone HCl (Oxycontin Extended Release Tab) 10 mg PO Q12 [facility] Stop: 12/04/18 21:01 Last Admin: 12/03/18 08:24 Dose: 10 mg Oxycodone/Acetaminophen (Percocet 5/325 Mg Tab) 1 tab PO Q8 PRN PRN Reason: Pain, Mild (1-3) Stop: 12/04/18 17:01 Oxycodone/Acetaminophen (Percocet 5/325 Mg Tab) 2 tab PO Q8 PRN PRN Reason: Pain, moderate (4-7) Stop: 12/04/18 17:01 Last Admin: 12/02/18 11:19 Dose: 2 tab Senna/Docusate Sodium (Senokot S 50 Mg-8.6 Mg) 2 tab PO HS [facility] Last Admin: 12/02/18 21:10 Dose: 2 tab Tramadol HCl (Ultram) 50 mg PO Q4 PRN PRN Reason: Pain, moderate (4-7) Last Admin: 12/03/18 11:15 Dose: 50 mg - Labs Labs: 12/01/18 05:45 12/01/18 05:45 - Extremities Exam Additional comments: right hip: dressing change. BEBETO d/c. Incision intact, moderate serosang on dressing. No erythema. Minimal thigh swelling. Mild generalized tenderness. Calves soft NT neg homans +ROM ankle/toes, sensation intact Assessment and Plan (1) Primary osteoarthritis of right hip Assessment & Plan: POD# 4 s/p right total hip replacement more pain today, medication adjusted PT/OT VTE proph on lovenox d/w Dr. Brock, agrees with above Status: Acute
[2018-12-03] MEDS: Docusate-Senna 50 mg-8.6 mg Tab PO SCH (21:19)
[2018-12-04 06:55] LABS: HEMOGLOBIN 9.4 g/dL (12.0-16.0); MEAN CELL VOLUME 85.1 fl (81.0-99.0); MEAN CORPUSCULAR HEMOGLOBIN 28.6 pg (27.0-31.0); MEAN CORPUSCULAR HGB CONC 33.6 g/dL (33.0-37.0); RBC 3.3 Mil/uL (3.80-5.20); RED CELL DISTRIBUTION WIDTH 14.5 % (11.5-14.5); WHITE BLOOD COUNT 6.9 K/uL (4.8-10.8)
[2018-12-04 07:07] LABS: BLOOD UREA NITROGEN 14 mg/dl (7-17); CALCIUM 9.1 mg/dL (8.4-10.2); GFR NON-AFRICAN AMERICAN > 60
[2018-12-04] MEDS: oxyCODONE 10 mg ER Tab (oxyCONTIN) PO SCH ×2 (08:24→20:25)
[2018-12-04] MEDS: Enoxaparin 40 mg Syringe SC SCH (08:25)
[2018-12-04] MEDS: Cholecalciferol 1,000 INTLU TAB PO SCH (08:26)
--- NOTE | 2018-12-04 08:38 | CP.PCM.PN ---
Subjective - Date & Time of Evaluation Date of Evaluation: 12/04/18 Time of Evaluation: 08:00 - Subjective Subjective: Patient seen and examined sitting up at bedside comfortable and in good spirit. She notes her pain is much better controlled with the change in pain regiment yesterday. No other complaints. Tolerating PT well. Objective - Vital Signs/Intake and Output Vital Signs (last 24 hours): Temp Pulse Resp BP Pulse Ox 98.5 F 97 H 20 130/74 99 12/03/18 19:36 12/03/18 19:36 12/03/18 19:36 12/03/18 19:36 12/03/18 19:36 - Medications Medications: Current Medications Aspirin (Aspirin Chewable) 81 mg PO DAILY [facility] Last Admin: 12/04/18 08:26 Dose: 81 mg Cholecalciferol (Vitamin D) 5,000 intlu PO DAILY [facility] Last Admin: 12/04/18 08:26 Dose: 5,000 intlu Enoxaparin Sodium (Lovenox) 40 mg SC DAILY [facility]; Protocol Last Admin: 12/04/18 08:25 Dose: 40 mg Ferrous Sulfate (Feosol) 325 mg PO BID [facility] Last Admin: 12/04/18 08:24 Dose: 325 mg Folic Acid (Folic Acid) 1 mg PO DAILY [facility] Last Admin: 12/04/18 08:26 Dose: 1 mg Home Med (Etanercept [Enbrel]) 50 mg IM WED [facility] Home Med (Linaclotide [Linzess]) 145 mcg PO DAILY [facility] Hydrochlorothiazide (Hydrodiuril) 25 mg PO DAILY [facility] Last Admin: 12/04/18 08:26 Dose: 25 mg Ketorolac Tromethamine (Toradol) 30 mg IM Q6 PRN PRN Reason: Pain, Mild (1-3) Ondansetron HCl (Zofran Inj) 4 mg IVP PRN PRN PRN Reason: Nausea/Vomiting Oxycodone HCl (Oxycontin Extended Release Tab) 10 mg PO Q12 [facility] Stop: 12/04/18 21:01 Last Admin: 12/04/18 08:24 Dose: 10 mg Oxycodone/Acetaminophen (Percocet 5/325 Mg Tab) 1 tab PO Q8 PRN PRN Reason: Pain, Mild (1-3) Stop: 12/04/18 17:01 Oxycodone/Acetaminophen (Percocet 5/325 Mg Tab) 2 tab PO Q8 PRN PRN Reason: Pain, moderate (4-7) Stop: 12/04/18 17:01 Last Admin: 12/02/18 11:19 Dose: 2 tab Senna/Docusate Sodium (Senokot S 50 Mg-8.6 Mg) 2 tab PO HS [facility] Last Admin: 12/03/18 21:19 Dose: 2 tab Tramadol HCl (Ultram) 50 mg PO Q4 PRN PRN Reason: Pain, moderate (4-7) Last Admin: 12/04/18 06:46 Dose: 50 mg - Labs Labs: 12/04/18 06:40 12/04/18 06:40 - Extremities Exam Additional comments: R hip: Dressings CDI mild swelling to thigh sensation intact SP/DP/TN motor intact EHL/FHL/TA/G/Q/HS pedal pulse intact calves soft NT b/l Assessment and Plan (1) Status post right hip replacement Assessment & Plan: POD#5 s/p R TITO -pain better controlled -PT/OT FWB -DVT ppx -orthopedically stable -above d/w Dr. Brock in agreement Status: Acute
--- NOTE | 2018-12-04 13:00 | CP.PCM.PN ---
Subjective - Date & Time of Evaluation Date of Evaluation: 12/04/18 Time of Evaluation: 12:15 - Subjective Subjective: patient with less leg pain , doing well Objective - Vital Signs/Intake and Output Vital Signs (last 24 hours): Temp Pulse Resp BP Pulse Ox 98.6 F 97 H 20 114/78 98 12/04/18 09:48 12/04/18 09:48 12/04/18 09:48 12/04/18 09:48 12/04/18 09:48 - Medications Medications: Current Medications Aspirin (Aspirin Chewable) [address] [facility] Last Admin: 12/04/18 08:26 Dose: 81 mg Cholecalciferol (Vitamin D) 5,[address] [facility] Last Admin: 12/04/18 08:26 Dose: 5,000 intlu Enoxaparin Sodium (Lovenox) [address] [facility]; Protocol Last Admin: 12/04/18 08:25 Dose: 40 mg Ferrous Sulfate (Feosol) [address] [facility] Last Admin: 12/04/18 08:24 Dose: 325 mg Folic Acid (Folic Acid) [address] [facility] Last Admin: 12/04/18 08:26 Dose: 1 mg Home Med (Etanercept [Enbrel]) [address] [facility] Home Med (Linaclotide [Linzess]) [address] [facility] Hydrochlorothiazide (Hydrodiuril) [address] [facility] Last Admin: 12/04/18 08:26 Dose: 25 mg Ketorolac Tromethamine (Toradol) 30 mg IM Q6 PRN PRN Reason: Pain, Mild (1-3) Ondansetron HCl (Zofran Inj) 4 mg IVP PRN PRN PRN Reason: Nausea/Vomiting Oxycodone HCl (Oxycontin Extended Release Tab) [address] [facility] Stop: 12/04/18 21:01 Last Admin: 12/04/18 08:24 Dose: 10 mg Oxycodone/Acetaminophen (Percocet 5/325 Mg Tab) 1 tab PO Q8 PRN PRN Reason: Pain, Mild (1-3) Stop: 12/04/18 17:01 Oxycodone/Acetaminophen (Percocet 5/325 Mg Tab) 2 tab PO Q8 PRN PRN Reason: Pain, moderate (4-7) Stop: 12/04/18 17:01 Last Admin: 12/02/18 11:19 Dose: 2 tab Senna/Docusate Sodium (Senokot S 50 Mg-8.6 Mg) 2 tab PO HS [facility] Last Admin: 12/03/18 21:19 Dose: 2 tab Tramadol HCl (Ultram) 50 mg PO Q4 PRN PRN Reason: Pain, moderate (4-7) Last Admin: 12/04/18 11:19 Dose: 50 mg - Labs Labs: 12/04/18 06:40 12/04/18 06:40 - Constitutional Appears: Well - Head Exam Head Exam: ATRAUMATIC, NORMAL INSPECTION, NORMOCEPHALIC - Eye Exam Eye Exam: EOMI, Normal appearance, PERRL Pupil Exam: NORMAL ACCOMODATION - ENT Exam ENT Exam: Mucous Membranes Moist, Normal Exam - Neck Exam Neck Exam: Normal Inspection - Respiratory Exam Respiratory Exam: Clear to Ausculation Bilateral, NORMAL BREATHING PATTERN - Cardiovascular Exam Cardiovascular Exam: REGULAR RHYTHM - GI/Abdominal Exam GI & Abdominal Exam: Soft, Normal Bowel Sounds - Rectal Exam Rectal Exam: NORMAL INSPECTION - Exam External exam: NORMAL EXTERNAL EXAM - Extremities Exam Extremities Exam: Full ROM, Normal Capillary Refill - Back Exam Back Exam: NORMAL INSPECTION - Neurological Exam Neurological Exam: Alert, Awake Neuro motor strength exam: Right Lower Extremity: 3 - Psychiatric Exam Psychiatric exam: Normal Affect, Normal Mood - Skin Skin Exam: Dry, Intact, Normal Color Assessment and Plan (1) Osteoarthritis of left hip Status: Acute (2) Pain management Status: Acute (3) Primary osteoarthritis of right hip Status: Acute (4) Status post left hip replacement Assessment & Plan: plan for physical, occupational therapy ultram and toradel, oxycontin for patient Status: Acute
--- NOTE | 2018-12-04 15:08 | CP.PCM.PN ---
Subjective - Date & Time of Evaluation Date of Evaluation: 12/04/18 Time of Evaluation: 11:00 - Subjective Subjective: Patient seen and examined bedside.Feeling much better . Hemodynamically stable, afebrile. Participating with PT No acute issues overnight Pain is well controlled Objective - Vital Signs/Intake and Output Vital Signs (last 24 hours): Temp Pulse Resp BP Pulse Ox 98.6 F 97 H 20 114/78 98 12/04/18 09:48 12/04/18 09:48 12/04/18 09:48 12/04/18 09:48 12/04/18 09:48 - Medications Medications: Current Medications Aspirin (Aspirin Chewable) 81 mg PO DAILY [facility] Last Admin: 12/04/18 08:26 Dose: 81 mg Cholecalciferol (Vitamin D) 5,000 intlu PO DAILY [facility] Last Admin: 12/04/18 08:26 Dose: 5,000 intlu Enoxaparin Sodium (Lovenox) 40 mg SC DAILY [facility]; Protocol Last Admin: 12/04/18 08:25 Dose: 40 mg Ferrous Sulfate (Feosol) 325 mg PO BID [facility] Last Admin: 12/04/18 08:24 Dose: 325 mg Folic Acid (Folic Acid) 1 mg PO DAILY [facility] Last Admin: 12/04/18 08:26 Dose: 1 mg Home Med (Etanercept [Enbrel]) 50 mg IM WED [facility] Home Med (Linaclotide [Linzess]) 145 mcg PO DAILY [facility] Hydrochlorothiazide (Hydrodiuril) 25 mg PO DAILY [facility] Last Admin: 12/04/18 08:26 Dose: 25 mg Ketorolac Tromethamine (Toradol) 30 mg IM Q6 PRN PRN Reason: Pain, Mild (1-3) Ondansetron HCl (Zofran Inj) 4 mg IVP PRN PRN PRN Reason: Nausea/Vomiting Oxycodone HCl (Oxycontin Extended Release Tab) 10 mg PO Q12 [facility] Stop: 12/04/18 21:01 Last Admin: 12/04/18 08:24 Dose: 10 mg Oxycodone/Acetaminophen (Percocet 5/325 Mg Tab) 1 tab PO Q8 PRN PRN Reason: Pain, Mild (1-3) Stop: 12/04/18 17:01 Oxycodone/Acetaminophen (Percocet 5/325 Mg Tab) 2 tab PO Q8 PRN PRN Reason: Pain, moderate (4-7) Stop: 12/04/18 17:01 Last Admin: 12/02/18 11:19 Dose: 2 tab Senna/Docusate Sodium (Senokot S 50 Mg-8.6 Mg) 2 tab PO HS [facility] Last Admin: 12/03/18 21:19 Dose: 2 tab Tramadol HCl (Ultram) 50 mg PO Q4 PRN PRN Reason: Pain, moderate (4-7) Last Admin: 12/04/18 11:19 Dose: 50 mg - Labs Labs: 12/04/18 06:40 12/04/18 06:40 - Constitutional Appears: Non-toxic, No Acute Distress - Head Exam Head Exam: ATRAUMATIC, NORMAL INSPECTION, NORMOCEPHALIC - Eye Exam Eye Exam: EOMI, Normal appearance, PERRL Pupil Exam: NORMAL ACCOMODATION - ENT Exam ENT Exam: Mucous Membranes Moist, Normal Exam - Neck Exam Neck Exam: Full ROM, Normal Inspection - Cardiovascular Exam Cardiovascular Exam: REGULAR RHYTHM, RRR, +S1, +S2. absent: JVD - GI/Abdominal Exam GI & Abdominal Exam: Soft, Normal Bowel Sounds. absent: Rebound - Rectal Exam Rectal Exam: Deferred - Extremities Exam Extremities Exam: Normal Capillary Refill. absent: Calf Tenderness, Pedal Edema, Tenderness Additional comments: right hip surgical incision with dressing in place - Back Exam Back Exam: NORMAL INSPECTION - Neurological Exam Neurological Exam: Alert, Awake, CN II-XII Intact, Oriented x3 - Psychiatric Exam Psychiatric exam: Normal Affect, Normal Mood - Skin Skin Exam: Dry, Intact, Normal Color, Warm Assessment and Plan - Assessment and Plan (Free Text) Assessment: 68 yo F with history of HTN, gastritis, rheumatoid arthritis, mitral regurgitation, left THR 07/2018 admitted for elective right THR .Patient transferred to TCU for continuation of physical therapy At present doing well, participating with PT , pain is controlled 1.s/p elective RIGHT THR Pain control Participating with PT and doing well Ortho on consult , following Continue DVT prophylaxis 2.Acute Blood Loss Anemia stable s/p 1U PRBC intraoperatively Continue Ferrous sulfate 3.HTN Asymptomatic, chronic ,controlled HCTZ 25 mg daily 4.Rheumatoid Arthritis Chronic Embrel Injection Q1 week 5.DVT Prophylaxis Lovenox 40
--- NOTE | 2018-12-04 20:19 | CP.PCM.PN ---
Subjective - Date & Time of Evaluation Date of Evaluation: 12/03/18 Time of Evaluation: 12:00 - Subjective Subjective: patient with mild leg weakness Objective - Vital Signs/Intake and Output Vital Signs (last 24 hours): Temp Pulse Resp BP Pulse Ox 99.0 F 99 H 20 104/70 99 12/04/18 19:39 12/04/18 19:39 12/04/18 19:39 12/04/18 19:39 12/04/18 19:39 - Medications Medications: Current Medications Aspirin (Aspirin Chewable) 81 mg PO DAILY [facility] Last Admin: 12/04/18 08:26 Dose: 81 mg Cholecalciferol (Vitamin D) 5,000 intlu PO DAILY [facility] Last Admin: 12/04/18 08:26 Dose: 5,000 intlu Enoxaparin Sodium (Lovenox) 40 mg SC DAILY [facility]; Protocol Last Admin: 12/04/18 08:25 Dose: 40 mg Ferrous Sulfate (Feosol) 325 mg PO BID [facility] Last Admin: 12/04/18 16:36 Dose: 325 mg Folic Acid (Folic Acid) 1 mg PO DAILY [facility] Last Admin: 12/04/18 08:26 Dose: 1 mg Home Med (Etanercept [Enbrel]) 50 mg IM WED [facility] Home Med (Linaclotide [Linzess]) 145 mcg PO DAILY [facility] Hydrochlorothiazide (Hydrodiuril) 25 mg PO DAILY [facility] Last Admin: 12/04/18 08:26 Dose: 25 mg Ketorolac Tromethamine (Toradol) 30 mg IM Q6 PRN PRN Reason: Pain, Mild (1-3) Ondansetron HCl (Zofran Inj) 4 mg IVP PRN PRN PRN Reason: Nausea/Vomiting Oxycodone HCl (Oxycontin Extended Release Tab) 10 mg PO Q12 [facility] Stop: 12/04/18 21:01 Last Admin: 12/04/18 08:24 Dose: 10 mg Senna/Docusate Sodium (Senokot S 50 Mg-8.6 Mg) 2 tab PO HS [facility] Last Admin: 12/03/18 21:19 Dose: 2 tab Tramadol HCl (Ultram) 50 mg PO Q4 PRN PRN Reason: Pain, moderate (4-7) Last Admin: 12/04/18 16:35 Dose: 50 mg - Labs Labs: 12/04/18 06:40 12/04/18 06:40 - Constitutional Appears: Well - Head Exam Head Exam: ATRAUMATIC, NORMAL INSPECTION, NORMOCEPHALIC - Eye Exam Eye Exam: EOMI, Normal appearance Pupil Exam: NORMAL ACCOMODATION, PERRL - ENT Exam ENT Exam: Mucous Membranes Moist, Normal Exam - Neck Exam Neck Exam: Full ROM - Respiratory Exam Respiratory Exam: Clear to Ausculation Bilateral, NORMAL BREATHING PATTERN - Cardiovascular Exam Cardiovascular Exam: REGULAR RHYTHM - GI/Abdominal Exam GI & Abdominal Exam: Normal Bowel Sounds - Rectal Exam Rectal Exam: NORMAL INSPECTION - Exam Speculum exam: NORMAL SPECULUM EXAM - Extremities Exam Extremities Exam: Normal Inspection - Back Exam Back Exam: NORMAL INSPECTION - Neurological Exam Neurological Exam: Alert, Awake Neuro motor strength exam: Right Upper Extremity: 3 - Psychiatric Exam Psychiatric exam: Normal Affect - Skin Skin Exam: Dry, Normal Color Assessment and Plan (1) Osteoarthritis of left hip Status: Acute (2) Pain management Status: Acute (3) Primary osteoarthritis of right hip Assessment & Plan: right hip replacement, plan for physical, and occupational therapy and pain management Status: Acute (4) Status post left hip replacement Status: Acute
[2018-12-04] MEDS: Docusate-Senna 50 mg-8.6 mg Tab PO SCH (21:25)
[2018-12-05] MEDS: Cholecalciferol 1,000 INTLU TAB PO SCH (08:19)
[2018-12-05] MEDS: Enoxaparin 40 mg Syringe SC SCH (08:19)
[2018-12-05] MEDS ORDERED: oxyCODONE 10 mg ER Tab (oxyCONTIN) PO SCH ×3 (09:00→21:00)
--- NOTE | 2018-12-05 11:57 | CP.PCM.PN ---
Subjective - Date & Time of Evaluation Date of Evaluation: 12/05/18 Time of Evaluation: 11:00 - Subjective Subjective: Patient seen and examined sitting in chair with PT. Minimal pain, but controlled with PO meds. Able to ambulate without assistive aid today. No other complaints. Objective - Vital Signs/Intake and Output Vital Signs (last 24 hours): Temp Pulse Resp BP Pulse Ox 98.8 F 92 H 20 114/80 97 12/05/18 09:47 12/05/18 09:47 12/05/18 09:47 12/05/18 09:47 12/05/18 09:47 - Medications Medications: Current Medications Acetaminophen (Tylenol 325mg Tab) 650 mg PO Q4 PRN PRN Reason: Pain, Mild (1-3) Aspirin (Aspirin Chewable) 81 mg PO DAILY [facility] Last Admin: 12/05/18 08:20 Dose: 81 mg Cholecalciferol (Vitamin D) 5,000 intlu PO DAILY [facility] Last Admin: 12/05/18 08:19 Dose: 5,000 intlu Enoxaparin Sodium (Lovenox) 40 mg SC DAILY [facility]; Protocol Last Admin: 12/05/18 08:19 Dose: 40 mg Ferrous Sulfate (Feosol) 325 mg PO BID [facility] Last Admin: 12/05/18 08:20 Dose: 325 mg Folic Acid (Folic Acid) 1 mg PO DAILY [facility] Last Admin: 12/05/18 08:19 Dose: 1 mg Home Med (Linaclotide [Linzess]) 145 mcg PO DAILY [facility] Last Admin: 12/05/18 08:19 Dose: 145 mcg Hydrochlorothiazide (Hydrodiuril) 25 mg PO DAILY [facility] Last Admin: 12/05/18 08:20 Dose: 25 mg Ketorolac Tromethamine (Toradol) 30 mg IM Q6 PRN PRN Reason: Pain, severe (8-10) Ondansetron HCl (Zofran Inj) 4 mg IVP PRN PRN PRN Reason: Nausea/Vomiting Oxycodone HCl (Oxycontin Extended Release Tab) 10 mg PO Q12 [facility] Stop: 12/08/18 09:01 Last Admin: 12/05/18 08:19 Dose: 10 mg Senna/Docusate Sodium (Senokot S 50 Mg-8.6 Mg) 2 tab PO HS [facility] Last Admin: 12/04/18 21:25 Dose: 2 tab Tramadol HCl (Ultram) 50 mg PO Q4 PRN PRN Reason: Pain, moderate (4-7) Last Admin: 12/05/18 11:00 Dose: 50 mg - Labs Labs: 12/04/18 06:40 12/04/18 06:40 - Extremities Exam Additional comments: R hip: Dressings CDI mild swelling to thigh sensation intact SP/DP/TN motor intact EHL/FHL/TA/G/Q/HS pedal pulse intact calves soft NT b/l Assessment and Plan (1) Status post right hip replacement Assessment & Plan: POD#6 s/p R TITO -pain controlled -PT/OT FWB -DVT ppx -orthopedically stable for discharge -above d/w Dr. Brock in agreement Status: Acute
--- NOTE | 2018-12-05 12:08 | CP.PCM.PN ---
Subjective - Date & Time of Evaluation Date of Evaluation: 12/05/18 Time of Evaluation: 12:00 - Subjective Subjective: patinet is better with pain Objective - Vital Signs/Intake and Output Vital Signs (last 24 hours): Temp Pulse Resp BP Pulse Ox 98.8 F 92 H 20 114/80 97 12/05/18 09:47 12/05/18 09:47 12/05/18 09:47 12/05/18 09:47 12/05/18 09:47 - Medications Medications: Current Medications Acetaminophen (Tylenol 325mg Tab) 650 mg PO Q4 PRN PRN Reason: Pain, Mild (1-3) Aspirin (Aspirin Chewable) 81 mg PO DAILY [facility] Last Admin: 12/05/18 08:20 Dose: 81 mg Cholecalciferol (Vitamin D) 5,000 intlu PO DAILY [facility] Last Admin: 12/05/18 08:19 Dose: 5,000 intlu Enoxaparin Sodium (Lovenox) 40 mg SC DAILY [facility]; Protocol Last Admin: 12/05/18 08:19 Dose: 40 mg Ferrous Sulfate (Feosol) 325 mg PO BID [facility] Last Admin: 12/05/18 08:20 Dose: 325 mg Folic Acid (Folic Acid) 1 mg PO DAILY [facility] Last Admin: 12/05/18 08:19 Dose: 1 mg Home Med (Linaclotide [Linzess]) 145 mcg PO DAILY [facility] Last Admin: 12/05/18 08:19 Dose: 145 mcg Hydrochlorothiazide (Hydrodiuril) 25 mg PO DAILY [facility] Last Admin: 12/05/18 08:20 Dose: 25 mg Ketorolac Tromethamine (Toradol) 30 mg IM Q6 PRN PRN Reason: Pain, severe (8-10) Ondansetron HCl (Zofran Inj) 4 mg IVP PRN PRN PRN Reason: Nausea/Vomiting Oxycodone HCl (Oxycontin Extended Release Tab) 10 mg PO Q12 [facility] Stop: 12/08/18 09:01 Last Admin: 12/05/18 08:19 Dose: 10 mg Senna/Docusate Sodium (Senokot S 50 Mg-8.6 Mg) 2 tab PO HS [facility] Last Admin: 12/04/18 21:25 Dose: 2 tab Tramadol HCl (Ultram) 50 mg PO Q4 PRN PRN Reason: Pain, moderate (4-7) Last Admin: 12/05/18 11:00 Dose: 50 mg - Labs Labs: 12/04/18 06:40 12/04/18 06:40 - Constitutional Appears: Well - Head Exam Head Exam: ATRAUMATIC, NORMAL INSPECTION, NORMOCEPHALIC - Eye Exam Eye Exam: EOMI, Normal appearance, PERRL Pupil Exam: NORMAL ACCOMODATION - ENT Exam ENT Exam: Mucous Membranes Moist, Normal Exam - Neck Exam Neck Exam: Full ROM, Normal Inspection - Respiratory Exam Respiratory Exam: Clear to Ausculation Bilateral, NORMAL BREATHING PATTERN - Cardiovascular Exam Cardiovascular Exam: REGULAR RHYTHM - GI/Abdominal Exam GI & Abdominal Exam: Soft, Normal Bowel Sounds - Rectal Exam Rectal Exam: NORMAL INSPECTION - Exam External exam: NORMAL EXTERNAL EXAM - Extremities Exam Extremities Exam: Full ROM, Normal Capillary Refill, Normal Inspection - Back Exam Back Exam: NORMAL INSPECTION - Neurological Exam Neurological Exam: Alert Neuro motor strength exam: Right Lower Extremity: 3 - Psychiatric Exam Psychiatric exam: Normal Affect, Normal Mood - Skin Skin Exam: Dry, Intact Assessment and Plan (1) Osteoarthritis of left hip Status: Acute (2) Pain management Status: Acute (3) Primary osteoarthritis of right hip Assessment & Plan: right hip replacemnt, equipment eval, pt ot therapy pain treatment Status: Acute (4) Status post left hip replacement Status: Acute
[2018-12-05 15:29] VITALS: O2SAT 98
[2018-12-05 20:07] VITALS: TEMP 98.7
[2018-12-05] MEDS ORDERED: oxyCODONE 10 mg ER Tab (oxyCONTIN) PO STA (20:30)
[2018-12-05] MEDS: Docusate-Senna 50 mg-8.6 mg Tab PO SCH (21:18)
[2018-12-06 08:01] VITALS: BP 101/53; PULSE 91
[2018-12-06] MEDS: Enoxaparin 40 mg Syringe SC SCH (08:50)
[2018-12-06] MEDS: Cholecalciferol 1,000 INTLU TAB PO SCH (08:51)
--- NOTE | 2018-12-06 08:58 | CP.PCM.PN ---
Subjective - Date & Time of Evaluation Date of Evaluation: 12/06/18 Time of Evaluation: 08:00 - Subjective Subjective: Patient seen and examined at bedside comfortable. Pain is well controlled. No new complaints. Pleased with her progress. Ambulating without assistive device. Scheduled to d/c home today. Objective - Vital Signs/Intake and Output Vital Signs (last 24 hours): Temp Pulse Resp BP Pulse Ox 98.7 F 91 H 20 101/53 L 98 12/06/18 08:01 12/06/18 08:01 12/06/18 08:01 12/06/18 08:01 12/06/18 08:01 - Medications Medications: Current Medications Acetaminophen (Tylenol 325mg Tab) 650 mg PO Q4 PRN PRN Reason: Pain, Mild (1-3) Aspirin (Aspirin Chewable) 81 mg PO DAILY [facility] Last Admin: 12/05/18 08:20 Dose: 81 mg Cholecalciferol (Vitamin D) 5,000 intlu PO DAILY [facility] Last Admin: 12/05/18 08:19 Dose: 5,000 intlu Enoxaparin Sodium (Lovenox) 40 mg SC DAILY [facility]; Protocol Last Admin: 12/05/18 08:19 Dose: 40 mg Ferrous Sulfate (Feosol) 325 mg PO BID [facility] Last Admin: 12/05/18 16:50 Dose: 325 mg Folic Acid (Folic Acid) 1 mg PO DAILY [facility] Last Admin: 12/05/18 08:19 Dose: 1 mg Home Med (Linaclotide [Linzess]) 145 mcg PO DAILY [facility] Last Admin: 12/05/18 08:19 Dose: 145 mcg Hydrochlorothiazide (Hydrodiuril) 25 mg PO DAILY [facility] Last Admin: 12/05/18 08:20 Dose: 25 mg Ketorolac Tromethamine (Toradol) 30 mg IM Q6 PRN PRN Reason: Pain, severe (8-10) Ondansetron HCl (Zofran Inj) 4 mg IVP PRN PRN PRN Reason: Nausea/Vomiting Senna/Docusate Sodium (Senokot S 50 Mg-8.6 Mg) 2 tab PO HS [facility] Last Admin: 12/05/18 21:18 Dose: 2 tab Tramadol HCl (Ultram) 50 mg PO Q4 PRN PRN Reason: Pain, moderate (4-7) Last Admin: 12/06/18 06:29 Dose: 50 mg - Labs Labs: 12/04/18 06:40 12/04/18 06:40 - Extremities Exam Additional comments: R hip: Dressings CDI incisions CDI with vianney, nylon to portal sites mild swelling to thigh sensation intact SP/DP/TN motor intact EHL/FHL/TA/G/Q/HS pedal pulse intact calves soft NT b/l Assessment and Plan (1) Status post right hip replacement Assessment & Plan: POD#7 s/p R TITO -PT/OT FWB -DVT ppx, ASA 81 mg BID -orthopedically stable for discharge -f/u in office next week -tramadol for pain -above d/w Dr. Brock in agreement Status: Acute
--- NOTE | 2018-12-06 09:41 | CP.PCM.DIS ---
<Melinda Munoz - Last Filed: 12/06/18 09:50> Provider - Provider Date of Admission: 11/30/18 14:01 Attending physician: Marta Zapata MD Primary care physician: Dr. Carney Consults: 12/01/18 09:13 Physiatry Consult Routine Comment: Consulting Provider: Jacob Jaffe Consulting Physician: Jacob Jaffe Reason for Consult: s/p left hip 12/03/18 10:09 Orthopedic Consult Routine Comment: Consulting Provider: Giacomo Brock III Consulting Physician: Giacomo Brock III Reason for Consult: thr Time Spent in preparation of Discharge (in minutes): 30 Hospital Course - Lab Results Lab Results: Most Recent Lab Values WBC 6.9 K/uL (4.8-10.8) 12/04/18 06:40 RBC 3.30 Mil/uL (3.80-5.20) L 12/04/18 06:40 Hgb 9.4 g/dL (12.0-16.0) L 12/04/18 06:40 Hct 28.1 % (34.0-47.0) L 12/04/18 06:40 MCV 85.1 fl (81.0-99.0) D 12/04/18 06:40 MCH 28.6 pg (27.0-31.0) 12/04/18 06:40 MCHC 33.6 g/dL (33.0-37.0) 12/04/18 06:40 RDW 14.5 % (11.5-14.5) 12/04/18 06:40 Plt Count 241 K/uL (130-400) 12/04/18 06:40 Sodium 138 mmol/l (132-148) 12/04/18 06:40 Potassium 3.6 MMOL/L (3.6-5.0) 12/04/18 06:40 Chloride 97 mmol/L (98-107) L 12/04/18 06:40 Carbon Dioxide 35 mmol/L (22-30) H 12/04/18 06:40 Anion Gap 10 (10-20) 12/04/18 06:40 BUN 14 mg/dl (7-17) 12/04/18 06:40 Creatinine 0.8 mg/dl (0.7-1.2) 12/04/18 06:40 Est GFR ( Amer) > 60 12/04/18 06:40 Est GFR (Non-Af Amer) > 60 12/04/18 06:40 Random Glucose 108 mg/dL (65-105) H 12/04/18 06:40 Calcium 9.1 mg/dL (8.4-10.2) 12/04/18 06:40 - Hospital Course Hospital Course: 68 y/o Female with PMH of HTN, gastritis, RH arthritis with mitral regurgitation was seen and evaluated in TCU s/p Right Hip Replacement Surgery from 11/29/[address] Jain. Patient admitted to TCU for Rehab. Patient seen ambulating in the hallway, and overall pain is managed. Patient being discharged home. denies fever, nausea, vomiting, shortness of breath, abdominal pain, dysuria, polyuria or chest pain at this time. 1. S/P elective RIGHT THR - Pain contro: Rx Tramadol - Continue DVT prophylaxis 2.Acute Blood Loss Anemia - stable - continue ferrous sulfate 3.HTN - Asymptomatic, chronic, controlled - continue home meds HCTZ 25 mg daily 4.Rheumatoid Arthritis - Chronic - Continue home meds Embrel Injection Q1 week 5.DVT Prophylaxis - Rx ASA 81 mg BID - Date & Time of H&P Date of H&P: 12/06/18 Time of H&P: 09:44 Discharge Exam - Head Exam Head Exam: ATRAUMATIC, NORMAL INSPECTION, NORMOCEPHALIC - Eye Exam Eye Exam: Normal appearance, PERRL - ENT Exam ENT Exam: Mucous Membranes Moist, Normal Exam - Neck Exam Neck exam: Full Rom - Respiratory Exam Respiratory Exam: Clear to PA & Lateral, NORMAL BREATHING PATTERN. absent: Rales, Rhonchi, Wheezes - Cardiovascular Exam Cardiovascular Exam: REGULAR RHYTHM, +S1, +S2 - GI/Abdominal Exam GI & Abdominal Exam: Mass, Normal Bowel Sounds. absent: Distended, Firm, Guarding - Extremities Exam Extremities exam: tenderness Additional comments: BEBETO vac dressing in place, minimal pain with range of motion to Right LE - Back Exam Back exam: absent: CVA tenderness (L), CVA tenderness (R) - Neurological Exam Neurological exam: Alert, Oriented x3 - Psychiatric Exam Psychiatric exam: Normal Affect, Normal Mood - Skin Skin Exam: Normal Color Discharge Plan - Discharge Medications Prescriptions: Aspirin 81 mg PO BID #30 tab.chew oxyCODONE/Acetaminophen [Percocet 5/325 mg Tab] 1 ea PO Q6 PRN #20 tab PRN Reason: Pain, Severe (8-10) Tramadol HCl [Ultram] 50 mg PO Q6 PRN #20 tab PRN Reason: Pain, Moderate (4-7) - Follow Up Plan Condition: GOOD Disposition: HOME/ ROUTINE Patient education suggested?: Yes Instructions: Total Hip Replacement (DC) Additional Instructions: Patient to follow up with Dr. Brock in his office within 1 week of discharge <Zaki Ventura D - Last Filed: 12/06/18 13:44> Provider - Provider Date of Admission: 11/30/18 14:01 Attending physician: Marta Zapata MD Consults: 12/01/18 09:13 Physiatry Consult Routine Comment: Consulting Provider: Jacob Jaffe Consulting Physician: Jacob Jaffe Reason for Consult: s/p left hip 12/03/18 10:09 Orthopedic Consult Routine Comment: Consulting Provider: Giacomo Brock III Consulting Physician: Giacomo Brock III Reason for Consult: thr Hospital Course - Lab Results Lab Results: Most Recent Lab Values WBC 6.9 K/uL (4.8-10.8) 12/04/18 06:40 RBC 3.30 Mil/uL (3.80-5.20) L 12/04/18 06:40 Hgb 9.4 g/dL (12.0-16.0) L 12/04/18 06:40 Hct 28.1 % (34.0-47.0) L 12/04/18 06:40 MCV 85.1 fl (81.0-99.0) D 12/04/18 06:40 MCH 28.6 pg (27.0-31.0) 12/04/18 06:40 MCHC 33.6 g/dL (33.0-37.0) 12/04/18 06:40 RDW 14.5 % (11.5-14.5) 12/04/18 06:40 Plt Count 241 K/uL (130-400) 12/04/18 06:40 Sodium 138 mmol/l (132-148) 12/04/18 06:40 Potassium 3.6 MMOL/L (3.6-5.0) 12/04/18 06:40 Chloride 97 mmol/L (98-107) L 12/04/18 06:40 Carbon Dioxide 35 mmol/L (22-30) H 12/04/18 06:40 Anion Gap 10 (10-20) 12/04/18 06:40 BUN 14 mg/dl (7-17) 12/04/18 06:40 Creatinine 0.8 mg/dl (0.7-1.2) 12/04/18 06:40 Est GFR ( Amer) > 60 12/04/18 06:40 Est GFR (Non-Af Amer) > 60 12/04/18 06:40 Random Glucose 108 mg/dL (65-105) H 12/04/18 06:40 Calcium 9.1 mg/dL (8.4-10.2) 12/04/18 06:40 Attending/Attestation - Attestation I have personally seen and examined this patient.: Yes I have fully participated in the care of the patient.: Yes I have reviewed all pertinent clinical information, including history, physical exam and plan: Yes Notes (Text): 12/06/18 13:43 Patient seen and examined with resident. Case discussed and agreed with assessment. Patient discharged in stable condition.
== END 2018-12-06 12:35 | disposition home or self-care (01) | DRG 560 ==
LOC: H.TCU 14:01
PROVIDERS: ADMIT Hospitalist; ATTEND Hospitalist
PROC: F07Z9FZ Gait Training/Functional Ambulation Treatment using Assistive, Adaptive, Supportive or Protective Equipment (ICD-10-PCS; principal; 2018-11-30)
PROC: F07L6FZ Therapeutic Exercise Treatment of Musculoskeletal System - Lower Back / Lower Extremity using Assistive, Adaptive, Supportive or Protective Equipment (ICD-10-PCS; 2018-11-30)
PROC: F08Z4FZ Home Management Treatment using Assistive, Adaptive, Supportive or Protective Equipment (ICD-10-PCS; 2018-11-30)
PROC: F08Z2FZ Grooming/Personal Hygiene Treatment using Assistive, Adaptive, Supportive or Protective Equipment (ICD-10-PCS; 2018-12-01)
DX: Z47.1 Aftercare following joint replacement surgery (principal); D62 Acute posthemorrhagic anemia; Z96.643 Presence of artificial hip joint, bilateral; M16.11 Unilateral primary osteoarthritis, right hip; G89.18 Other acute postprocedural pain; M06.9 Rheumatoid arthritis, unspecified; I34.0 Nonrheumatic mitral (valve) insufficiency; I10 Essential (primary) hypertension; K29.70 Gastritis, unspecified, without bleeding; Z79.82 Long term (current) use of aspirin; Z79.899 Other long term (current) drug therapy; Z88.0 Allergy status to penicillin